=== PATIENT | male | born 1940 | race Caucasian/White ===

== ENCOUNTER 2016-10-06 19:11 | Inpatient (IN) | payer MEDICARE, OTHER ==
[2016-10-06] MEDS ORDERED: SODIUM CHLORIDE 0.9% 1,000 ML IV ONE ×2 (19:40)
[2016-10-06] MEDS ORDERED: INSULIN REGULAR HUMAN 100 UNIT in SODIUM CHLORIDE 0.9% 100ML 99 ML IV STA (19:53)
[2016-10-06] MEDS ORDERED: INSULIN REGULAR HUMAN 100 UNIT/1 ML 10 ML MDV ONE (19:57)
[2016-10-06] MEDS ORDERED: ACETAMINOPHEN 325 MG TABLET PO PRN (20:36)
[2016-10-06] MEDS ORDERED: ONDANSETRON 4 MG/2 ML VIAL IVP PRN (20:36)
[2016-10-06] MEDS ORDERED: TEMAZEPAM 15 MG CAPSULE PO PRN (20:36)
[2016-10-06] MEDS ORDERED: INSULIN REGULAR HUMAN 100 UNIT in SODIUM CHLORIDE 0.9% 100ML 99 ML IV SCH (21:00)
[2016-10-06] MEDS ORDERED: FAMOTIDINE 20 MG/50 ML 50 ML IV SCH (21:00)
[2016-10-06] MEDS ORDERED: NS W/20 MEQ KCL 1,000 ML IV SCH (21:00)
[2016-10-06] MEDS: SODIUM CHLORIDE FLUSH 0.9% 10 ML SYRINGE IVP SCH (22:36)
[2016-10-06] MEDS ORDERED: diphenhydrAMINE INJ 50 MG/ML VIAL IVP PRN (22:53)
[2016-10-06] MEDS ORDERED: METOPROLOL TARTRATE 25 MG TABLET PO STA (22:55)
[2016-10-06] MEDS ORDERED: SODIUM CHLORIDE 0.9% 1,000 ML IV SCH (23:00)
[2016-10-06] MEDS: BENZONATATE 100 MG CAPSULE PO PRN (23:17)
[2016-10-07] MEDS ORDERED: NS W/20 MEQ KCL 1,000 ML IV SCH (02:00)
[2016-10-07] MEDS ORDERED: INSULIN REGULAR HUMAN 100 UNIT in SODIUM CHLORIDE 0.9% 100ML 99 ML IV ONE (05:48)
[2016-10-07] MEDS: SODIUM CHLORIDE FLUSH 0.9% 10 ML SYRINGE IVP SCH ×3 (06:14→22:00)
[2016-10-07] MEDS: NEUTRA-PHOS 250 MG TABLET PO SCH ×2 (06:51→08:15)
[2016-10-07] MEDS ORDERED: D5.45NS W/20 MEQ KCL 1,000 ML IV SCH ×2 (07:00→07:59)
[2016-10-07] MEDS: ASPIRIN EC 81 MG TABLET PO SCH (08:15)
[2016-10-07] MEDS: CLOPIDOGREL 75 MG TABLET PO SCH (08:16)
[2016-10-07] MEDS: ENOXAPARIN 40 MG/0.4 ML SYRINGE SUBQ SCH (08:16)
[2016-10-07] MEDS: METOPROLOL TARTRATE 25 MG TABLET PO SCH (08:16)
[2016-10-07] MEDS: FAMOTIDINE 20 MG/50 ML 50 ML IV SCH (08:16)
[2016-10-07] MEDS: LOSARTAN 50 MG TABLET PO SCH (08:16)
[2016-10-07] MEDS ORDERED: GLUCAGON 1 MG/ML VIAL SUBQ PRN (08:59)
[2016-10-07] MEDS ORDERED: DEXTROSE 5% 1,000 ML IV PRN (08:59)
[2016-10-07] MEDS ORDERED: DEXTROSE GEL 37.5 GM TUBE PO PRN (08:59)
[2016-10-07] MEDS ORDERED: DEXTROSE 50% ABBOJECT 25 GM/50 ML SYRINGE IVP PRN (08:59)
[2016-10-07] MEDS ORDERED: INSULIN GLARGINE 300 UNIT/3 ML PEN SUBQ ONE (09:00)
[2016-10-07] MEDS ORDERED: BISOPROLOL FUMARATE 5 MG PO SCH (09:00)
[2016-10-07] MEDS ORDERED: FAMOTIDINE 20 MG/50 ML 50 ML IV SCH (09:00)
[2016-10-07] MEDS ORDERED: INSULIN ASPART 300 UNIT/3 ML PEN SUBQ SCH (12:00)
[2016-10-07] MEDS: BENZONATATE 100 MG CAPSULE PO PRN (13:42)
[2016-10-07] MEDS: INSULIN ASPART 300 UNIT/3 ML PEN SUBQ SCH ×2 (17:15→21:58)
[2016-10-07] MEDS ORDERED: INSULIN GLARGINE 300 UNIT/3 ML PEN SUBQ SCH (21:00)
[2016-10-08] MEDS ORDERED: INSULIN LISPRO 100 UNIT/1 ML 10 ML MDV SUBQ STA (02:15)
[2016-10-08] MEDS ORDERED: LORazepam 2 MG/ML SYRINGE IVP PRN (02:16)
[2016-10-08] MEDS ORDERED: INSULIN ASPART 300 UNIT/3 ML PEN SUBQ STA (02:21)
[2016-10-08] MEDS: SODIUM CHLORIDE FLUSH 0.9% 10 ML SYRINGE IVP SCH ×3 (05:21→20:58)
[2016-10-08] MEDS: INSULIN ASPART 300 UNIT/3 ML PEN SUBQ SCH ×7 (08:04→20:57)
[2016-10-08] MEDS ORDERED: SODIUM CHLORIDE 0.9% 1,000 ML IV ONE (08:15)
[2016-10-08] MEDS: ENOXAPARIN 40 MG/0.4 ML SYRINGE SUBQ SCH (08:50)
[2016-10-08] MEDS: ASPIRIN EC 81 MG TABLET PO SCH (08:50)
[2016-10-08] MEDS: FAMOTIDINE 20 MG/50 ML 50 ML IV SCH (08:50)
[2016-10-08] MEDS: CLOPIDOGREL 75 MG TABLET PO SCH (08:51)
[2016-10-08] MEDS: INSULIN GLARGINE 300 UNIT/3 ML PEN SUBQ SCH (08:55)
[2016-10-08] MEDS: METOPROLOL TARTRATE 25 MG TABLET PO SCH ×3 (08:56→20:56)
[2016-10-08] MEDS: LOSARTAN 50 MG TABLET PO SCH (08:56)
[2016-10-08] MEDS ORDERED: MULTIVITAMIN 10 ML, THIAMINE INJ 100 MG, FOLIC ACID INJ 1 MG in SODIUM CHLORIDE 0.9% 1,... IV SCH (09:00)
[2016-10-08] MEDS ORDERED: METOPROLOL 5 MG/5 ML VIAL IVP STA ×2 (09:11→18:25)
[2016-10-08] MEDS ORDERED: SODIUM CHLORIDE 0.9% 250 ML IV ONE (10:22)
[2016-10-08] MEDS: cefTRIAXone 1 GM in SODIUM CHLORIDE 0.9% MINIBAG 100 ML IV SCH (10:26)
[2016-10-08] MEDS: AZITHROMYCIN INJ 500 MG in SODIUM CHLORIDE 0.9% 250 ML IV SCH (11:15)
[2016-10-08] MEDS ORDERED: METOPROLOL TARTRATE 50 MG TABLET PO STA (18:44)
[2016-10-08] MEDS: ATORVASTATIN 10 MG TABLET PO SCH (20:55)
[2016-10-08] MEDS: SODIUM CHLORIDE FLUSH 0.9% 10 ML SYRINGE IVP PRN (20:58)
[2016-10-09] MEDS ORDERED: SODIUM CHLORIDE 0.9% 1,000 ML IV SCH (00:57)
[2016-10-09] MEDS ORDERED: DIGOXIN 500 MCG/2 ML AMP IVP STA ×2 (02:15→06:14)
[2016-10-09] MEDS ORDERED: DIGOXIN 500 MCG/2 ML AMP IVP ONE ×2 (02:17→02:33)
[2016-10-09] MEDS: SODIUM CHLORIDE FLUSH 0.9% 10 ML SYRINGE IVP PRN ×3 (02:40→08:48)
[2016-10-09] MEDS ORDERED: DIGOXIN 500 MCG/2 ML AMP IVP SCH (02:51)
[2016-10-09] MEDS ORDERED: diltiaZEM INJ 5 MG/ML VIAL IVP SCH (03:19)
[2016-10-09] MEDS ORDERED: SODIUM CHLORIDE 0.9% 1,000 ML IV ONE (05:03)
[2016-10-09] MEDS: SODIUM CHLORIDE FLUSH 0.9% 10 ML SYRINGE IVP SCH ×3 (05:18→21:11)
[2016-10-09] MEDS: ASPIRIN EC 81 MG TABLET PO SCH (08:33)
[2016-10-09] MEDS: CLOPIDOGREL 75 MG TABLET PO SCH (08:34)
[2016-10-09] MEDS: ENOXAPARIN 40 MG/0.4 ML SYRINGE SUBQ SCH (08:34)
[2016-10-09] MEDS: LOSARTAN 50 MG TABLET PO SCH (08:38)
[2016-10-09] MEDS: BENZONATATE 100 MG CAPSULE PO PRN (08:39)
[2016-10-09] MEDS: METOPROLOL TARTRATE 25 MG TABLET PO SCH (08:39)
[2016-10-09] MEDS: cefTRIAXone 1 GM in SODIUM CHLORIDE 0.9% MINIBAG 100 ML IV SCH (08:42)
[2016-10-09] MEDS: INSULIN ASPART 300 UNIT/3 ML PEN SUBQ SCH ×7 (08:53→21:08)
[2016-10-09] MEDS: INSULIN GLARGINE 300 UNIT/3 ML PEN SUBQ SCH (08:56)
[2016-10-09] MEDS: FAMOTIDINE 20 MG/50 ML 50 ML IV SCH (09:33)
[2016-10-09] MEDS: AZITHROMYCIN INJ 500 MG in SODIUM CHLORIDE 0.9% 250 ML IV SCH (11:49)
[2016-10-09] MEDS ORDERED: METOPROLOL TARTRATE 25 MG TABLET PO SCH (12:33)
[2016-10-09] MEDS ORDERED: POTASSIUM CHLORIDE 20 MEQ TABLET PO STA (12:33)
[2016-10-09] MEDS ORDERED: METOPROLOL TARTRATE 50 MG TABLET PO STA (12:50)
[2016-10-09] MEDS ORDERED: INSULIN ASPART 300 UNIT/3 ML PEN SUBQ SCH (12:51)
[2016-10-09] MEDS: ATORVASTATIN 10 MG TABLET PO SCH (21:11)
[2016-10-10] MEDS: BENZONATATE 100 MG CAPSULE PO PRN ×3 (02:34→23:45)
[2016-10-10] MEDS: SODIUM CHLORIDE FLUSH 0.9% 10 ML SYRINGE IVP SCH ×3 (05:13→21:08)
[2016-10-10] MEDS ORDERED: POTASSIUM CHLORIDE 20 MEQ TABLET PO STA (06:49)
[2016-10-10] MEDS: NEUTRA-PHOS 250 MG TABLET PO SCH ×3 (08:19→16:34)
[2016-10-10] MEDS: SACCHAROMYCES BOULARDII 250 MG CAPSULE PO SCH ×2 (08:19→16:35)
[2016-10-10] MEDS: ASPIRIN EC 81 MG TABLET PO SCH (08:20)
[2016-10-10] MEDS: LOSARTAN 50 MG TABLET PO SCH (08:20)
[2016-10-10] MEDS: CLOPIDOGREL 75 MG TABLET PO SCH (08:20)
[2016-10-10] MEDS: cefTRIAXone 1 GM in SODIUM CHLORIDE 0.9% MINIBAG 100 ML IV SCH (08:20)
[2016-10-10] MEDS: METOPROLOL TARTRATE 50 MG TABLET PO SCH ×2 (08:21→21:08)
[2016-10-10] MEDS: INSULIN ASPART 300 UNIT/3 ML PEN SUBQ SCH ×7 (08:27→21:08)
[2016-10-10] MEDS: INSULIN GLARGINE 300 UNIT/3 ML PEN SUBQ SCH (08:28)
[2016-10-10] MEDS: ENOXAPARIN 40 MG/0.4 ML SYRINGE SUBQ SCH (08:28)
[2016-10-10] MEDS: FAMOTIDINE 20 MG/50 ML 50 ML IV SCH (09:27)
[2016-10-10] MEDS ORDERED: DIGOXIN 125 MCG TABLET PO ONE (10:00)
[2016-10-10] MEDS: SODIUM CHLORIDE FLUSH 0.9% 10 ML SYRINGE IVP PRN (10:04)
[2016-10-10] MEDS: DIGOXIN 125 MCG TABLET PO SCH ×2 (16:34→23:40)
[2016-10-10] MEDS: ATORVASTATIN 10 MG TABLET PO SCH (21:08)
[2016-10-11] MEDS: SODIUM CHLORIDE FLUSH 0.9% 10 ML SYRINGE IVP SCH ×2 (04:48→13:15)
[2016-10-11] MEDS: INSULIN ASPART 300 UNIT/3 ML PEN SUBQ SCH ×4 (08:23→11:52)
[2016-10-11] MEDS: ASPIRIN EC 81 MG TABLET PO SCH (08:24)
[2016-10-11] MEDS: NEUTRA-PHOS 250 MG TABLET PO SCH ×2 (08:24→11:54)
[2016-10-11] MEDS: SACCHAROMYCES BOULARDII 250 MG CAPSULE PO SCH (08:24)
[2016-10-11] MEDS: CLOPIDOGREL 75 MG TABLET PO SCH (08:25)
[2016-10-11] MEDS: INSULIN GLARGINE 300 UNIT/3 ML PEN SUBQ SCH (08:25)
[2016-10-11] MEDS: FAMOTIDINE 20 MG/50 ML 50 ML IV SCH (08:25)
[2016-10-11] MEDS: BENZONATATE 100 MG CAPSULE PO PRN (08:27)
[2016-10-11] MEDS: LOSARTAN 50 MG TABLET PO SCH (08:27)
[2016-10-11] MEDS: METOPROLOL TARTRATE 50 MG TABLET PO SCH (08:28)
[2016-10-11] MEDS ORDERED: METOPROLOL TARTRATE 50 MG TABLET PO SCH (08:28)
[2016-10-11] MEDS: ENOXAPARIN 40 MG/0.4 ML SYRINGE SUBQ SCH (08:31)
[2016-10-11] MEDS ORDERED: POTASSIUM CHLORIDE 20 MEQ TABLET PO STA (08:50)
[2016-10-11] MEDS ORDERED: levoFLOXacin 250 MG TABLET PO SCH (09:00)
[2016-10-12] MEDS ORDERED: DIGOXIN 125 MCG TABLET PO SCH (09:00)
== END 2016-10-11 14:20 | disposition home or self-care (01) | DRG 637 ==
DX: E13.10 Other specified diabetes mellitus with ketoacidosis without coma (principal); J18.9 Pneumonia, unspecified organism; N17.9 Acute kidney failure, unspecified; I10 Essential (primary) hypertension; E78.00 Pure hypercholesterolemia, unspecified; I48.91 Unspecified atrial fibrillation; I12.9 Hypertensive chronic kidney disease with stage 1 through stage 4 chronic kidney disease, or unspecified chronic kidney disease; N18.9 Chronic kidney disease, unspecified; R21 Rash and other nonspecific skin eruption; I25.10 Atherosclerotic heart disease of native coronary artery without angina pectoris; E87.6 Hypokalemia; E83.39 Other disorders of phosphorus metabolism; R31.9 Hematuria, unspecified; E86.0 Dehydration; I95.2 Hypotension due to drugs; T44.7X5A Adverse effect of beta-adrenoreceptor antagonists, initial encounter; Y92.239 Unspecified place in hospital as the place of occurrence of the external cause; R09.02 Hypoxemia; I73.9 Peripheral vascular disease, unspecified; I71.2 Thoracic aortic aneurysm, without rupture; E78.5 Hyperlipidemia, unspecified; Z79.82 Long term (current) use of aspirin; Z95.828 Presence of other vascular implants and grafts; Z79.02 Long term (current) use of antithrombotics/antiplatelets; Z95.5 Presence of coronary angioplasty implant and graft; Z71.3 Dietary counseling and surveillance

== ENCOUNTER 2016-10-25 15:11 | Outpatient (CLI) | payer MEDICARE, OTHER | END 2016-10-25 15:12 | disposition home or self-care (01) | DX: I48.91 Unspecified atrial fibrillation (principal) ==

== ENCOUNTER 2017-05-30 09:13 | Outpatient (CLI) | payer MEDICARE, OTHER ==
[2017-05-30 18:31] LABS: HEMOGLOBIN A1C 0.78 g/dL
[2017-05-30 18:44] LABS: ALBUMIN/GLOBULIN RATIO 1.2 (1.0-2.2); BILIRUBIN,TOTAL 0.7 mg/dL (0.2-1.0); BUN - BLOOD UREA NITROGEN 22 mg/dL (6-20); CALCIUM 9.2 mg/dL (8.5-10.3); CARBON DIOXIDE - CO2 26 mmol/L (21-32); CHLORIDE 104 mmol/L (101-111); CHOL/HDL RATIO 6.1 (<5.0); CHOLESTEROL 171 mg/dL; CREATININE 1.5 mg/dL (0.6-1.2); GFR - MDRD 45 (>89); GLUCOSE 153 mg/dL (70-100); HDL CHOLESTEROL 28 mg/dL; LDL/HDL RATIO 2.4 (<3.6); POTASSIUM 4.5 mmol/L (3.5-5.0); SODIUM 137 mmol/L (135-145); TOTAL PROTEIN 7.3 g/dL (6.7-8.2); TRIGLYCERIDES 381 mg/dL; VLDL CHOLESTEROL 76 mg/dL
== END 2017-05-30 09:14 | disposition home or self-care (01) ==
LOC: LAB.F 09:13
PROVIDERS: ATTEND Internal Medicine
DX: C61 Malignant neoplasm of prostate (principal); E78.5 Hyperlipidemia, unspecified; E11.9 Type 2 diabetes mellitus without complications; I25.810 Atherosclerosis of coronary artery bypass graft(s) without angina pectoris
CPT/HCPCS: 36415; 80053; 80061; 83036; 84153

== ENCOUNTER 2017-09-13 09:04 | Outpatient (CLI) | payer MEDICARE, OTHER ==
[2017-09-13 18:02] LABS: CALCIUM 9.1 mg/dL (8.5-10.3); CREATININE 1.4 mg/dL (0.6-1.2)
[2017-09-13 18:09] LABS: HB2 TOTAL 16.5 g/dL; HEMOGLOBIN A1C 0.96 g/dL; HEMOGLOBIN A1C % 7.5 % (4.6-6.2)
== END 2017-09-13 09:05 | disposition home or self-care (01) ==
LOC: LAB.F 09:04
PROVIDERS: ATTEND Internal Medicine
DX: E11.9 Type 2 diabetes mellitus without complications (principal); N18.9 Chronic kidney disease, unspecified
CPT/HCPCS: 36415; 80048; 83036

== ENCOUNTER 2018-02-27 08:44 | Outpatient (CLI) | payer MEDICARE, OTHER ==
[2018-02-27 11:14] LABS: EOSINOPHILS # (AUTO) 0.3 10^3/uL (0.0-0.7); EOSINOPHILS % (AUTO) 6.8 %; HGB - HEMOGLOBIN 14.2 g/dL (14.0-18.0); LYMPHOCYTES # (AUTO) 0.9 10^3/uL (1.5-3.5); LYMPHOCYTES % (AUTO) 22.5 %; MEAN CORPUSCULAR HEMOGLOBIN 34.4 pg (27.0-31.0); MEAN CORPUSCULAR HGB CONC 33.8 g/dL (32.0-36.0); MEAN CORPUSCULAR VOLUME 101.8 fL (80.0-94.0); MONOCYTES # (AUTO) 0.4 10^3/uL (0.0-1.0); MONOCYTES % (AUTO) 8.7 %; NEUTROPHILS # (AUTO) 2.5 10^3/uL (1.5-6.6); PLT - PLATELET COUNT 132 10^3/uL (130-450); RED BLOOD COUNT 4.12 10^6/uL (4.70-6.10); RED CELL DISTRIBUTION WIDTH 13.1 % (12.0-15.0); WHITE BLOOD COUNT 4.1 x10^3/uL (4.8-10.8)
[2018-02-27 11:31] LABS: ALBUMIN 4.1 g/dL (3.2-5.5); ALBUMIN/GLOBULIN RATIO 1.3 (1.0-2.2); ALKALINE PHOSPHATASE 61 IU/L (42-121); ALT ALANINE AMINOTRANSFERASE 54 IU/L (10-60); AST ASPARTATE AMINOTRANSFERASE 55 IU/L (10-42); BUN - BLOOD UREA NITROGEN 25 mg/dL (6-20); CALCIUM 9.4 mg/dL (8.5-10.3); CARBON DIOXIDE - CO2 29 mmol/L (21-32); CHLORIDE 105 mmol/L (101-111); CHOL/HDL RATIO 4.6 (<5.0); CHOLESTEROL 157 mg/dL; CREATININE 1.5 mg/dL (0.6-1.2); GFR - MDRD 45 (>89); GLUCOSE 155 mg/dL (70-100); HDL CHOLESTEROL 34 mg/dL; LDL CHOLESTEROL,CALCULATED 68 mg/dL; SODIUM 139 mmol/L (135-145); TOTAL PROTEIN 7.3 g/dL (6.7-8.2); VLDL CHOLESTEROL 55 mg/dL
[2018-02-27 11:50] LABS: HB2 TOTAL 15.1 g/dL; HEMOGLOBIN A1C 0.77 g/dL; HEMOGLOBIN A1C % 6.8 % (4.6-6.2)
== END 2018-02-27 08:45 | disposition home or self-care (01) ==
LOC: LAB.F 08:44
PROVIDERS: ATTEND Internal Medicine
DX: N18.9 Chronic kidney disease, unspecified (principal); E11.9 Type 2 diabetes mellitus without complications; C61 Malignant neoplasm of prostate; E78.5 Hyperlipidemia, unspecified; I25.810 Atherosclerosis of coronary artery bypass graft(s) without angina pectoris
CPT/HCPCS: 36415; 80053; 80061; 83036; 83721; 84153; 85025

== ENCOUNTER 2018-09-11 15:12 | Outpatient (CLI) | payer MEDICARE, OTHER ==
--- NOTE | 2018-09-12 11:43 | Ultrasound Report ---
Reason: ANEURYSM OF AORTA IN DISEASES CLASSIFIED ELSEWHERE Procedure Date: 09/11/2018 Accession Number: [id number] / [id number] Procedure: US - Retroperitoneal Limited CPT Code: FULL RESULT: EXAM: AORTIC DOPPLER ULTRASOUND EXAM DATE: 09/11/2018 04:00 PM. CLINICAL HISTORY: Aneurysm of aorta in diseases classified elsewhere. COMPARISON: None. TECHNIQUE: Real-time sonographic imaging of retroperitoneal vascular structures, including color-flow, Doppler flow and spectral analysis was performed by the remote advisor. Multiple petroleum products sales representative static images were saved for review. FINDINGS: Aorta: The abdominal aorta was adequately visualized. There is a fusiform aneurysm of the infrarenal aorta with maximal dimension of 4.1 cm, reportedly 4.0 cm in 2016. This difference is possibly due to technique. Aorta: Proximal: Sagittal PA: 2.3 x 2.5 cm. Mid: Transverse: 2.6 x 2.5 cm. Distal: Transverse: 3.8 x 3.6 cm. (Distal AAA) 3.6 x 4.1 cm. (Prox AAA) Iliacs: Right Iliac: Transverse: 1.7 x 1.7 cm. Bilateral patent. Left Iliac: Transverse: 1.8 x 1.8 cm. Stents visualized. Iliac Vessels: The visualized proximal common iliac arteries are stented with measurements as above. Other: None. IMPRESSION: Abdominal aortic aneurysm measuring up to 4.1 cm. RADIA
== END 2018-09-11 15:13 | disposition home or self-care (01) ==
LOC: DI 15:12
PROVIDERS: ATTEND Nurse Practitioner
DX: I71.4 Abdominal aortic aneurysm, without rupture (principal)
CPT/HCPCS: 76775

== ENCOUNTER 2019-05-12 08:05 | Outpatient (CLI) | payer MEDICARE, OTHER ==
[2019-05-12 10:31] LABS: BASOPHILS # (AUTO) 0.1 10^3/uL (0.0-0.1); BASOPHILS % (AUTO) 1.2 %; EOSINOPHILS # (AUTO) 0.3 10^3/uL (0.0-0.7); EOSINOPHILS % (AUTO) 5.9 %; HGB - HEMOGLOBIN 13.3 g/dL (14.0-18.0); LYMPHOCYTES # (AUTO) 1.2 10^3/uL (1.5-3.5); LYMPHOCYTES % (AUTO) 20.6 %; MEAN CORPUSCULAR HEMOGLOBIN 34.4 pg (27.0-31.0); MEAN CORPUSCULAR HGB CONC 32.2 g/dL (32.0-36.0); MEAN CORPUSCULAR VOLUME 106.7 fL (80.0-94.0); MEAN PLATELET VOLUME 10.7 fL (7.4-11.4); MONOCYTES # (AUTO) 0.4 10^3/uL (0.0-1.0); MONOCYTES % (AUTO) 6.6 %; NEUTROPHILS # (AUTO) 3.7 10^3/uL (1.5-6.6); PLT - PLATELET COUNT 140 10^3/uL (130-450); RED BLOOD COUNT 3.87 10^6/uL (4.70-6.10); RED CELL DISTRIBUTION WIDTH 13.3 % (12.0-15.0); WHITE BLOOD COUNT 5.7 x10^3/uL (4.8-10.8)
[2019-05-12 10:42] LABS: HB2 TOTAL 14.3 g/dL; HEMOGLOBIN A1C 0.76 g/dL
[2019-05-12 11:26] LABS: FREE T4 (FREE THYROXINE) 0.75 ng/dL (0.58-1.64)
[2019-05-12 11:31] LABS: ALBUMIN 4.2 g/dL (3.2-5.5); ALBUMIN/GLOBULIN RATIO 1.2 (1.0-2.2); ALKALINE PHOSPHATASE 86 IU/L (42-121); ALT ALANINE AMINOTRANSFERASE 42 IU/L (10-60); AST ASPARTATE AMINOTRANSFERASE 41 IU/L (10-42); BILIRUBIN,TOTAL 1.1 mg/dL (0.2-1.0); BUN - BLOOD UREA NITROGEN 24 mg/dL (6-20); CALCIUM 9.1 mg/dL (8.5-10.3); CARBON DIOXIDE - CO2 28 mmol/L (21-32); CHLORIDE 104 mmol/L (101-111); CHOL/HDL RATIO 4.5 (<5.0); CHOLESTEROL 153 mg/dL; CREATININE 1.4 mg/dL (0.6-1.2); GFR - MDRD 49 (>89); GLUCOSE 153 mg/dL (70-100); HDL CHOLESTEROL 34 mg/dL; LDL CHOLESTEROL,CALCULATED 73 mg/dL; LDL/HDL RATIO 2.1 (<3.6); SODIUM 141 mmol/L (135-145); TOTAL PROTEIN 7.6 g/dL (6.7-8.2); URIC ACID 4.6 mg/dL (2.6-7.2); VLDL CHOLESTEROL 46 mg/dL
== END 2019-05-12 08:06 | disposition home or self-care (01) ==
LOC: LAB.S 08:05
PROVIDERS: ATTEND Nurse Practitioner
DX: E11.22 Type 2 diabetes mellitus with diabetic chronic kidney disease (principal); N18.9 Chronic kidney disease, unspecified; I25.810 Atherosclerosis of coronary artery bypass graft(s) without angina pectoris; E78.5 Hyperlipidemia, unspecified; I48.91 Unspecified atrial fibrillation; M1A.9XX0 Chronic gout, unspecified, without tophus (tophi)
CPT/HCPCS: 36415; 80053; 80061; 83036; 83721; 84439; 84443; 84550; 85025

== ENCOUNTER 2021-10-05 08:22 | Day surgery (SDC) | payer MEDICARE, OTHER ==
[~2021-10-05 08:22] MED LIST: CYCLOPENTOLATE 1% OPHTH DROPS 2 ML ONE; KETOROLAC 0.45% OPHTH DROPS ONE; PHENYLEPHRINE 2.5% OPHTH 2 ML DROPS ONE; PROPARACAINE 0.5% OPHTH DROPS 15 ML ONE
[2021-10-05] MEDS ORDERED: LACTATED RINGERS 1,000 ML IV ONE ×2 (08:50→09:38)
--- NOTE | 2021-10-05 09:04 | ANESTHESIA ---
Pre-Anesthesia VS, & Labs - Diagnosis senile combined cataract - Procedure right cataract extraction with IOL Vital Signs: Temp Pulse Resp BP Pulse Ox 36.5 C 58 L 19 141/57 H 98 10/05/21 08:34 10/05/21 08:34 10/05/21 08:34 10/05/21 08:34 10/05/21 08:34 Height: 6 ft Weight (kg): 84.6 kg Body Mass Index: 25.2 BMI Classification: Overweight - NPO >8 hours - Lab Results Current Lab Results: Laboratory Tests 10/05/21 08:48: POC Whole Bld Glucose 133 H Home Medications and Allergies Home Medications: Ambulatory Orders Clopidogrel [Plavix] 75 mg PO DAILY 10/04/21 Glimepiride 4 tab PO BID 10/04/21 Metoprolol Tartrate [Lopressor] 50 mg PO DAILY 10/04/21 Aspirin [Aspirin EC] 81 mg PO DAILY 10/08/16 allopurinoL [Allopurinol] 100 mg PO DAILY 10/08/16 Clopidogrel [Plavix] 75 mg PO DAILY 10/04/21 Glimepiride 4 tab PO BID 10/04/21 Metoprolol Tartrate [Lopressor] 50 mg PO DAILY 10/04/21 Allergies/Adverse Reactions: Allergies Allergy/AdvReac Type Severity Reaction Status Date / Time No Known Drug Allergies Allergy Verified 10/06/16 19:17 Anes History & Medical History - Anesthetic History Anesthesia Complications: reports: No previous complications - Medical History Cardiovascular: reports: Hypertension, High cholesterol Pulmonary: reports: None Gastrointestinal: reports: GERD Urinary: reports: None Musculoskeletal: reports: None Endocrine/Autoimmune: reports: Type 2 diabetes Blood Disorders: reports: None Skin: reports: Other Smoking Status: Never smoker History of Cancer?: No - Surgical History Cardiothoracic: reports: Coronary stent Exam General: Alert, Oriented x3 Dental: WNL Mouth Opening: Greater than 4 Fingerbreadths Mallampati classification: II Thyromental Distance: greater than 6 cm Respiratory: Lungs clear Cardiovascular: Regular rate Plan Anesthesia Type: MAC Consent for Procedure(s) Verified and Reviewed: Yes Code Status: Attempt Resuscitation ASA classification: 3-Severe systemic disease Is this case an emergency?: No
[2021-10-05] MEDS ORDERED: MIDAZOLAM 2 MG/2 ML VIAL ONE (09:09)
[2021-10-05] MEDS ORDERED: BRIMONIDINE 0.2% OPHTH DROPS 5 ML OPTH ONE (09:28)
[2021-10-05] MEDS ORDERED: EPINEPHrine 1 MG/ML AMP IR ONE (09:28)
[2021-10-05] MEDS ORDERED: BSS/LIDOCAINE/EPINEPHRINE 1 ML SYRINGE IO ONE (09:28)
[2021-10-05] MEDS ORDERED: TRIAMCIN/MOXIFLOX OPHTHALMIC 0.6 ML VIAL IO ONE ×2 (09:28→11:38)
[2021-10-05] MEDS ORDERED: TIMOLOL 0.5% OPHTH DROPS OPTH ONE (09:28)
[2021-10-05] MEDS ORDERED: VANCOMYCIN OPHTHALMI 8MG/0.8ML 8 MG/0.8 ML SYRINGE IO ONE (09:29)
[2021-10-05] MEDS ORDERED: PROPARACAINE 0.5% OPHTH DROPS 15 ML EACHEYE ONE (09:29)
--- NOTE | 2021-10-05 09:46 | OPERATIVE REPORT ---
Operative Report - Other Other Information/Narrative: Date of Surgery: 10/05/21 Preop Dx: Visually significant cataract right eye. This was the first cataract surgery. Postop Dx: Same Procedure: Phacoemulsification with posterior chamber intraocular lens implant right eye Surgeon: Dr. Gordon Meza Anesthesia: Monitored anesthesia care Complications: None Operative Indications: This is a 81-year-old M with progressive vision loss in the right eye due to 2+ nuclear sclerotic, 2+ cortical and vacuolar cataract. Best corrected visual acuity was 20/40 with glare to 20/100 vision in the right eye. Indications for surgery were: - Overall decrease in vision - Difficulty seeing words on a computer screen - Difficulty reading - Difficulty seeing words, closed captions, or game scores on TV - Difficulty seeing street signs - Difficulty driving in low light or at night - Difficulty driving at night because of headlights from other vehicles - Difficulty with glare or bright lights in any situation The patient was consented at length concerning the risks and benefits of cataract surgery after which the patient expressed a desire to proceed with surgery. Operative Procedure: The patient was taken into OR#3 and placed under monitored anesthesia care. A surgical time-out was conducted confirming correct patient, correct procedure, and correct surgical site. The patient was given topical anesthesia and then prepped and draped in the usual sterile fashion. The eye was entered at the 6 and 3 oclock positions. Intracameral Shugarcaine was injected into the anterior chamber followed by a dispersive viscoelastic. A continuous-tear curvilinear capsulorhexis was performed. The nucleus was hydrodissected and phacoemulsified. The cortex was evacuated using automated infusion and aspiration. A cohesive viscoelastic was injected into the capsular bag and a 21.0 diopter intraocular lens was inserted into the bag. Infusion and aspiration were used to evacuate the viscoelastic materials from the eye. The wounds were hydrated and the eye inflated to physiologic pressure using balanced salt solution. Approximately 0.25ml of a mixture of triamcinolone and moxifloxacin was injected trans-sclerally into the vitreous in the inferotemporal quadrant using a 30 gauge cannula. An additional 0.55ml of a mixture of triamcinolone, moxifloxacin, and vancomycin was injected subconjunctivally in the superior quadrant for infection and inflammation prophylaxis. Wound integrity was checked with Weck-Leydi sponges. The patient was taken from the operating room in good condition and given post-op instructions.
--- NOTE | 2021-10-05 09:54 | ANESTHESIA POST OP EVALUATION ---
Anesthesia Post Eval - Post Anesthesia Eval Vitals: Last Vital Signs Temp 36.3 C L 10/05/21 09:45 Pulse 55 L 10/05/21 09:50 Resp 12 10/05/21 09:50 BP 123/64 10/05/21 09:50 Pulse Ox 98 10/05/21 09:50 CV Function Including HR & BP: Stable Pain Control: Satisfactory Nausea & Vomiting: Negative Mental Status: Baseline Respiratory Status: Airway Patent Hydration Status: Satisfactory Anesthesia Complications: None
[2021-10-05 10:29] VITALS: BP 119/69
[2021-10-05] MEDS ORDERED: BRIMONIDINE 0.2% OPHTH DROPS 5 ML ONE (11:39)
[2021-10-05] MEDS ORDERED: TIMOLOL 0.5% OPHTH DROPS ONE (11:39)
[2021-10-05] MEDS ORDERED: BSS/LIDOCAINE/EPINEPHRINE 1 ML VIAL ONE (11:39)
[2021-10-05] MEDS ORDERED: EPINEPHrine 1 MG/ML AMP ONE (11:39)
== END 2021-10-05 08:23 | disposition home or self-care (01) ==
LOC: SDS 08:22
PROVIDERS: ATTEND Ophthalmology
DX: E11.36 Type 2 diabetes mellitus with diabetic cataract (principal); H25.811 Combined forms of age-related cataract, right eye; Z79.84 Long term (current) use of oral hypoglycemic drugs
CPT/HCPCS: 66984; A9270; J3490; J7120

== ENCOUNTER 2022-02-09 09:01 | Outpatient (CLI) | payer MEDICARE, OTHER ==
[2022-02-09 14:55] LABS: CALCIUM 9.6 mg/dL (8.5-10.3); CREATININE 1.6 mg/dL (0.6-1.2); POTASSIUM 4.6 mmol/L (3.5-5.0)
[2022-02-09 20:19] LABS: ESTIMATED AVERAGE GLUCOSE 209 mg/dL (70-100); HEMOGLOBIN A1c% 8.9 % (4.27-6.07)
== END 2022-02-09 09:02 | disposition home or self-care (01) ==
LOC: LAB.S 09:01
PROVIDERS: ATTEND Nurse Practitioner
DX: E11.65 Type 2 diabetes mellitus with hyperglycemia (principal)
CPT/HCPCS: 36415; 80048; 83036

== ENCOUNTER 2022-07-27 09:00 | Outpatient (CLI) | payer MEDICARE, OTHER ==
[2022-07-27 15:20] LABS: ALBUMIN 3.8 g/dL (3.2-5.5); ALBUMIN/GLOBULIN RATIO 1.1 (1.0-2.2); ALKALINE PHOSPHATASE 74 IU/L (42-121); ALT ALANINE AMINOTRANSFERASE 27 IU/L (10-60); AST ASPARTATE AMINOTRANSFERASE 30 IU/L (10-42); BILIRUBIN,TOTAL 0.8 mg/dL (0.2-1.0); BUN - BLOOD UREA NITROGEN 25 mg/dL (6-20); CALCIUM 9.2 mg/dL (8.5-10.3); CARBON DIOXIDE - CO2 29 mmol/L (21-32); CHLORIDE 105 mmol/L (101-111); CHOL/HDL RATIO 6.7 (<5.0); CHOLESTEROL 167 mg/dL; CREATININE 1.4 mg/dL (0.6-1.2); GFR - MDRD 49 (>89); GLUCOSE 149 mg/dL (70-100); HDL CHOLESTEROL 25 mg/dL; LDL CHOLESTEROL,CALCULATED 82 mg/dL; LDL/HDL RATIO 3.3 (<3.6); POTASSIUM 4.2 mmol/L (3.5-5.0); SODIUM 141 mmol/L (135-145); TOTAL PROTEIN 7.2 g/dL (6.7-8.2); TRIGLYCERIDES 298 mg/dL; VLDL CHOLESTEROL 60 mg/dL
[2022-07-27 19:52] LABS: ESTIMATED AVERAGE GLUCOSE 180 mg/dL (70-100); HEMOGLOBIN A1c% 7.9 % (4.27-6.07)
== END 2022-07-27 09:01 | disposition home or self-care (01) ==
LOC: LAB.S 09:00
PROVIDERS: ATTEND Nurse Practitioner
DX: E11.22 Type 2 diabetes mellitus with diabetic chronic kidney disease (principal); E11.65 Type 2 diabetes mellitus with hyperglycemia; E78.2 Mixed hyperlipidemia
CPT/HCPCS: 36415; 80053; 80061; 82043; 82570; 83036; 83721

== ENCOUNTER 2024-03-17 23:26 | Outpatient (CLI) | payer MEDICARE, OTHER | END 2024-03-17 23:27 | disposition critical access hospital (66) | LOC: EMS 23:26 | DX: R51.9 Headache, unspecified (principal); R50.9 Fever, unspecified; R61 Generalized hyperhidrosis; R25.1 Tremor, unspecified; R32 Unspecified urinary incontinence | CPT/HCPCS: A0425; A0429 ==

== ENCOUNTER 2024-03-18 00:01 | Emergency (ER) | payer MEDICARE, OTHER ==
[2024-03-18 00:39] LABS: BASOPHILS % (AUTO) 0.2 %; EOSINOPHILS % (AUTO) 0.2 %; HCT - HEMATOCRIT 34.7 % (42.0-52.0); HGB - HEMOGLOBIN 11.2 g/dL (14.0-18.0); LYMPHOCYTES # (AUTO) 0.6 10^3/uL (1.5-3.5); LYMPHOCYTES % (AUTO) 6.8 %; MEAN CORPUSCULAR HEMOGLOBIN 34.3 pg (27.0-31.0); MEAN CORPUSCULAR HGB CONC 32.3 g/dL (32.0-36.0); MEAN CORPUSCULAR VOLUME 106.1 fL (80.0-94.0); MEAN PLATELET VOLUME 10.9 fL (7.4-11.4); MONOCYTES # (AUTO) 0.6 10^3/uL (0.0-1.0); MONOCYTES % (AUTO) 7.1 %; NEUTROPHILS # (AUTO) 7.3 10^3/uL (1.5-6.6); NEUTROPHILS % (AUTO) 85.2 %; PLT - PLATELET COUNT 89 10^3/uL (130-450); RED BLOOD COUNT 3.27 10^6/uL (4.70-6.10); RED CELL DISTRIBUTION WIDTH 13.2 % (12.0-15.0); WHITE BLOOD COUNT 8.6 x10^3/uL (4.8-10.8)
[2024-03-18 00:41] LABS: BILIRUBIN,URINE NEGATIVE (NEGATIVE); GLUCOSE, URINE (UA) 100 mg/dL (NEGATIVE); KETONES,URINE (UA) TRACE mg/dL (NEGATIVE); LEUKOCYTE ESTERASE, URINE NEGATIVE (NEGATIVE); NITRITE,URINE NEGATIVE (NEGATIVE); OCCULT BLOOD,URINE LARGE (NEGATIVE); PROTEIN,URINE 100 mg/dL (NEGATIVE); UROBILINOGEN,URINE 0.2 (NORMAL) E.U./dL (NORMAL)
[2024-03-18 00:45] LABS: CLARITY,URINE CLEAR (CLEAR)
[2024-03-18 00:47] LABS: WBC,URINE 0-3 /HPF (0-3)
[2024-03-18 00:48] LABS: BACTERIA,URINE None Seen /HPF (None Seen); SQUAMOUS EPITHELIAL CELL,UR NONE SEEN (<= Few)
--- NOTE | 2024-03-18 00:49 | ED Physician Documentation ---
History of Present Illness - Stated complaint Stated Complaint: GEN ILLNESS - Chief complaint Chief Complaint: General - Additonal information Additional information: 84-year-old male with history of diabetes, DKA, CAD, hypertension presents with fever, shortness of breath, generalized weakness and headache. The patient states that earlier today, he developed myalgias, fever (measured at home though he is not sure to what), intermittent and not sudden or severe headache, and general malaise with generalized weakness. No focal weakness or numbness. No cough, shortness of breath, abdominal or back or flank pain. No falls. He took Tylenol earlier in the morning but not recently otherwise. He felt some difficulty urinating with intermittent urinary incontinence at home. No dysuria. No diarrhea or constipation. No blood in stool. No rash. No recent antibiotics. No neck pain or stiffness or photophobia. No confusion. No other new concerns. ROS Constitutional: +fever, no chills Eyes: no visual disturbance, no discharge Ears, Nose, Mouth, Throat: no rhinorrhea, no sore throat Cardiovascular: no chest pain, no palpitations Respiratory: no cough, no shortness of breath Gastrointestinal: no abdominal pain, no vomiting, no diarrhea Genitourinary: no dysuria, no hematuria, +incontinence Musculoskeletal: no back pain, no neck stiffness Skin: no rash, no wound Neurological: no focal weakness, no focal numbness PD PAST MEDICAL HISTORY - Past Medical History Past Medical History: Yes Cardiovascular: Hypertension, High cholesterol Respiratory: None Endocrine/Autoimmune: Type 2 diabetes GI: GERD : None HEENT: Chronic hearing loss, Other Psych: None Musculoskeletal: None Derm: Other - Past Surgical History Past Surgical History: Yes Cardiovascular: Coronary stent - Present Medications Home Medications: Ambulatory Orders Medication Instructions Recorded Confirmed Aspirin [Aspirin EC] 81 mg PO DAILY 10/08/16 03/18/24 allopurinoL [Allopurinol] 100 mg PO DAILY 10/08/16 10/04/21 Insulin Glargine [Lantus Solostar] 25 unit SUBQ DAILY #3 pen 10/11/16 10/04/21 Clopidogrel [Plavix] 75 mg PO DAILY 10/04/21 03/18/24 Glimepiride 4 tab PO BID 10/04/21 10/04/21 Metoprolol Tartrate [Lopressor] 50 mg PO DAILY 10/04/21 03/18/24 Furosemide [Lasix] 20 mg PO ONCE 03/18/24 03/18/24 Losartan [Cozaar] 25 mg PO DAILY 03/18/24 03/18/24 Pioglitazone [Actos] 30 mg PO DAILY 03/18/24 03/18/24 Potassium Chloride [Klor-Con 10] 10 meq PO DAILY 03/18/24 03/18/24 Rosuvastatin Calcium 20 mg PO HS 03/18/24 03/18/24 - Allergies Allergies/Adverse Reactions: Allergies Allergy/AdvReac Type Severity Reaction Status Date / Time No Known Drug Allergies Allergy Verified 03/18/24 00:11 - Social History Does the pt smoke?: No Smoking Status: Never smoker Does the pt drink ETOH?: Yes Does the pt have substance abuse?: No - Immunizations Immunizations are current?: Yes - POLST Patient has POLST: No PD ED PE NORMAL - Free text exam Free text exam: Const: no acute distress, +toxic appearing; remains calm, conversant, pleasant Eyes: PERRLA, EOMI ENT: mucous membranes moist Neck: supple, non-tender Resp: no respiratory distress, clear to auscultation bilaterally Card: regular rate and rhythm, no murmurs Abd: non tender diffusely, no rigidity or rebound or guarding; suprapubic fullness present with PVR bladder scan showing >200mL urine Back: no T or L spine tenderness, no CVA tenderness bilaterally Extrem: no deformities, no swelling bilateral lower extremities, 2+ distal pulses all extremities Neuro: ANOx4, yard worker grossly 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, grossly intact sensation and strength all extremities Skin: no rash, warm and dry Results - Vitals Vitals: Vital Signs - 24 hr 03/18/24 03/18/24 03/18/24 00:11 00:53 02:14 Temperature 37.9 C 36.6 C Heart Rate 98 103 H 108 H Respiratory 18 18 20 Rate Blood Pressure 170/79 H 171/111 H 187/98 H O2 Saturation 98 96 95 03/18/24 03/18/24 04:00 05:38 Temperature 36.4 C L 36.9 C Heart Rate 98 98 Respiratory 16 16 Rate Blood Pressure 148/69 H 168/72 H O2 Saturation 98 98 Oxygen O2 Source Room air - EKG (time done) EKG NSR without acute ischemia or immediately concerning interval prolongation on my review. Please see MDM. EKG releavant findings:: EKG personally interpreted by author of this note. Relevant findings are: - Labs Labs: Laboratory Tests 03/18/24 03/18/24 03/18/24 00:20 00:20 00:20 WBC 8.6 RBC 3.27 L Hgb 11.2 L Hct 34.7 L MCV 106.1 H MCH 34.3 H MCHC 32.3 RDW 13.2 Plt Count 89 L MPV 10.9 Neut # (Auto) 7.3 H Lymph # (Auto) 0.6 L Grady # (Auto) 0.6 Eos # (Auto) 0.0 Baso # (Auto) 0.0 Absolute Nucleated RBC 0.00 Nucleated RBC % 0.0 Sodium 133 L Potassium 3.8 Chloride 98 L Carbon Dioxide 24 Anion Gap 11.0 BUN 14 Creatinine 1.4 H Estimated GFR (MDRD) 48 L Glucose 162 H Lactic Acid Calcium 9.4 Total Bilirubin 2.1 H AST 39 ALT 28 Alkaline Phosphatase 106 Total Protein 7.2 Albumin 3.8 Globulin 3.4 Albumin/Globulin Ratio 1.1 Urine Color YELLOW Urine Clarity CLEAR Urine pH 8.0 H Ur Specific [place] 1.015 Urine Protein 100 H Urine Glucose (UA) 100 H Urine Ketones TRACE Urine Occult Blood LARGE H Urine Nitrite NEGATIVE Urine Bilirubin NEGATIVE Urine Urobilinogen 0.2 (NORMAL) Ur Leukocyte Esterase NEGATIVE Urine RBC 11-25 H Urine WBC 0-3 Ur Squamous Epith Cells NONE SEEN Urine Bacteria None Seen Ur Microscopic Review INDICATED Urine Culture Comments NOT INDICATED Nasal Adenovirus (PCR) Nasal B. parapertussis DNA (PCR) Nasal Coronavir 229E PCR Nasal Coronavir HKU1 PCR Nasal Coronavir NL63 PCR Nasal Coronavir OC43 PCR Nasal Enterovir/Rhinovir PCR Nasal Influenza B PCR Nasal Influenza A PCR Nasal Parainfluen 1 PCR Nasal Parainfluen 2 PCR Nasal Parainfluen 3 PCR Nasal Parainfluen 4 PCR Nasal RSV (PCR) Nasal B.pertussis DNA PCR Nasal C.pneumoniae (PCR) Ke[place] Human Metapneumo PCR Nasal M.pneumoniae (PCR) Nasal SARS-CoV-2 (PCR) 03/18/24 03/18/24 03/18/24 00:20 01:36 03:29 WBC RBC Hgb Hct MCV MCH MCHC RDW Plt Count MPV Neut # (Auto) Lymph # (Auto) Grady # (Auto) Eos # (Auto) Baso # (Auto) Absolute Nucleated RBC Nucleated RBC % Sodium Potassium Chloride Carbon Dioxide Anion Gap BUN Creatinine Estimated GFR (MDRD) Glucose Lactic Acid 2.3 H 1.3 Calcium Total Bilirubin AST ALT Alkaline Phosphatase Total Protein Albumin Globulin Albumin/Globulin Ratio Urine Color Urine Clarity Urine pH Ur Specific [place] Urine Protein Urine Glucose (UA) Urine Ketones Urine Occult Blood Urine Nitrite Urine Bilirubin Urine Urobilinogen Ur Leukocyte Esterase Urine RBC Urine WBC Ur Squamous Epith Cells Urine Bacteria Ur Microscopic Review Urine Culture Comments Nasal Adenovirus (PCR) NOT DETECTED Nasal B. parapertussis DNA (PCR) NOT DETECTED Nasal Coronavir 229E PCR NOT DETECTED Nasal Coronavir HKU1 PCR NOT DETECTED Nasal Coronavir NL63 PCR NOT DETECTED Nasal Coronavir OC43 PCR NOT DETECTED Nasal Enterovir/Rhinovir PCR NOT DETECTED Nasal Influenza B PCR NOT DETECTED Nasal Influenza A PCR NOT DETECTED Nasal Parainfluen 1 PCR NOT DETECTED Nasal Parainfluen 2 PCR NOT DETECTED Nasal Parainfluen 3 PCR NOT DETECTED Nasal Parainfluen 4 PCR NOT DETECTED Nasal RSV (PCR) NOT DETECTED Nasal B.pertussis DNA PCR NOT DETECTED Nasal C.pneumoniae (PCR) NOT DETECTED [place] Human Metapneumo PCR NOT DETECTED Nasal M.pneumoniae (PCR) NOT DETECTED Nasal SARS-CoV-2 (PCR) NOT DETECTED - Rads (name of study) Chest XR Relevant Findings:: See rad report (No acute findings on my independent review of imaging.), Other (No acute findings on my independent review of imaging.) CT A/P with contrast Relevant Findings:: See rad report, Other (Please see radiology report, which I agree with on my review of imaging.) PD Medical Decision Making - ED course ED course: This patients presentation is most suggestive of infection such as viral syndrome, UTI, pyelonephritis, among others. Pneumonia possible though less likely clincially. He has benign abdomen, arguing against intra-abdominal abscess, cholecystitis, hepatitis, pancreatitis. Patient does has evidence of urinary retention on exam, which could be secondary to UTI or BPH, and I am requesting Aquino. No back pain or tenderness to suggest cauda equina or spine infection. I am obtaining CXR, CT A/P with contrast, bcx x2, EKG, CBC, chemistry, viral swab, lactate. I am giving fluids, Tylenol and will closely reassess. Patient currently hemodynamically stable. He was borderline febrile on arrival. EKG normal sinus rhythm without acute ischemia or immediately concerning interval prolongation. Right bundle branch block present. CXR no acute findings. CBC with no leukocytosis, with anemia however no recent for comparison and without clear current evidence of bleeding clinically. Macrocytosis present. Thrombocytopenia present, with no recent for comparison. CMP with mild hyponatremia, hypochloremia, creatinine elevated to 1.4, similar to July 2022. Lactate mildly elevated to 2.3. Total bilirubin elevated to 2.1. No AST, ALT, alk phos elevation. Urine with protein, glucose, red blood cells suitable for outpatient follow-up, though no clear infection. Respiratory PCR negative. Giving additional fluids and repeating lactate. Note patient currently has HR 90s, is afebrile, with no leukocytosis, and appears improved after prior treatment. I do not see clear bacterial source of infection at this juncture, and given his well appearance and overall reassuring course, I am holding antibiotics or 30cc/kg fluids currently (which could cause pulmonary edema). Viral source still possible despite negative viral panel. CT is pending. Note no back pain or tenderness, with no focal neurovasuclar deficits. CT A/P: As per read by Dr. 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 I went over all CT results with patient, who states he is feeling well and continues to have no abdominal pain, benign abdominal exam. He has no new concerns. He states AAA and vascular findings are not new. Copy of imaging findings given to patient for follow up. Repeat lactate: normalized, reassuring. After extensive monitoring overnight, patient remains comfortable, afebrile, well appearing. He is ambulatory, tolerating PO. This still seems most consistent with viral syndrome, improving. However, he understands importance of strict return precautions, close follow up, and follow up of work up abnormalities and imaging findings today, along with BP. We also discussed continuation of Aquino and close follow up outpatient for void trial as well. No back pain or tenderness still, arguing strongly against cauda equina or spinal infection such as epidural abscess. No other new concerns. Results of work up today were discussed with the patient. Extensive written instructions given. Patient ambulatory and tolerating PO. Family will drive. Repeat exams and vital signs reassuring. Blood pressure is elevated but suitable for outpatient follow up, with no evidence of hypertensive emergency here clinically. Patient questions answered and plan reviewed. Strong return precautions given. Patient discharged. Departure - Departure Disposition: Home, Self Care Clinical Impression: Malaise, Thrombocytopenia, Urinary retention, Macrocytosis Condition: Good Comments: It was a pleasure taking care of you today. It is important to fully read and understand the below. Please ask us if you have any questions. We obtained extensive testing today, with labs, urine, a chest x-ray, a CT of your abdomen pelvis, and additional testing. Ultimately, you felt improved. We still monitored you overnight out of caution. Though your viral panel is negative here, I do think you may have an infection such as a viral infection (many viruses do not show on tests). We discused together that as we do not see any other clear bacterial infection, we are not giving antibiotics. However, it is VERY IMPORTANT you see a doctor within 2-3 days for reassessment, and that you IMMEDIATELY return here if you feel worse. In addition, please discuss your CT and other lab/XR results obtained here with your primary doctor. Please follow-up on your blood cultures, which will return over the next few days, with your primary doctor. With your primary doctor: please follow up on your blood pressure with your primary doctor, as it was elevated here. Please discuss your CT findings (copy given to you). Please also discuss you had blood and protein in your urine, low platelets, and enlarged red blood cells (macrocytosis). We placed a Aquino as you had urinary retention here. Please have this assessed for removal within 5 days. No tests or assessments are perfect, and your condition could ticket dispenser changer time. If your symptoms change or worsen, it is very important you immediately seek medical care. If you have any new or worsening pain, lightheadedness or passing out, shortness of breath, persistent fever, vomiting, confusion, numbness, weakness, or anything else that concerns you, please immediately seek medical care. If you have been prescribed any medications: please read the drug package inserts on how to properly use the medication and any potential side effects. If you had labs (blood tests) or imaging (CT scan or x-rays) done during your visit: please follow up on the results of these with your primary care doctor, as discussed. In addition, please know the results we received today may be preliminary. Our usual practice is to follow up on tests within a few days of a patient's discharge from the Emergency Department and notify you of any changes. These may lead to changes to your treatment plan. However, the best way to obtain and interpret these test results is through your Primary Care Provider. If you need to update your contact information, please stop by the restaurant front manager and alert the Registration personnel before you leave the Emergency Department. Thank you for the opportunity to participate in your healthcare. We are always here and happy to see you in the future. Forms: PCP List Discharge Date/Time: 03/18/24 06:00
[2024-03-18 00:50] LABS: ALBUMIN 3.8 g/dL (3.2-5.5); ALBUMIN/GLOBULIN RATIO 1.1 (1.0-2.2); BILIRUBIN,TOTAL 2.1 mg/dL (0.2-1.0); CALCIUM 9.4 mg/dL (8.5-10.3); CREATININE 1.4 mg/dL (0.6-1.3); POTASSIUM 3.8 mmol/L (3.5-4.5); TOTAL PROTEIN 7.2 g/dL (6.4-8.9)
[2024-03-18] MEDS ORDERED: iohexoL-300 100 ML VIAL ONE (01:30)
[2024-03-18 01:42] LABS: B. PARAPERTUSSIS- RESP PCR PAN NOT DETECTED; B. PERTUSSIS- RESP PCR PANEL NOT DETECTED; C. PNEUMONIAE- RESP PCR PANEL NOT DETECTED; CORONAVIRUS 229E-RESP PCR NOT DETECTED; CORONAVIRUS HKU1-RESP PCR NOT DETECTED; CORONAVIRUS NL63-RESP PCR NOT DETECTED; CORONAVIRUS OC43-RESP PCR NOT DETECTED; HUMAN METAPNEUMOVIRUS NOT DETECTED; INFLUENZA A- RESP PCR PANEL NOT DETECTED; INFLUENZA B - RESP PCR PANEL NOT DETECTED; M. PNEUMONIAE- RESP PCR PANEL NOT DETECTED; PARAINFLUENZA VIRUS 1 NOT DETECTED; PARAINFLUENZA VIRUS 2 NOT DETECTED; PARAINFLUENZA VIRUS 3 NOT DETECTED; PARAINFLUENZA VIRUS 4 NOT DETECTED; RHINOVIRUS/ENTEROVIRUS NOT DETECTED; RSV- RESP PCR PANEL NOT DETECTED; SARS-CoV-2 -RESP PCR PANEL NOT DETECTED
[2024-03-18] MEDS: iohexoL-300 100 ML VIAL IVP ONE (02:10)
[2024-03-18] MEDS: ACETAMINOPHEN 325 MG TABLET PO STA (02:14)
[2024-03-18] MEDS: SODIUM CHLORIDE 0.9% 500 ML IV ONE (02:16)
[2024-03-18] MEDS: SODIUM CHLORIDE 0.9% 1,000 ML IV STA (02:42)
[2024-03-18 05:21] VITALS: O2SAT 98
[2024-03-18 05:40] VITALS: BP 168/72
--- NOTE | 2024-03-18 08:19 | XRAY Report ---
PROCEDURE: Chest 1V INDICATIONS: weakness TECHNIQUE: One view of the chest was acquired. COMPARISON: 10/08/2016. FINDINGS: Surgical changes and devices: None. Lungs and pleura: No pleural effusions or pneumothorax. Lungs are clear. Mediastinum: Mediastinal contours appear normal. Heart size is normal. Bones and chest wall: No suspicious bony lesions. Overlying soft tissues appear unremarkable. IMPRESSION: No acute cardiopulmonary process. Findings are concordant with preliminary interpretation provided by [facility]. Reviewed by: Adama Harris MD on 03/18/2024 8:18 AM PDT Approved by: Adama Harris MD on 03/18/2024 8:18 AM PDT Station ID: [id number]
--- NOTE | 2024-03-18 08:57 | CT Report ---
PROCEDURE: Abdomen/Pelvis W INDICATIONS: urinary retention, septic work up CONTRAST: OMNI 300, 100ms TECHNIQUE: After the administration of intravenous contrast, a CT scan of the abdomen and pelvis was performed. Images were recorded and evaluated at appropriate window settings. Reformats: coronal and sagittal. F or radiation dose reduction, the following was used: automated exposure control, adjustment of mA and /or kV according to patient size. COMPARISON: None. FINDINGS: Image quality: Diagnostic. Lower chest: Mild cardiomegaly. The lung bases are clear. Liver: No solid mass. The liver surface appears nodular. Gallbladder: Cholelithiasis. Questionable pericholecystic fluid versus ascites. Biliary tree: No intrahepatic or extrahepatic dilation, accounting for age. Spleen: Spleen is enlarged. Pancreas: No pancreatic ductal dilation. Adrenals: No adrenal nodule. Kidneys and ureters: Nonobstructing renal stones bilaterally, measuring up to 8 mm on the right and 9 mm on the left. No hydronephrosis. No renal cystic lesion which requires follow up. No solid mass. M ild left hydroureter without definite cause for obstruction identified. Stomach, bowel and peritoneum: No gastric or small bowel dilation. No abnormal wall thickening. Small perihepatic ascites. Lymph nodes: No central or and retroperitoneal adenopathy. Vessels: Infrarenal abdominal aortic aneurysm measuring 4.9 x 4.5 cm. Internal and external iliac art roni stents in place. Interstitial dilatation of the left iliac arteries measure up to 3.7 cm. Atheros clerotic vascular calcifications are present. Patent portal vein. PELVIS Reproductive organs: Unremarkable. Bladder: Decompressed with Aquino catheter in place. Pelvic lymph nodes: No pelvic adenopathy by size criteria. Surgical clips in the pelvis. Bones: No aggressive osseous abnormality. Degenerative changes of the spine. Other: Small bilateral fat-containing hernias. Small fat-containing umbilical hernia. IMPRESSION: 1.Cholelithiasis. Possible pericholecystic fluid versus ascites. Recommend clinical correlation and c onsider right upper quadrant ultrasound for further evaluation. 2.The liver surface appears nodular, concerning for cirrhosis. Small volume ascites and splenomegaly may be secondary to portal hypertension. 3.Nonobstructing bilateral renal calculi. Mild left hydroureter without definite cause for obstructio n identified. 4.Infrarenal abdominal aortic aneurysm measuring up to 4.9 cm. 5.Bilateral internal and external iliac artery stents. 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 Findings are concordant with preliminary interpretation provided by [facility]. Reviewed by: Raffi Berrios MD on 03/18/2024 8:56 AM PDT Approved by: Raffi Berrios MD on 03/18/2024 8:56 AM PDT Station ID: [id number]
--- NOTE | 2024-03-19 13:54 | ED Physician Documentation ---
ED Addendum - Addendum Addendum: 03/19/24 13:52 I called patient today 03/19/24 at 1:43PM to check in after his recent ER visit. He did not answer, but his spouse did. She states his appetite has now decreased she now thinks there may be blood in his stool, and that today he is feeling worse. This is concerning to me for an acute change that requires evaluation. I requested he return to the ER. Patient's spouse states she recently had back surgery and does not feel able to drive him, so I have requested she contact EMS to have them return patient to the ER. She understands my concerns states she will do so now.
== END 2024-03-18 06:00 | disposition home or self-care (01) ==
LOC: EDUNIT# → ED 00:01
DX: R53.81 Other malaise (principal); D69.6 Thrombocytopenia, unspecified; R33.9 Retention of urine, unspecified; D75.89 Other specified diseases of blood and blood-forming organs; I10 Essential (primary) hypertension; E11.9 Type 2 diabetes mellitus without complications; E78.00 Pure hypercholesterolemia, unspecified; K21.9 Gastro-esophageal reflux disease without esophagitis; Z79.02 Long term (current) use of antithrombotics/antiplatelets; Z79.82 Long term (current) use of aspirin
CPT/HCPCS: 36415; 51702; 71045; 74177; 80053; 81001; 83605; 85025; 87040; 87633; 93005; 99284; A9270; Q9967; 81003; 87086

== ENCOUNTER 2024-03-19 15:48 | Outpatient (CLI) | payer MEDICARE, OTHER | END 2024-03-19 15:49 | disposition critical access hospital (66) | LOC: EMS 15:48 | DX: R53.1 Weakness (principal); R53.83 Other fatigue; R53.81 Other malaise; R06.02 Shortness of breath; K92.1 Melena; R50.9 Fever, unspecified | CPT/HCPCS: A0425; A0427 ==

== ENCOUNTER 2024-03-19 16:25 | Inpatient (IN) | payer MEDICARE, OTHER ==
--- NOTE | 2024-03-19 16:47 | ED Physician Documentation ---
History of Present Illness - Stated complaint Stated Complaint: WEAKNESS - Chief complaint Chief Complaint: General - History obtained from History obtained from: Patient, EMS - Additonal information Additional information: 84-year-old gentleman with history of diabetes, coronary disease, iliac stenting, atrial fibrillation got sick on Saturday (today is . He did suddenly developed shaking chills and since then has had left lower quadrant pain with diarrhea with some blood in it. He denies cough, shortness of breath, or pain otherwise. He saw my partner very early yesterday morning and workup demonstrated a high normal temp at 37.9 with borderline tachycardia is, urinary retention for which she had a Aquino placed, CBC showing a normal white count at 8.6 with hemoglobin of 11.2, low platelet count at 89, chemistries were notable for mild elevation in bilirubin, mild hyponatremia. His urinalysis was bloody but without infection. A [employer] respiratory panel was negative. He had a CT of the abdomen and pelvis which demonstrated cholelithiasis, with pericholecystic fluid versus ascites, some concern for cirrhosis and portal hypertension, nonobstructing renal calculi, and infrarenal AAA measuring 4.9 cm and bilateral iliac stents. He also had a chest x-ray done which was grossly negative. Since then he has worsened with more chills and weakness. Fevers up to 102 at home. PD PAST MEDICAL HISTORY - Past Medical History Past Medical History: Yes Cardiovascular: Hypertension, High cholesterol Respiratory: None Endocrine/Autoimmune: Type 2 diabetes GI: GERD : None HEENT: Chronic hearing loss, Other Psych: None Musculoskeletal: None Derm: Other - Past Surgical History Past Surgical History: Yes Cardiovascular: Coronary stent - Present Medications Home Medications: Ambulatory Orders Medication Instructions Recorded Confirmed Aspirin [Aspirin EC] 81 mg PO DAILY 10/08/16 03/19/24 allopurinoL [Allopurinol] 100 mg PO DAILY 10/08/16 03/19/24 Insulin Glargine [Lantus Solostar] 25 unit SUBQ DAILY #3 pen 10/11/16 03/19/24 Clopidogrel [Plavix] 75 mg PO DAILY 10/04/21 03/19/24 Glimepiride 4 tab PO BID 10/04/21 03/19/24 Metoprolol Tartrate [Lopressor] 50 mg PO DAILY 10/04/21 03/19/24 Furosemide [Lasix] 20 mg PO ONCE 03/18/24 03/19/24 Losartan [Cozaar] 25 mg PO DAILY 03/18/24 03/19/24 Pioglitazone [Actos] 30 mg PO DAILY 03/18/24 03/19/24 Potassium Chloride [Klor-Con 10] 10 meq PO DAILY 03/18/24 03/19/24 Rosuvastatin Calcium 20 mg PO HS 03/18/24 03/19/24 - Allergies Allergies/Adverse Reactions: Allergies Allergy/AdvReac Type Severity Reaction Status Date / Time morphine Allergy Unknown Verified 03/19/24 16:28 - Social History Does the pt smoke?: No Smoking Status: Never smoker Does the pt drink ETOH?: Yes Does the pt have substance abuse?: No - Immunizations Immunizations are current?: Yes - POLST Patient has POLST: No PD ED PE NORMAL - Vitals Vital signs reviewed: Yes - General General: Alert and oriented X 3, Other (He is having rigors and appears mildly ill with tachycardia and tachypnea.) - Neck Neck: Supple, no meningeal sign, No bony TTP - Cardiac Cardiac: No murmur, Other (Irregularly irregular without murmur) - Respiratory Respiratory: No respiratory distress, Clear bilaterally - Abdomen Abdomen: Normal bowel sounds, Soft, Other (Very mild tenderness in the left lower quadrant. No tenderness in the right upper quadrant even noting the above CT findings from yesterday.) - Derm Derm: No rash - Neuro Neuro: Alert and oriented X 3 Results - Vitals Vitals: Vital Signs - 24 hr 03/19/24 03/19/24 03/19/24 16:28 17:12 17:30 Temperature 36.9 C Heart Rate 124 H 106 H 125 H Respiratory 19 24 29 H Rate Blood Pressure 126/80 140/74 H 136/74 H O2 Saturation 99 95 95 Oxygen O2 Source Room air - EKG (time done) 1639 EKG releavant findings:: EKG personally interpreted by author of this note. Relevant findings are: Rate: Rate (enter#) (119) Rhythm: Wide complex tachycardia [place]: Normal Intervals: RBBB Ischemia: Normal ST segments - Labs Labs: Laboratory Tests 03/19/24 03/19/24 03/19/24 16:53 16:53 16:53 WBC 13.1 H RBC 3.22 L Hgb 11.0 L Hct 33.6 L MCV 104.3 H MCH 34.2 H MCHC 32.7 RDW 13.1 Plt Count 88 L MPV 11.3 Neut # (Auto) 12.2 H Lymph # (Auto) 0.3 L [place] # (Auto) 0.5 Eos # (Auto) 0.0 Baso # (Auto) 0.0 Absolute Nucleated RBC 0.00 Nucleated RBC % 0.0 PT INR VBG pH 7.390 VBG pCO2 30.5 L VBG pO2 28.7 VBG HCO3 18.0 L VBG Total CO2 19.0 L VBG O2 Saturation 51.5 L VBG Base Excess -5.8 L Sodium 129 L Potassium 4.0 Chloride 94 L Carbon Dioxide 19 L Anion Gap 16.0 H BUN 31 H Creatinine 2.1 H Estimated GFR (MDRD) 30 L Glucose 191 H Lactic Acid Calcium 9.4 Total Bilirubin 1.9 H AST 82 H ALT 44 Alkaline Phosphatase 73 Total Protein 6.5 Albumin 3.3 Globulin 3.2 Albumin/Globulin Ratio 1.0 03/19/24 03/19/24 16:53 16:59 WBC RBC Hgb Hct MCV MCH MCHC RDW Plt Count MPV Neut # (Auto) Lymph # (Auto) [place] # (Auto) Eos # (Auto) Baso # (Auto) Absolute Nucleated RBC Nucleated RBC % PT 16.8 H INR 1.6 H VBG pH VBG pCO2 VBG pO2 VBG HCO3 VBG Total CO2 VBG O2 Saturation VBG Base Excess Sodium Potassium Chloride Carbon Dioxide Anion Gap BUN Creatinine Estimated GFR (MDRD) Glucose Lactic Acid 7.8 H* Calcium Total Bilirubin AST ALT Alkaline Phosphatase Total Protein Albumin Globulin Albumin/Globulin Ratio - Rads (name of study) Single view chest x-ray demonstrates a left pneumonia new from prior chest x-ray 36 hours ago or Relevant Findings:: Final report received, EMP independent interpretation of test CT of the chest demonstrates left upper lobe consolidation with some reactive lymphadenopathy. Relevant Findings:: Final report received, EMP independent interpretation of test CT of the abdomen pelvis is basically stable with small ascites, bilateral nephroliths and AAA with iliac stent Relevant Findings:: Final report received, EMP independent interpretation of test PD Medical Decision Making - ED course ED course: 84-year-old gentleman presents by ambulance with above history. He does fit septic criteria with fever, tachycardia, tachypnea. He was administered 2 L of fluid here noting that he had had 1 L of fluid prehospital to get him to greater than 30 mL/kg. This is an 84-year-old gentleman with the above medical history who presents with certain concerning signs for sepsis and is found to have a white count today elevated compared to what it was yesterday, probably signs of cirrhosis with a bilirubin of 1.9, and FILIPPO on CKD with severe lactic acidosis. Initially I thought the source might be intra-abdominal given his complaints and mild left lower quadrant tenderness as such he was administered Zosyn, but when I looked at his chest x-ray he has a new and significant left upper lobe consolidation consistent with pneumonia so to this I added azithromycin for atypical coverage. Spoke with Dr. Tiwari for admission at 5:45 PM. We did discuss the cirrhosis which appears stable, he has not been drinking in about a year and has no history of liver problems. - Critical Care Time(min): 45 Time Includes: Direct patient care, Review records, Reassess patient, Document care, Coordinate care, Medical consult, Family consult for tx dec Data interpretation: Labs, Pulse ox Procedures included in critical care time: Peripheral IV Procedures excluded from critical care time: EKG Departure - Departure Disposition: 66 [facility] DC/Xfer Clinical Impression: FILIPPO (acute kidney injury) CAD (coronary artery disease) Qualifiers: Coronary Disease-Associated Artery/Lesion type: unspecified vessel or lesion type [place] vs. transplanted heart: [place] heart Associated angina: without angina Qualified Code(s): I25.10 - Atherosclerotic heart disease of [place] coronary artery without angina pectoris Pneumonia Qualifiers: Pneumonia type: due to unspecified organism Laterality: left Lung location: upper lobe of lung Qualified Code(s): J18.9 - Pneumonia, unspecified organism Afib Qualifiers: Atrial fibrillation type: unspecified Qualified Code(s): I48.91 - Unspecified atrial fibrillation Cirrhosis Qualifiers: Hepatic cirrhosis type: unspecified hepatic cirrhosis Ascites presence: with ascites Qualified Code(s): K74.60 - Unspecified cirrhosis of liver Condition: Critical Forms: PCP List
[2024-03-19] MEDS ORDERED: iohexoL-300 100 ML VIAL ONE (17:04)
[2024-03-19 17:06] LABS: BASOPHILS % (AUTO) 0.2 %; HCT - HEMATOCRIT 33.6 % (42.0-52.0); LYMPHOCYTES # (AUTO) 0.3 10^3/uL (1.5-3.5); LYMPHOCYTES % (AUTO) 2.1 %; MEAN CORPUSCULAR HEMOGLOBIN 34.2 pg (27.0-31.0); MEAN CORPUSCULAR HGB CONC 32.7 g/dL (32.0-36.0); MEAN CORPUSCULAR VOLUME 104.3 fL (80.0-94.0); MEAN PLATELET VOLUME 11.3 fL (7.4-11.4); MONOCYTES # (AUTO) 0.5 10^3/uL (0.0-1.0); MONOCYTES % (AUTO) 3.7 %; NEUTROPHILS # (AUTO) 12.2 10^3/uL (1.5-6.6); NEUTROPHILS % (AUTO) 93.4 %; PLT - PLATELET COUNT 88 10^3/uL (130-450); RED BLOOD COUNT 3.22 10^6/uL (4.70-6.10); RED CELL DISTRIBUTION WIDTH 13.1 % (12.0-15.0); WHITE BLOOD COUNT 13.1 x10^3/uL (4.8-10.8)
[2024-03-19] MEDS: SODIUM CHLORIDE 0.9% 2,721.54 ML IV STA (17:08)
[2024-03-19 17:10] LABS: INR 1.6 (0.8-1.2); PT - PROTHROMBIN TIME 16.8 secs (9.9-12.6)
[2024-03-19] MEDS: LACTATED RINGERS 1,000 ML IV STA (17:10)
[2024-03-19] MEDS: PIPERACILLIN/TAZOBACTAM 3.375 GM in SODIUM CHLORIDE 0.9% MINIBAG 100 ML IV STA (17:11)
[2024-03-19] MEDS: SODIUM CHLORIDE 0.9% 1,000 ML IV STA (17:11)
[2024-03-19 17:12] LABS: VBG BASE EXCESS -5.8 mmol/L (-2 - +2); VBG OXYGEN SATURATION 51.5 % (60-80); VBG PCO2 30.5 mmHg (41-51); VBG PH 7.39 (7.31-7.41); VBG PO2 28.7 mmHg (25-47)
[2024-03-19 17:25] LABS: ALBUMIN 3.3 g/dL (3.2-5.5); BILIRUBIN,TOTAL 1.9 mg/dL (0.2-1.0); CALCIUM 9.4 mg/dL (8.5-10.3); CREATININE 2.1 mg/dL (0.6-1.3); TOTAL PROTEIN 6.5 g/dL (6.4-8.9)
[2024-03-19 17:26] LABS: LACTIC ACID, VENOUS 7.8 mmol/L (0.5-2.2)
--- NOTE | 2024-03-19 17:31 | XRAY Report ---
PROCEDURE: Chest 1V INDICATIONS: Sepsis TECHNIQUE: One view of the chest was acquired. COMPARISON: CXR 03/18/2024. FINDINGS: Surgical changes and devices: None. Lungs and pleura: No pleural effusions or pneumothorax. Left upper lobe consolidation which wasn't p resent on CXR performed yesterday. Mediastinum: Left mediastinal contour is more prominent. Heart size is normal. Bones and chest wall: No suspicious bony lesions. Overlying soft tissues appear unremarkable. IMPRESSION: New left upper lobe consolidation. Suspect pneumonia or aspiration. Prominent left mediastinal contour. This could be due to underlying adenopathy. Reviewed by: Bishnu Mckeon MD on 03/19/2024 5:22 PM PDT Approved by: Bishnu Mckeon MD on 03/19/2024 5:22 PM PDT Station ID: [id number]
--- NOTE | 2024-03-19 17:40 | CT Report ---
PROCEDURE: Abdomen/Pelvis W INDICATIONS: IV only, worse sx, abd pain LLQ pain CONTRAST: 100ml [id number] TECHNIQUE: After the administration of intravenous contrast, a CT scan of the abdomen and pelvis was performed. Images were recorded and evaluated at appropriate window settings. Reformats: coronal and sagittal. F or radiation dose reduction, the following was used: automated exposure control, adjustment of mA and /or kV according to patient size. COMPARISON: CT abdomen and pelvis 03/1002/08/2024. FINDINGS: Image quality: Diagnostic. Lower chest: Mild patchy ground glass opacity. Liver: Subtle hypodensity near the intrahepatic IVC. This could represent perfusion abnormality. Appr eciated on CT performed yesterday. Liver surface appears somewhat nodular. Gallbladder: Small calcified gallstones. Biliary tree: No intrahepatic or extrahepatic dilation, accounting for age. Spleen: Prominent size. Possible small cyst or hemangioma. Pancreas: No pancreatic ductal dilation. No. Pancreatic fluid collection. Adrenals: No adrenal nodule. Kidneys and ureters: No hydronephrosis. Several small gallstones bilaterally. No renal cystic lesion which requires follow up. No solid mass. Stomach, bowel and peritoneum: No gastric or small bowel dilation. No abnormal wall thickening. The a ppendix is not identified. Small volume of ascites is unchanged. No pneumoperitoneum. Lymph nodes: No central or retroperitoneal adenopathy. Vessels: Infrarenal abdominal aortic aneurysm measuring 4.3 cm, (2/103), previously 4.4 cm. Not signi ficantly changed. Aorta is unchanged. 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 Bilateral internal and external iliac artery stents. Patent portal vein. Recannulizat ion of the periumbilical vein. Perisplenic varices. PELVIS Reproductive organs: Unremarkable. Bladder: Mostly decompressed with Aquino catheter. Reimplantation of the left ureter. Pelvic lymph nodes: No pelvic adenopathy by size criteria. Bones: No aggressive osseous abnormality. Other: No significant ventral or inguinal hernia. IMPRESSION: 1. No significant interval change. A bowel obstruction. No pneumoperitoneum. 2. Small volume of ascites is unchanged. Suspect cirrhosis. 3. Small bilateral kidney stones. No hydronephrosis. Reimplantation of the left ureter. 4. Iliac stent graft repair. 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 Reviewed by: Bishnu Mckeon MD on 03/19/2024 5:38 PM PDT Approved by: Bishnu Mckeon MD on 03/19/2024 5:38 PM PDT Station ID: [id number]
[2024-03-19] MEDS ORDERED: SODIUM CHLORIDE FLUSH 0.9% 10 ML SYRINGE IVP PRN (17:50)
[2024-03-19] MEDS ORDERED: ONDANSETRON ODT 4 MG TABLET TL PRN (17:50)
--- NOTE | 2024-03-19 17:50 | HISTORY & PHYSICAL EXAMINATION ---
Chief Complaint - Chief Complaint Chief Complaint: fatigue, acute on chronic sob, fever History of Present Illness - Admitted From Admitted From:: home - History Obtained From Records Reviewed: Dimas Abreu History obtained from: Dr. Son Exam Limitations: none - History of Present Illness HPI Comment/Other: This is an 84-year-old white male who has a past medical history of irritable bowel syndrome and intermittent diarrhea, type 2 diabetes mellitus, hypertension, peripheral vascular disease, history of prostate cancer, and a history of gout that began having fever, shortness of breath, generalized weakness/mylagias and headache on 03/17. No cough. No shortness of breath. He came to the emergency room ~00:10 March 18 and viral panel was negative for respiratory disease, white cell count was normal, and lactic acid was mildly elevated at 2.3 but came down to 1.3 with fluids. UA was negative, and CT of the abdomen was done because of the diarrhea and showed small amount of ascites which is a new diagnosis for him. His AAA was unchanged and CXR negative. Since he seemed to have resolved his acute symptomatology, he was sent home after an overnight stay in the ER. He returns at ~16:30 today the request of the ER provider. The ER provider checked up on him today via phone call. And the answered the phone to say that has been was worse today. He now had a fever to 102. He felt palpitations and tachycardia. So he was asked to come back to the emergency room. His heart rate was 120. Respirations rate were 29. White cell count was normal yesterday and now elevated today. Lactic acid was 7.8 and he had new acute kidney injury. A chest x-ray that was negative yesterday now showed lobar left upper lobe infiltrate. Repeat abdomen was done because of left lower quadrant achiness and continues to show the same ascites. This gentleman has a history of abdominal aortic aneurysm and it is unchanged in size. I discussed the case with the emergency room provider. I do feel that the patient has pneumonia. The diarrhea may or may not be a new problem considering his irritable bowel syndrome history. At times diarrhea is associated with mycoplasma pneumonia but this patient's chest x-ray looks like a simple lobar pneumonia and not mycoplasma. He has received an initial dose of Zosyn in the emergency room with azithromycin. He was given Zosyn because I thought that there may be a abdominal component to his sepsis criteria. ROS: He is usually followed by [facility]. There is no MD at that clinic so he sees whichever provider is in the clinic. In the past he is seeing Aye Acosta He has also seen Reyna vital. The fever is an acute problem. He does not have indolent fevers, weight loss, weight gain. Does have myalgias since yesterday. Intermittent rigors. describes him as an gentleman who is very sedentary. Does not really exercise. But is able to take care of himself with regards to feeding, dressing, driving, paying bills. Chronic hearing loss and chronic vision loss but no dysphagia, dysarthria Dyspnea on exertion that is getting progressively worse over the last 6 months. Usually walking to the mailbox and back but in the last few months that is getting worse. But no history of COPD or asthma or interstitial pulmonary fibrosis. No cough. No cough phlegm production. He is followed by cardiology at [facility]. He has had a recent change in providers and his cannot remember the name of the new provider. Intermittent diarrhea. Ongoing for several years. Colonoscopy was negative For colitis. He did have blood in his stool this morning for the first time. Status post seeds for prostate cancer at [place]. He is left with occasional urgency, frequency, and very rarely incontinence. With this episode urine has turned brown but no foul-smelling urine. No urgency, frequency, dysuria. Usually does not have problems with joint pain. However his back is killing him today. Lumbar area. No radiating pain down the legs or circling around. No history of depression, anxiety. Neuro history is negative for memory loss, seizures. He has been getting more unsteady on his feet. Has been ongoing for several months now. no history of syncope. History - Past Medical History Cardiovascular: reports: Hypertension, High cholesterol, Atrial fibrillation ( right atrial enlargement), Other ( Renal artery stenosis, aortic aneurysm) Respiratory: reports: Shortness of breath ( Progressive for the last few month s) Neuro: reports: None Endocrine/Autoimmune: reports: Type 2 diabetes GI: reports: GERD, Colon polyps, Chronic diarrhea : reports: Benign prostate hypertrophy ( with a history of prostate cancer.), Renal insuffiency, Other (hx of prostate ca) HEENT: reports: Chronic hearing loss, Other Psych: reports: None Musculoskeletal: reports: Osteoarthritis, Gout Derm: reports: Other ( Spongiotic psoriasiform dermatitis) MRSA Hx?: No - Past Surgical History General: reports: Colonoscopy (08/2019 w [facility]>angioectasia of cecum,radiation prostotis, hemorrhoids, poly) Ortho: reports: Other ( elbow repair) /TAX ASSOCIATE: reports: Other ( ureteral resection, ureteral stone removal, prostate cancer radiation 2004) Cardiovascular: reports: Coronary stent, Other ( left iliac stent) - Family & Social History Family History Comment/Other: Father age 84 of an MS. Was a smoker. Mother had breast cancer and is . 1 brother at age 72 of coronary artery disease, Had aortic valve repair. Needed to have it redone and with the second attempt. 1 sister is approximately 86 and has survived breast c ancer and is alive and healthy. 3 sons are completely healthy Living arrangement: At home Living Situation: With spouse/s.o. Social History Notes: Former smoker. Half a pack per day starting in 8. Quit in 1962. No history of alcohol abuse. However he use to drink 1-2 glass of wine a day. very rarely would he drink cocktail on top of that. He stopped drinking completely 8 months ago because his put her foot down. She strongly feels that with his cardiac medications and diabetes he should not be using alcohol at all. He was born in [place]. Moved to [place] for work and after his first marriage. Met his second and he and his both worked for [employer] in [employer]. They are retired to the [place] area because that is where her family was from. They have been living on [address] [facility] for several decades now. 2 of their combined 5 children live nearby in [facility]. Within their own home but are completely independent. - Substance History Use: Uses substance without health or social issues: NONE Abuse: Recurrent use of substance despite neg consequences: NONE Dependence: Experiences withdrawal or developed tolerances: NONE - POLST Patient has POLST: No POLST Status: DNR Meds/Allgy - Home Medications Home Medications: Ambulatory Orders Medication Instructions Recorded Confirmed Aspirin [Aspirin EC] 81 mg PO DAILY 10/08/16 03/19/24 allopurinoL [Allopurinol] 100 mg PO DAILY 10/08/16 03/19/24 Insulin Glargine [Lantus Solostar] 25 unit SUBQ DAILY #3 pen 10/11/16 03/19/24 Clopidogrel [Plavix] 75 mg PO DAILY 10/04/21 03/19/24 Glimepiride 4 tab PO BID 10/04/21 03/19/24 Metoprolol Tartrate [Lopressor] 50 mg PO DAILY 10/04/21 03/19/24 Furosemide [Lasix] 20 mg PO ONCE 03/18/24 03/19/24 Losartan [Cozaar] 25 mg PO DAILY 03/18/24 03/19/24 Pioglitazone [Actos] 30 mg PO DAILY 03/18/24 03/19/24 Potassium Chloride [Klor-Con 10] 10 meq PO DAILY 03/18/24 03/19/24 Rosuvastatin Calcium 20 mg PO HS 03/18/24 03/19/24 - Allergies Allergies/Adverse Reactions: Allergies Allergy/AdvReac Type Severity Reaction Status Date / Time morphine Allergy Unknown Verified 03/19/24 16:28 Prior Level of Functionality: Completely independent with activities of daily living. Does not use any durable medical goods. Can still drive. Pays the bills. The main thing they are noting is that he is more more dyspneic over the last few months and cannot make it to the mailbox and back anymore. Exam - Vital Signs Reviewed Vital Signs: Yes Vital Signs: Vital Signs x48h Temp Pulse Resp BP Pulse Ox 03/19/24 17:30 125 H 29 H 136/74 H 95 03/19/24 17:12 106 H 24 140/74 H 95 03/19/24 16:28 36.9 C 124 H 19 126/80 99 - Physical Exam General Appearance: positive: Alert, Moderate distress (Shivering, cold, just wants a blanket" my back is killing me"), Other ( disheveled white male, unshaven, looks very fatigued) Eyes Bilateral: positive: PERRL, EOMI ENT: positive: Dry mucous membranes, Other ( mildly to moderately deaf) Neck: positive: No JVD. negative: Stiff neck Respiratory: positive: Other ( he had tachypnea fast shallow breathing in the ER to 29. Right now he is 20.). negative: Wheezes, Rales, Rhonchi Cardiovascular: positive: Regular rate & rhythm, Tachycardia, Systolic murmur Peripheral Pulses: positive: 1+ Abdomen: positive: Non-tender, No organomegaly, Nml bowel sounds, No distention Skin: positive: Warm, Dry, Pallor Extremities: positive: Full ROM, No pedal edema ( trace edema around the ankles but not severe), Pedal edema Neurologic/Psychiatric: positive: Oriented x3, CN's nml (2-12), Motor nml Sepsis Event Note (H) - Evaluation Current Stage of Sepsis: Sepsis Possible source of Sepsis: positive: Pulmonary - Sepsis Criteria Sepsis Criteria: Recorded Temperature greater than 38.3C or Less than 36C, Recorded Heart Rate greater than 90 bpm, Recorded Respiratory Rate greater than 20, WBC count greater than 12,000 or less than 4000, Metabolic: lactate > 2 mmo l/L Conclusion/Plan - Problem List (1) Sepsis Conclusion/Plan: Criteria met include a white cell count of over 13, lobar pneumonia on radiology imaging, tachycardia to 125, respiratory rate to 29, and a lactic acid of 7.3. Plan: Rocephin and azithromycin. Although I understand why Zosyn was used in the ER, this patient has community-acquired pneumonia and no belly source from what I can see. I will adjust antibiotics on the basis of culture results. Repeat lactic acid in 3 hours. I did wonder if lactic acidosis could be due to liver disease since he appears to have new ascites. I also wonder about medi cations but he is not on metformin. He could also be dehydrated and that could be contributing to lactic acidosis in addition to sepsis. Qualifiers: Sepsis type: sepsis due to unspecified organism Sepsis acute organ dysfunction status: without acute organ dysfunction Qualified Code(s): A41.9 - Sepsis, unspecified organism (2) Pneumonia Conclusion/Plan: Stated in problem #1, Rocephin and azithromycin. Since his chest x-ray does not look like mycoplasma on exam, I will hold off on titers. Minimal cough, no phlegm production so will not be ordering sputum culture. I will review blood cultures when they are ready. Qualifiers: Pneumonia type: due to unspecified organism Laterality: left Lung l ocation: upper lobe of lung Qualified Code(s): J18.9 - Pneumonia, unspecified organism (3) Atrial fibrillation with RVR Conclusion/Plan: Patient is on a beta-charlee. That will be resumed since his blood pressure is elevated enough to be able to tolerate rate control. Anticoagulation is with Plavix and not with a DOAC or Coumadin. I will contact his primary care provider, [facility], to verify. (4) FILIPPO (acute kidney injury) Conclusion/Plan: Baseline creatinine is 1.4-1.6. He is over 2. Most likely due to lack of p.o. intake from his infection. this in turn has caused dehydration. Urine is also brown right now. Bili is not high enough to cause hyperbilirubinemia. I will check for hemolysis. Plan: 1 L of normal saline and then reassess creatinine in the morning Reticulocyte count and anemia panel in the morning (5) Controlled type 2 diabetes mellitus without complication, without long-term current use of insulin Conclusion/Plan: He is followed by [facility]. He used to be seen by Josh Salgado, then switched his care to our local [facility] clinics and then switched over his care to [facility]. From what I can see in the chart his last A1c with the clinics was 6.8% in 2018. Plan: I will Check A1c in the morning Start Lantus 10 units at night and I will order Sliding scale insulin before each meal For choice carb controlled diet will be ordered by me (6) Hypertension Conclusion/Plan: I am resuming his beta-charlee at Lopressor 25 mg p.o. twice daily. I hope to avoid rebound tachycardia and want to control his atrial fibrillation rate. But the Lopressor will also help control his blood pressure. He is on Cozaar 25 mg a day and that will be resumed as well. Both of these medications have holding parameters written by me with holding if systolic less than 110 or heart rate less than 60. Qualifiers: Hypertension type: primary hypertension Qualified Code(s): I10 - Essential (primary) hypertension (7) Cirrhosis Conclusion/Plan: This gentleman does not have a history of alcoholism. No history of withdrawal. Medical record states he drinks 1-2 drinks a day. strength was 8 months ago. The ascites is new. CT has already been done so I do not feel it can need to do an ultrasound of his liver. I may check hepatitis panel to check B and C status. Qualifiers: Hepatic cirrhosis type: unspecified hepatic cirrhosis Ascites presence: with ascites Qualified Code(s): K74.60 - Unspecified cirrhosis of liver; R18.8 - Other ascites (8) Bright red blood per rectum Conclusion/Plan: Reported once by his . This was with one of his bowel movements today. This gentleman has radiation proctitis by history. I do not think he has infectious diarrhea since he has no abdominal pain. Stool was checked for C. difficile and negative. (9) ERVIN (dyspnea on exertion) Conclusion/Plan: no history of congestive heart failure. No history of orthopnea or edema. The dyspnea has been gradually worsening and progressive over the last 6 months but no cough, phlegm production. He is currently in A-fib with RVR which could give him temporary acute systolic CHF but his and he are adamant there is been going on for a lot longer. Unfortunately he cannot remember the name of his new electronic warfare specialist [facility] and they will go home and get that name and bring it to me for tomorrow. I will give that office a call. My current plan is Order A echocardiogram. Will also check venous Dopplers of the legs. He is Homans negative, no edema, but I will check for DVT. (10) Do not resuscitate status Conclusion/Plan: they think that it is in their words but they are not sure. While he does want treatment with antibiotics, surgery, blood transfusions, etc., he does not want to be resuscitated if his heart stops or he stops breathing. No chest compression. - Lab Results Lab results reviewed: Yes Fish Bones: 03/19/24 16:53 03/19/24 16:53 - Diagnostic Imaging Results Diagnostic Imaging Results: positive: Final report reviewed Diagnostic Imaging Results Comments: Chest x-ray today was compared to yesterday's chest x-ray. There is a new left upper lobe consolidation. Abdomen/pelvis CT was done because of left lower quadrant aching and history of prostate cancer. He has a subtle hypodensity near the intrahepatic IVC. His gallbladder has small calcified gallstones. Pancreas appears normal. Kidneys and ureters appear normal. Stomach, bowel and peritoneum are without acute pathology. He has an infrarenal abdominal aortic aneurysm measuring 4.2 cm and without significant change from CT of the abdomen of February 07 and March 10, 2024. 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 He has bilateral internal and external iliac artery stents. Perisplenic varices. He has a decompressed bladder from Aquino catheter and reimplantation of the left ureter. Small bilateral kidney stones. Chest CT has left upper lobe consolidation. Subcentimeter thyroid nodules. Central airways clear. Heart size normal. Moderate coronary artery calcifications. No pleural effusion. No mediastinal lymphadenopathy., - EKG Results EKG Interpreted Independently: No EKG Comparison: Changed from prior EKG (with new RVR) Core Measures - Anticipated LOS I expect patient to be DC'd or transferred within 96 hours.: Yes - DVT/VTE - Prophylaxis VTE/DVT Prophylaxis med ordered at admit?: Yes
--- NOTE | 2024-03-19 17:52 | CT Report ---
PROCEDURE: Chest W INDICATIONS: PNA CONTRAST: 100ml [id number] TECHNIQUE: After the administration of intravenous contrast, a CT scan of the chest was performed. Images were recorded and evaluated at appropriate window settings. Reformats: axial MIP of the chest, coronal and sagittal. For radiation dose reduction, the following was used: automated exposure control, adjustme nt of mA and/or kV according to patient size. COMPARISON: CXR earlier today, 03/18/2024. FINDINGS: Image quality: Diagnostic. Chest wall and lower neck: No thyroid nodule which requires sonographic follow up. Subcentimeter thyr oid nodules. No breast mass. No axillary or supraclavicular adenopathy by size. Lungs and pleura: Left upper lobe consolidation. Dependent atelectasis bilaterally. The central airwa ys are clear. No pleural effusions. No pneumothorax. No suspicious pulmonary nodules which require fo llow up. Mediastinum: Heart size is normal. Moderate coronary artery calcifications. No pericardial effusion. No large vessel abnormality. No mediastinal adenopathy by size criteria. Left anterior mediastinal ly mph node measuring 0.8 cm. Prevascular node measuring 0.6 cm. Precarinal lymph node measuring 0.8 cm . Bones: No aggressive osseous abnormality. Upper Abdomen: Please see separately dictated same-day CT abdomen and pelvis. Small volume of ascites . IMPRESSION: 1. Left upper lobe consolidation most consistent with pneumonia. 2. A few small reactive lymph nodes. Reviewed by: Bishnu Mckeon MD on 03/19/2024 5:51 PM PDT Approved by: Bishnu Mckeon MD on 03/19/2024 5:51 PM PDT Station ID: [id number]
[2024-03-19] MEDS: AZITHROMYCIN INJ 500 MG in SODIUM CHLORIDE 0.9% 250 ML IV STA (17:53)
[2024-03-19] MEDS: SODIUM CHLORIDE 0.9% 1,000 ML IV SCH (18:20)
[2024-03-19] MEDS: cefTRIAXone 1 GM in SODIUM CHLORIDE 0.9% MINIBAG 100 ML IV STA (20:19)
[2024-03-19] MEDS: oxyCODONE 5 MG TABLET PO PRN (20:42)
[2024-03-19] MEDS: METOPROLOL TARTRATE 25 MG TABLET PO SCH (20:47)
[2024-03-19] MEDS: INSULIN LISPRO 300 UNIT/3 ML PEN SUBQ SCH (20:49)
[2024-03-19] MEDS: INSULIN GLARGINE-YFGN 300 UNIT/3 ML PEN SUBQ SCH (20:49)
[2024-03-19 21:01] LABS: LACTIC ACID, VENOUS 3.7 mmol/L (0.5-2.2)
--- NOTE | 2024-03-19 21:37 | Ultrasound Report ---
PROCEDURE: Duplex Ext Veins Bilateral INDICATIONS: Reddy Son MD TECHNIQUE: Real-time imaging, as well as color and pulse Doppler interrogation, were performed of the deep veins of both legs from the inguinal ligament to the popliteal fossa. Attempted visualization of the calf veins was performed. COMPARISON: None FINDINGS: The deep veins are normally compressible, and free of intraluminal thrombus. Color and pu lse Doppler demonstrate normal phasic intravascular flow. There is normal augmentation response to d istal compression maneuver. IMPRESSION: No deep venous thrombosis of the visualized lower extremities. Reviewed by: Ellis Moser MD on 03/19/2024 9:36 PM PDT Approved by: Ellis Moser MD on 03/19/2024 9:36 PM PDT Station ID: [id number]
[2024-03-19 23:37] LABS: BILIRUBIN,URINE NEGATIVE (NEGATIVE); GLUCOSE, URINE (UA) NEGATIVE (NEGATIVE); KETONES,URINE (UA) TRACE mg/dL (NEGATIVE); LEUKOCYTE ESTERASE, URINE NEGATIVE (NEGATIVE); NITRITE,URINE NEGATIVE (NEGATIVE); OCCULT BLOOD,URINE LARGE (NEGATIVE); PH,URINE 5.5 PH (5.0-7.5); PROTEIN,URINE 100 mg/dL (NEGATIVE); UROBILINOGEN,URINE 1 (NORMAL) E.U./dL (NORMAL)
[2024-03-19 23:45] LABS: CLARITY,URINE HAZY (CLEAR)
[2024-03-19 23:46] LABS: BACTERIA,URINE Few /HPF (None Seen); CASTS, URINE 0-2 Course Granular /LPF; SQUAMOUS EPITHELIAL CELL,UR FEW Squamous (<= Few); WBC,URINE 0-3 /HPF (0-3)
--- NOTE | 2024-03-20 00:38 | PROVIDER PROGRESS NOTE ---
Meat Scrubber Note - Meat Scrubber Note Meat Scrubber Note: called by RN stating "Pt admitted for severe sepsis with pneumonia. Pt having a difficult time sleeping and feels very anxious, can I please have something for anxiety and also and order for tylenol as needed. Thank you!" Tylenol ordered one time only due to abnormal lft and melatonin ordered for tonight
[2024-03-20] MEDS: SODIUM CHLORIDE FLUSH 0.9% 10 ML SYRINGE IVP SCH (01:00)
[2024-03-20] MEDS: ACETAMINOPHEN 500 MG TABLET PO ONE (01:02)
[2024-03-20] MEDS: MELATONIN 3 MG TABLET PO ONE (01:02)
[2024-03-20 05:36] LABS: BASOPHILS % (AUTO) 0.1 %; HCT - HEMATOCRIT 29.7 % (42.0-52.0); HGB - HEMOGLOBIN 9.7 g/dL (14.0-18.0); LYMPHOCYTES # (AUTO) 0.3 10^3/uL (1.5-3.5); LYMPHOCYTES % (AUTO) 3.9 %; MEAN CORPUSCULAR HEMOGLOBIN 33.9 pg (27.0-31.0); MEAN CORPUSCULAR HGB CONC 32.7 g/dL (32.0-36.0); MEAN CORPUSCULAR VOLUME 103.8 fL (80.0-94.0); MEAN PLATELET VOLUME 10.8 fL (7.4-11.4); MONOCYTES # (AUTO) 0.3 10^3/uL (0.0-1.0); MONOCYTES % (AUTO) 4.4 %; NEUTROPHILS % (AUTO) 91.1 %; PLT - PLATELET COUNT 85 10^3/uL (130-450); RED BLOOD COUNT 2.86 10^6/uL (4.70-6.10); WHITE BLOOD COUNT 7.7 x10^3/uL (4.8-10.8)
[2024-03-20 06:05] LABS: CALCIUM 8.3 mg/dL (8.5-10.3); CREATININE 1.9 mg/dL (0.6-1.3); POTASSIUM 3.5 mmol/L (3.5-4.5)
[2024-03-20] MEDS ORDERED: GLUCAGON 1 MG/ML VIAL ONE (07:27)
[2024-03-20] MEDS: DEXTROSE 10% 250 ML IV STA (07:48)
[2024-03-20 08:04] LABS: ESTIMATED AVERAGE GLUCOSE 174 mg/dL (70-100); HEMOGLOBIN A1c% 7.7 % (4.27-6.07)
[2024-03-20] MEDS: LOSARTAN 50 MG TABLET PO SCH (08:11)
[2024-03-20] MEDS: SACCHAROMYCES BOULARDII 250 MG CAPSULE PO SCH (08:11)
[2024-03-20] MEDS: CLOPIDOGREL 75 MG TABLET PO SCH (08:12)
[2024-03-20] MEDS: cefTRIAXone 1 GM in SODIUM CHLORIDE 0.9% MINIBAG 100 ML IV SCH (08:12)
[2024-03-20] MEDS: ENOXAPARIN 40 MG/0.4 ML SYRINGE SUBQ SCH (08:17)
[2024-03-20] MEDS: AZITHROMYCIN INJ 500 MG in SODIUM CHLORIDE 0.9% 250 ML IV SCH (09:13)
[2024-03-20 09:24] LABS: ABSOLUTE RETICS # AUTO 0.063 10^6/uL (0.020-0.110); RED BLOOD COUNT 3.27 10^6/uL (4.70-6.10); RETICULOCYTE COUNT % (AUTO) 1.94 % (0.5-2.3)
[2024-03-20 09:48] LABS: % IRON SATURATION 9 % (20-50); IRON 23 ug/dL (50-212); TOTAL IRON BINDING CAPACITY 266 ug/dL (250-450); TRANSFERRIN 190 mg/dL (203-362)
[2024-03-20] MEDS: LORazepam 2 MG/ML VIAL IVP PRN (11:30)
--- NOTE | 2024-03-20 11:34 | PHARMACY PROGRESS NOTE ---
- Best Possible Medication History Admit Date and Time: 03/19/24 1750 Processed by: Pharmacy Medication History completed: Yes Patient Interview: Completed Secondary Source(s): Physician records (PT [facility] USING [employer] AND [employer] RECORDS), Insurance records As the person ultimately responsible for medication therapy, providers are able to order a medication from an existing home medication list in [facility] via the "Reconcile Routine" prior to Confirmation of that medication by academic support director. Such practice is discouraged except when the physician, in their clinical judgment, deems that a medical need exists for a medication without regard to previous use.
--- NOTE | 2024-03-20 14:40 | PROVIDER PROGRESS NOTE ---
Subjective - Prog Note Date Prog Note Date: 03/20/24 Prog Note Time: 14:37 - Subjective Subjective: Complains of diffuse fatigue. He states that he can stop trembling. Can't figure out why it is happening. He continues to complain of Shortness of breath at rest. The orthopnea has improved from yesterday to today but he still not comfortable laying flat. Had a terrible night sleeping and asked for sleep aid last night. Yesterday his back was killing him and that back pain is gone. He has also no appetite and does not want to eat. His fever has resolved. The cough is still present. Nonproductive. But it is less severe than it was yesterday. Cough is worse when he lays down. Nursing does not describe bright red blood per rectum. He had that yesterday. He did get up to urinate but he says he is not urinating very much. When I looked at his urine it was very orange and concentrated. Current Medications - Current Medications Current Medications: Active Medications Clopidogrel Bisulfate (Clopidogrel 75 Mg Tablet) 75 mg PO DAILY [facility] Last Admin: 03/20/24 08:12 Dose: 75 mg Enoxaparin Sodium (Enoxaparin 40 Mg/0.4 Ml Syringe) 40 mg SUBQ DAILY [facility] Last Admin: 03/20/24 08:17 Dose: 40 mg Azithromycin 500 mg/ Sodium (Chloride) 250 mls @ 250 mls/hr IV DAILY [facility] Stop: 03/22/24 09:59 Last Admin: 03/20/24 09:13 Dose: 250 mls/hr Ceftriaxone Sodium 1 gm/ (Sodium Chloride) 100 mls @ 200 mls/hr IV DAILY [facility] Stop: 03/24/24 09:29 Last Admin: 03/20/24 08:12 Dose: 200 mls/hr Insulin Glargine-yfgn (Insulin Glargine-Yfgn 300 Unit/3 Ml Pen) 10 unit SUBQ QPM [facility] Last Admin: 03/19/24 20:49 Dose: 10 unit Insulin Human Lispro (Insulin Lispro 300 Unit/3 Ml Pen) 1 - 5 unit SUBQ 0800,1200,1700,2100 [facility]; Protocol Last Admin: 03/20/24 11:10 Dose: Not Given Lorazepam (Lorazepam 2 Mg/Ml Vial) 0.5 mg IVP Q2H PRN PRN Reason: Anxiety Last Admin: 03/20/24 11:30 Dose: 0.5 mg Losartan Potassium (Losartan 50 Mg Tablet) 25 mg PO DAILY [facility] Last Admin: 03/20/24 08:11 Dose: 25 mg Metoprolol Tartrate (Metoprolol Tartrate 25 Mg Tablet) 25 mg PO BID [facility] Last Admin: 03/20/24 08:11 Dose: 25 mg Ondansetron HCl (Ondansetron Odt 4 Mg Tablet) 4 mg TL Q6HR PRN PRN Reason: Nausea / Vomiting Ondansetron HCl (Ondansetron 4 Mg/2 Ml Vial) 4 mg IVP Q6HR PRN PRN Reason: Nausea / Vomiting Oxycodone HCl (Oxycodone 5 Mg Tablet) 5 mg PO Q4HR PRN PRN Reason: Pain 5 to 7 Last Admin: 03/20/24 00:23 Dose: 5 mg Saccharomyces Boulardii (Saccharomyces Boulardii 250 Mg Capsule) 250 mg PO BIDWM [facility] Last Admin: 03/20/24 08:11 Dose: 250 mg Sodium Chloride (Sodium Chloride Flush 0.9% 10 Ml Syringe) 10 ml IVP PRN PRN PRN Reason: NEEDED PER PROVIDER ORDERS Sodium Chloride (Sodium Chloride Flush 0.9% 10 Ml Syringe) 10 ml IVP 0100,0900,1700 [facility] Last Admin: 03/20/24 09:44 Dose: Not Given Clopidogrel [Plavix] 75 mg PO DAILY 10/04/21 Glimepiride 4 tab PO BID 10/04/21 Pioglitazone [Actos] 30 mg PO DAILY 03/18/24 Potassium Chloride [Klor-Con 10] 10 meq PO DAILY 03/18/24 Rosuvastatin Calcium 20 mg PO HS 03/18/24 Furosemide [Lasix] 1 tab PO DAILY 03/20/24 Objective - Vital Signs/Intake & Output Reviewed Vital Signs: Yes Vital Signs: Vital Signs x48h Temp Pulse Resp BP BP Pulse Ox O2 Flow Rate 03/20/24 12:47 37.1 C 98 20 136/73 H 92 03/20/24 10:22 92 03/20/24 08:11 127/72 03/20/24 07:34 36.9 C 92 20 127/72 96 2 Intake & Output: Intake & Output 03/17/24 03/18/24 03/19/2430/24 23:59 23:59 23:59 23:59 Intake Total 2550 1930 Output Total 600 825 Balance 1950 1105 - Objective General Appearance: positive: Other ( While he is alert to person, place, time and situation he is very fatigued. Can barely roll over in bed. disheveled.) Eyes Bilateral: positive: PERRL, No scleral icterus ( Does have scleral edema) ENT: positive: Dry mucous membranes ( dry lips) Neck: positive: No JVD. negative: Stiff neck Respiratory: positive: Rales, Other Abdomen: positive: Non-tender, No organomegaly, Nml bowel sounds, No distention Skin: positive: Warm, Dry, Pallor Extremities: positive: Full ROM, Pedal edema (trace around ankles) Neurologic/Psychiatric: positive: Oriented x3, CN's nml (2-12). negative: Motor nml (generalized weakness that is 2 person assist, intermittent tremulousness that comes and goes. wants his blankets covering him up) - Lab Results Fish Bones: 03/20/24 05:19 03/20/24 05:19 Other Labs: Lab Results x24hrs 03/20/24 03/20/24 03/20/24 Range/Units 11:02 09:10 09:10 WBC (4.8-10.8) x10^3/uL RBC 3.27 L (4.70-6.10) 10^6/uL Hgb (14.0-18.0) g/dL Hct (42.0-52.0) % MCV (80.0-94.0) fL MCH (27.0-31.0) pg MCHC (32.0-36.0) g/dL RDW (12.0-15.0) % Plt Count (130-450) 10^3/uL MPV (7.4-11.4) fL Reticulocyte % (Auto) 1.94 (0.5-2.3) % Neut # (Auto) (1.5-6.6) 10^3/uL Lymph # (Auto) (1.5-3.5) 10^3/uL Nash # (Auto) (0.0-1.0) 10^3/uL Eos # (Auto) (0.0-0.7) 10^3/uL Baso # (Auto) (0.0-0.1) 10^3/uL Absolute Nucleated RBC x10^3/uL Nucleated RBC % /100WBC Absolute Retic 0.063 (0.020-0.110) 10^6/uL PT (9.9-12.6) secs INR (0.8-1.2) VBG pH (7.31-7.41) VBG pCO2 (41-51) mmHg VBG pO2 (25-47) mmHg VBG HCO3 (23-28) mmol/L VBG Total CO2 (24-29) mmol/L VBG O2 Saturation (60-80) % VBG Base Excess (-2 - +2) mmol/L Sodium (135-145) mmol/L Potassium (3.5-4.5) mmol/L Chloride (101-111) mmol/L Carbon Dioxide (21-32) mmol/L Anion Gap (6-13) BUN (6-20) mg/dL Creatinine (0.6-1.3) mg/dL Estimated GFR (MDRD) (>89) Glucose (74-104) mg/dL POC Whole Bld Glucose 139 H (70 - 100) mg/dL Estimat Average Glucose (70-100) mg/dL Hemoglobin A1c % (4.27-6.07) % Lactic Acid (0.5-2.2) mmol/L Calcium (8.5-10.3) mg/dL Iron 23 L (50-212) ug/dL TIBC 266 (250-450) ug/dL % Saturation 9 L (20-50) % Transferrin 190 L (203-362) mg/dL Total Bilirubin (0.2-1.0) mg/dL AST (10-42) IU/L ALT (10-60) IU/L Alkaline Phosphatase (42-121) IU/L Lactate Dehydrogenase (140-271) IU/L Total Protein (6.4-8.9) g/dL Albumin (3.2-5.5) g/dL Globulin (2.1-4.2) g/dL Albumin/Globulin Ratio (1.0-2.2) Vitamin B12 373 (180-914) pg/mL Urine Color Urine Clarity (CLEAR) Urine pH (5.0-7.5) PH Ur Specific Stollings (1.002-1.030) Urine Protein (NEGATIVE) mg/dL Urine Glucose (UA) (NEGATIVE) mg/dL Urine Ketones (NEGATIVE) mg/dL Urine Occult Blood (NEGATIVE) Urine Nitrite (NEGATIVE) Urine Bilirubin (NEGATIVE) Urine Urobilinogen (NORMAL) E.U./dL Ur Leukocyte Esterase (NEGATIVE) Urine RBC (0-5) /HPF Urine WBC (0-3) /HPF Ur Squamous Epith Cells (<= Few) Urine Bacteria (None Seen) /HPF Urine Casts /LPF Urine Culture Comments 03/20/24 03/20/24 03/20/24 Range/Units 08:58 07:26 05:19 WBC (4.8-10.8) x10^3/uL RBC (4.70-6.10) 10^6/uL Hgb (14.0-18.0) g/dL Hct (42.0-52.0) % MCV (80.0-94.0) fL MCH (27.0-31.0) pg MCHC (32.0-36.0) g/dL RDW (12.0-15.0) % Plt Count (130-450) 10^3/uL MPV (7.4-11.4) fL Reticulocyte % (Auto) (0.5-2.3) % Neut # (Auto) (1.5-6.6) 10^3/uL Lymph # (Auto) (1.5-3.5) 10^3/uL Nash # (Auto) (0.0-1.0) 10^3/uL Eos # (Auto) (0.0-0.7) 10^3/uL Baso # (Auto) (0.0-0.1) 10^3/uL Absolute Nucleated RBC x10^3/uL Nucleated RBC % /100WBC Absolute Retic (0.020-0.110) 10^6/uL PT (9.9-12.6) secs INR (0.8-1.2) VBG pH (7.31-7.41) VBG pCO2 (41-51) mmHg VBG pO2 (25-47) mmHg VBG HCO3 (23-28) mmol/L VBG Total CO2 (24-29) mmol/L VBG O2 Saturation (60-80) % VBG Base Excess (-2 - +2) mmol/L Sodium (135-145) mmol/L Potassium (3.5-4.5) mmol/L Chloride (101-111) mmol/L Carbon Dioxide (21-32) mmol/L Anion Gap (6-13) BUN (6-20) mg/dL Creatinine (0.6-1.3) mg/dL Estimated GFR (MDRD) (>89) Glucose (74-104) mg/dL POC Whole Bld Glucose 120 H 54 L* (70 - 100) mg/dL Estimat Average Glucose (70-100) mg/dL Hemoglobin A1c % (4.27-6.07) % Lactic Acid 1.4 (0.5-2.2) mmol/L Calcium (8.5-10.3) mg/dL Iron (50-212) ug/dL TIBC (250-450) ug/dL % Saturation (20-50) % Transferrin (203-362) mg/dL Total Bilirubin (0.2-1.0) mg/dL AST (10-42) IU/L ALT (10-60) IU/L Alkaline Phosphatase (42-121) IU/L Lactate Dehydrogenase (140-271) IU/L Total Protein (6.4-8.9) g/dL Albumin (3.2-5.5) g/dL Globulin (2.1-4.2) g/dL Albumin/Globulin Ratio (1.0-2.2) Vitamin B12 (180-914) pg/mL Urine Color Urine Clarity (CLEAR) Urine pH (5.0-7.5) PH Ur Specific Stollings (1.002-1.030) Urine Protein (NEGATIVE) mg/dL Urine Glucose (UA) (NEGATIVE) mg/dL Urine Ketones (NEGATIVE) mg/dL Urine Occult Blood (NEGATIVE) Urine Nitrite (NEGATIVE) Urine Bilirubin (NEGATIVE) Urine Urobilinogen (NORMAL) E.U./dL Ur Leukocyte Esterase (NEGATIVE) Urine RBC (0-5) /HPF Urine WBC (0-3) /HPF Ur Squamous Epith Cells (<= Few) Urine Bacteria (None Seen) /HPF Urine Casts /LPF Urine Culture Comments 03/20/24 03/20/24 03/20/24 Range/Units 05:19 05:19 05:19 WBC (4.8-10.8) x10^3/uL RBC (4.70-6.10) 10^6/uL Hgb (14.0-18.0) g/dL Hct (42.0-52.0) % MCV (80.0-94.0) fL MCH (27.0-31.0) pg MCHC (32.0-36.0) g/dL RDW (12.0-15.0) % Plt Count (130-450) 10^3/uL MPV (7.4-11.4) fL Reticulocyte % (Auto) (0.5-2.3) % Neut # (Auto) (1.5-6.6) 10^3/uL Lymph # (Auto) (1.5-3.5) 10^3/uL Nash # (Auto) (0.0-1.0) 10^3/uL Eos # (Auto) (0.0-0.7) 10^3/uL Baso # (Auto) (0.0-0.1) 10^3/uL Absolute Nucleated RBC x10^3/uL Nucleated RBC % /100WBC Absolute Retic (0.020-0.110) 10^6/uL PT (9.9-12.6) secs INR (0.8-1.2) VBG pH (7.31-7.41) VBG pCO2 (41-51) mmHg VBG pO2 (25-47) mmHg VBG HCO3 (23-28) mmol/L VBG Total CO2 (24-29) mmol/L VBG O2 Saturation (60-80) % VBG Base Excess (-2 - +2) mmol/L Sodium 131 L (135-145) mmol/L Potassium 3.5 (3.5-4.5) mmol/L Chloride 101 (101-111) mmol/L Carbon Dioxide 23 (21-32) mmol/L Anion Gap 7.0 (6-13) BUN 35 H (6-20) mg/dL Creatinine 1.9 H (0.6-1.3) mg/dL Estimated GFR (MDRD) 34 L (>89) Glucose 72 L (74-104) mg/dL POC Whole Bld Glucose (70 - 100) mg/dL Estimat Average Glucose 174 H (70-100) mg/dL Hemoglobin A1c % 7.7 H (4.27-6.07) % Lactic Acid (0.5-2.2) mmol/L Calcium 8.3 L (8.5-10.3) mg/dL Iron (50-212) ug/dL TIBC (250-450) ug/dL % Saturation (20-50) % Transferrin (203-362) mg/dL Total Bilirubin (0.2-1.0) mg/dL AST (10-42) IU/L ALT (10-60) IU/L Alkaline Phosphatase (42-121) IU/L Lactate Dehydrogenase 296 H (140-271) IU/L Total Protein (6.4-8.9) g/dL Albumin (3.2-5.5) g/dL Globulin (2.1-4.2) g/dL Albumin/Globulin Ratio (1.0-2.2) Vitamin B12 (180-914) pg/mL Urine Color Urine Clarity (CLEAR) Urine pH (5.0-7.5) PH Ur Specific Stollings (1.002-1.030) Urine Protein (NEGATIVE) mg/dL Urine Glucose (UA) (NEGATIVE) mg/dL Urine Ketones (NEGATIVE) mg/dL Urine Occult Blood (NEGATIVE) Urine Nitrite (NEGATIVE) Urine Bilirubin (NEGATIVE) Urine Urobilinogen (NORMAL) E.U./dL Ur Leukocyte Esterase (NEGATIVE) Urine RBC (0-5) /HPF Urine WBC (0-3) /HPF Ur Squamous Epith Cells (<= Few) Urine Bacteria (None Seen) /HPF Urine Casts /LPF Urine Culture Comments 03/20/24 03/19/24 03/19/24 Range/Units 05:19 23:31 23:20 WBC 7.7 (4.8-10.8) x10^3/uL RBC 2.86 L (4.70-6.10) 10^6/uL Hgb 9.7 L (14.0-18.0) g/dL Hct 29.7 L (42.0-52.0) % MCV 103.8 H (80.0-94.0) fL MCH 33.9 H (27.0-31.0) pg MCHC 32.7 (32.0-36.0) g/dL RDW 13.0 (12.0-15.0) % Plt Count 85 L (130-450) 10^3/uL MPV 10.8 (7.4-11.4) fL Reticulocyte % (Auto) (0.5-2.3) % Neut # (Auto) 7.0 H (1.5-6.6) 10^3/uL Lymph # (Auto) 0.3 L (1.5-3.5) 10^3/uL Nash # (Auto) 0.3 (0.0-1.0) 10^3/uL Eos # (Auto) 0.0 (0.0-0.7) 10^3/uL Baso # (Auto) 0.0 (0.0-0.1) 10^3/uL Absolute Nucleated RBC 0.00 x10^3/uL Nucleated RBC % 0.0 /100WBC Absolute Retic (0.020-0.110) 10^6/uL PT (9.9-12.6) secs INR (0.8-1.2) VBG pH (7.31-7.41) VBG pCO2 (41-51) mmHg VBG pO2 (25-47) mmHg VBG HCO3 (23-28) mmol/L VBG Total CO2 (24-29) mmol/L VBG O2 Saturation (60-80) % VBG Base Excess (-2 - +2) mmol/L Sodium (135-145) mmol/L Potassium (3.5-4.5) mmol/L Chloride (101-111) mmol/L Carbon Dioxide (21-32) mmol/L Anion Gap (6-13) BUN (6-20) mg/dL Creatinine (0.6-1.3) mg/dL Estimated GFR (MDRD) (>89) Glucose (74-104) mg/dL POC Whole Bld Glucose (70 - 100) mg/dL Estimat Average Glucose (70-100) mg/dL Hemoglobin A1c % (4.27-6.07) % Lactic Acid 2.0 (0.5-2.2) mmol/L Calcium (8.5-10.3) mg/dL Iron (50-212) ug/dL TIBC (250-450) ug/dL % Saturation (20-50) % Transferrin (203-362) mg/dL Total Bilirubin (0.2-1.0) mg/dL AST (10-42) IU/L ALT (10-60) IU/L Alkaline Phosphatase (42-121) IU/L Lactate Dehydrogenase (140-271) IU/L Total Protein (6.4-8.9) g/dL Albumin (3.2-5.5) g/dL Globulin (2.1-4.2) g/dL Albumin/Globulin Ratio (1.0-2.2) Vitamin B12 (180-914) pg/mL Urine Color YELLOW Urine Clarity HAZY (CLEAR) Urine pH 5.5 (5.0-7.5) PH Ur Specific Stollings 1.015 (1.002-1.030) Urine Protein 100 H (NEGATIVE) mg/dL Urine Glucose (UA) NEGATIVE (NEGATIVE) mg/dL Urine Ketones TRACE (NEGATIVE) mg/dL Urine Occult Blood LARGE H (NEGATIVE) Urine Nitrite NEGATIVE (NEGATIVE) Urine Bilirubin NEGATIVE (NEGATIVE) Urine Urobilinogen 1 (NORMAL) (NORMAL) E.U./dL Ur Leukocyte Esterase NEGATIVE (NEGATIVE) Urine RBC 11-25 H (0-5) /HPF Urine WBC 0-3 (0-3) /HPF Ur Squamous Epith Cells FEW Squamous (<= Few) Urine Bacteria Few (None Seen) /HPF Urine Casts 0-2 Course Granular /LPF Urine Culture Comments NOT INDICATED 03/19/24 03/19/24 03/19/24 Range/Units 20:41 20:08 16:59 WBC (4.8-10.8) x10^3/uL RBC (4.70-6.10) 10^6/uL Hgb (14.0-18.0) g/dL Hct (42.0-52.0) % MCV (80.0-94.0) fL MCH (27.0-31.0) pg MCHC (32.0-36.0) g/dL RDW (12.0-15.0) % Plt Count (130-450) 10^3/uL MPV (7.4-11.4) fL Reticulocyte % (Auto) (0.5-2.3) % Neut # (Auto) (1.5-6.6) 10^3/uL Lymph # (Auto) (1.5-3.5) 10^3/uL Nash # (Auto) (0.0-1.0) 10^3/uL Eos # (Auto) (0.0-0.7) 10^3/uL Baso # (Auto) (0.0-0.1) 10^3/uL Absolute Nucleated RBC x10^3/uL Nucleated RBC % /100WBC Absolute Retic (0.020-0.110) 10^6/uL PT (9.9-12.6) secs INR (0.8-1.2) VBG pH (7.31-7.41) VBG pCO2 (41-51) mmHg VBG pO2 (25-47) mmHg VBG HCO3 (23-28) mmol/L VBG Total CO2 (24-29) mmol/L VBG O2 Saturation (60-80) % VBG Base Excess (-2 - +2) mmol/L Sodium (135-145) mmol/L Potassium (3.5-4.5) mmol/L Chloride (101-111) mmol/L Carbon Dioxide (21-32) mmol/L Anion Gap (6-13) BUN (6-20) mg/dL Creatinine (0.6-1.3) mg/dL Estimated GFR (MDRD) (>89) Glucose (74-104) mg/dL POC Whole Bld Glucose 138 H (70 - 100) mg/dL Estimat Average Glucose (70-100) mg/dL Hemoglobin A1c % (4.27-6.07) % Lactic Acid 3.7 H* 7.8 H* (0.5-2.2) mmol/L Calcium (8.5-10.3) mg/dL Iron (50-212) ug/dL TIBC (250-450) ug/dL % Saturation (20-50) % Transferrin (203-362) mg/dL Total Bilirubin (0.2-1.0) mg/dL AST (10-42) IU/L ALT (10-60) IU/L Alkaline Phosphatase (42-121) IU/L Lactate Dehydrogenase (140-271) IU/L Total Protein (6.4-8.9) g/dL Albumin (3.2-5.5) g/dL Globulin (2.1-4.2) g/dL Albumin/Globulin Ratio (1.0-2.2) Vitamin B12 (180-914) pg/mL Urine Color Urine Clarity (CLEAR) Urine pH (5.0-7.5) PH Ur Specific Stollings (1.002-1.030) Urine Protein (NEGATIVE) mg/dL Urine Glucose (UA) (NEGATIVE) mg/dL Urine Ketones (NEGATIVE) mg/dL Urine Occult Blood (NEGATIVE) Urine Nitrite (NEGATIVE) Urine Bilirubin (NEGATIVE) Urine Urobilinogen (NORMAL) E.U./dL Ur Leukocyte Esterase (NEGATIVE) Urine RBC (0-5) /HPF Urine WBC (0-3) /HPF Ur Squamous Epith Cells (<= Few) Urine Bacteria (None Seen) /HPF Urine Casts /LPF Urine Culture Comments 03/19/24 03/19/24 03/19/24 Range/Units 16:53 16:53 16:53 WBC (4.8-10.8) x10^3/uL RBC (4.70-6.10) 10^6/uL Hgb (14.0-18.0) g/dL Hct (42.0-52.0) % MCV (80.0-94.0) fL MCH (27.0-31.0) pg MCHC (32.0-36.0) g/dL RDW (12.0-15.0) % Plt Count (130-450) 10^3/uL MPV (7.4-11.4) fL Reticulocyte % (Auto) (0.5-2.3) % Neut # (Auto) (1.5-6.6) 10^3/uL Lymph # (Auto) (1.5-3.5) 10^3/uL Nash # (Auto) (0.0-1.0) 10^3/uL Eos # (Auto) (0.0-0.7) 10^3/uL Baso # (Auto) (0.0-0.1) 10^3/uL Absolute Nucleated RBC x10^3/uL Nucleated RBC % /100WBC Absolute Retic (0.020-0.110) 10^6/uL PT 16.8 H (9.9-12.6) secs INR 1.6 H (0.8-1.2) VBG pH 7.390 (7.31-7.41) VBG pCO2 30.5 L (41-51) mmHg VBG pO2 28.7 (25-47) mmHg VBG HCO3 18.0 L (23-28) mmol/L VBG Total CO2 19.0 L (24-29) mmol/L VBG O2 Saturation 51.5 L (60-80) % VBG Base Excess -5.8 L (-2 - +2) mmol/L Sodium 129 L (135-145) mmol/L Potassium 4.0 (3.5-4.5) mmol/L Chloride 94 L (101-111) mmol/L Carbon Dioxide 19 L (21-32) mmol/L Anion Gap 16.0 H (6-13) BUN 31 H (6-20) mg/dL Creatinine 2.1 H (0.6-1.3) mg/dL Estimated GFR (MDRD) 30 L (>89) Glucose 191 H (74-104) mg/dL POC Whole Bld Glucose (70 - 100) mg/dL Estimat Average Glucose (70-100) mg/dL Hemoglobin A1c % (4.27-6.07) % Lactic Acid (0.5-2.2) mmol/L Calcium 9.4 (8.5-10.3) mg/dL Iron (50-212) ug/dL TIBC (250-450) ug/dL % Saturation (20-50) % Transferrin (203-362) mg/dL Total Bilirubin 1.9 H (0.2-1.0) mg/dL AST 82 H (10-42) IU/L ALT 44 (10-60) IU/L Alkaline Phosphatase 73 (42-121) IU/L Lactate Dehydrogenase (140-271) IU/L Total Protein 6.5 (6.4-8.9) g/dL Albumin 3.3 (3.2-5.5) g/dL Globulin 3.2 (2.1-4.2) g/dL Albumin/Globulin Ratio 1.0 (1.0-2.2) Vitamin B12 (180-914) pg/mL Urine Color Urine Clarity (CLEAR) Urine pH (5.0-7.5) PH Ur Specific Stollings (1.002-1.030) Urine Protein (NEGATIVE) mg/dL Urine Glucose (UA) (NEGATIVE) mg/dL Urine Ketones (NEGATIVE) mg/dL Urine Occult Blood (NEGATIVE) Urine Nitrite (NEGATIVE) Urine Bilirubin (NEGATIVE) Urine Urobilinogen (NORMAL) E.U./dL Ur Leukocyte Esterase (NEGATIVE) Urine RBC (0-5) /HPF Urine WBC (0-3) /HPF Ur Squamous Epith Cells (<= Few) Urine Bacteria (None Seen) /HPF Urine Casts /LPF Urine Culture Comments 03/19/24 Range/Units 16:53 WBC 13.1 H (4.8-10.8) x10^3/uL RBC 3.22 L (4.70-6.10) 10^6/uL Hgb 11.0 L (14.0-18.0) g/dL Hct 33.6 L (42.0-52.0) % MCV 104.3 H (80.0-94.0) fL MCH 34.2 H (27.0-31.0) pg MCHC 32.7 (32.0-36.0) g/dL RDW 13.1 (12.0-15.0) % Plt Count 88 L (130-450) 10^3/uL MPV 11.3 (7.4-11.4) fL Reticulocyte % (Auto) (0.5-2.3) % Neut # (Auto) 12.2 H (1.5-6.6) 10^3/uL Lymph # (Auto) 0.3 L (1.5-3.5) 10^3/uL Nash # (Auto) 0.5 (0.0-1.0) 10^3/uL Eos # (Auto) 0.0 (0.0-0.7) 10^3/uL Baso # (Auto) 0.0 (0.0-0.1) 10^3/uL Absolute Nucleated RBC 0.00 x10^3/uL Nucleated RBC % 0.0 /100WBC Absolute Retic (0.020-0.110) 10^6/uL PT (9.9-12.6) secs INR (0.8-1.2) VBG pH (7.31-7.41) VBG pCO2 (41-51) mmHg VBG pO2 (25-47) mmHg VBG HCO3 (23-28) mmol/L VBG Total CO2 (24-29) mmol/L VBG O2 Saturation (60-80) % VBG Base Excess (-2 - +2) mmol/L Sodium (135-145) mmol/L Potassium (3.5-4.5) mmol/L Chloride (101-111) mmol/L Carbon Dioxide (21-32) mmol/L Anion Gap (6-13) BUN (6-20) mg/dL Creatinine (0.6-1.3) mg/dL Estimated GFR (MDRD) (>89) Glucose (74-104) mg/dL POC Whole Bld Glucose (70 - 100) mg/dL Estimat Average Glucose (70-100) mg/dL Hemoglobin A1c % (4.27-6.07) % Lactic Acid (0.5-2.2) mmol/L Calcium (8.5-10.3) mg/dL Iron (50-212) ug/dL TIBC (250-450) ug/dL % Saturation (20-50) % Transferrin (203-362) mg/dL Total Bilirubin (0.2-1.0) mg/dL AST (10-42) IU/L ALT (10-60) IU/L Alkaline Phosphatase (42-121) IU/L Lactate Dehydrogenase (140-271) IU/L Total Protein (6.4-8.9) g/dL Albumin (3.2-5.5) g/dL Globulin (2.1-4.2) g/dL Albumin/Globulin Ratio (1.0-2.2) Vitamin B12 (180-914) pg/mL Urine Color Urine Clarity (CLEAR) Urine pH (5.0-7.5) PH Ur Specific Stollings (1.002-1.030) Urine Protein (NEGATIVE) mg/dL Urine Glucose (UA) (NEGATIVE) mg/dL Urine Ketones (NEGATIVE) mg/dL Urine Occult Blood (NEGATIVE) Urine Nitrite (NEGATIVE) Urine Bilirubin (NEGATIVE) Urine Urobilinogen (NORMAL) E.U./dL Ur Leukocyte Esterase (NEGATIVE) Urine RBC (0-5) /HPF Urine WBC (0-3) /HPF Ur Squamous Epith Cells (<= Few) Urine Bacteria (None Seen) /HPF Urine Casts /LPF Urine Culture Comments ABX Reporting Has patient been on IV antibiotics over the past 48 hours?: Yes Sepsis Event Note (H) - Evaluation Current Stage of Sepsis: Sepsis Possible source of Sepsis: positive: Pulmonary - Sepsis Criteria Sepsis Criteria: Recorded Temperature greater than 38.3C or Less than 36C, Recorded Heart Rate greater than 90 bpm, Recorded Respiratory Rate greater than 20, WBC count greater than 12,000 or less than 4000, Metabolic: lactate > 2 mmol/L Assessment/Plan - Problem List (1) Sepsis Impression: Resolved. With antibiotics yesterday in the emergency room and this morning, his lactic acid is now 1.4. White cell count is now 7.7. He does not have a fever. Tachypnea is resolved. Tachycardia has resolved. Baseline creatinine is 1.4. He was 2.1 yesterday and this morning he is 1.9. I interpret the labs and vital signs as someone who is improving. However he just feels miserable. Objective data shows improvement but subjectively he continues to be as miserable as he was last night other than the lack of back pain. Plan: Continue treatment of left upper lobe pneumonia. Continue dehydration, continued need for antibiotics that are IV are the reasons the patient is still in the hospital. POLST form is DNR today. Qualifiers: Sepsis type: sepsis due to unspecified organism Sepsis acute organ dysfunction status: without acute organ dysfunction Qualified Code(s): A41.9 - Sepsis, unspecified organism (2) Pneumonia Conclusion/Plan: Stated in problem #1, Rocephin and azithromycin. Since his chest x-ray does not look like mycoplasma on exam, I will hold off on titers. Minimal cough, no phlegm production so will not be ordering sputum culture. Blood cultures as of today are negative. Has not required oxygen. So far he is 92% on room air. Tachycardia has resolved. Fever resolved. White cell count now normalized. Plan: Rocephin for 5 days and today is day 2. Azithromycin for 3 days and today is day 2. Qualifiers: Pneumonia type: due to unspecified organism Laterality: left Lung location: upper lobe of lung Qualified Code(s): J18.9 - Pneumonia, unspecified organism (3) Atrial fibrillation with RVR Conclusion/Plan: Patient is on a beta-charele. I resumed since his blood pressure is elevated enough to be able to tolerate rate control. Anticoagulation is with Plavix and not with a DOAC or Coumadin. I will contact his primary care provider, [facility], to verify. Rate is much better controlled today. I will not change his meds. (4) FILIPPO (acute kidney injury) Conclusion/Plan: Baseline creatinine is 1.4-1.6. He is 2.3 on admit. Most likely due to lack of p.o. intake from his infection. this in turn has caused dehydration. Urine is also brown right now. Bili is not high enough to cause hyperbilirubinemia. I checked his retic count and no hemolysis. Today his creat is 1.9 so I feel he is improving from this issue in spite of his subjective misery. Still has dry oral mucosa on exam and he feels like he is thirsty. I did give him 2 liters of NS. Plan: 1 L more of normal saline and then reassess creatinine in the morning (5) Controlled type 2 diabetes mellitus without complication, without long-term current use of insulin Conclusion/Plan: He is followed by [facility] [place]. He used to be seen by Josh Cardozo, then switched his care to our local [facility] and then switched over his care to [facility] [place]. From what I can see in the chart his last A1c with the clinics was 6.8% in 2018. I started him on Lantus 10 units last night. And then sliding scale insulin. This morning his glucose was in the 50s. He is not eating very much. A1c was 7.8%. For someone his age that is actually acceptable. Plan: Continue to encourage carb controlled diet I will Discontinue the Lantus and I will Continue sliding scale insulin (6) Hypertension Conclusion/Plan: I resumed his beta-charlee at Lopressor 25 mg p.o. twice daily. I hope to avoid rebound tachycardia and want to control his atrial fibrillation rate. The Lopressor will also help control his blood pressure. He is on Cozaar 25 mg a day and I resumed as well. Both of these medications have holding parameters written by me with holding if systolic less than 110 or heart rate less than 60. Selected Entries 03/20/24 03/20/24 03/20/24 08:11 12:47 16:00 Heart Rate [ 98 96 Brachial] Blood Pressure 127/72 Blood Pressure 136/73 H [Right Brachial artery] although his pulse is in the 90s, I find his blood pressure acceptable. I am hoping that 1 more liter of fluids will bring down his heart rate and that he will be at goal with his pulse tomorrow. Qualifiers: Hypertension type: primary hypertension Qualified Code(s): I10 - Essential (primary) hypertension (7) Cirrhosis Conclusion/Plan: This gentleman does not have a history of alcoholism. No history of withdrawal. Medical record states he drinks 1-2 drinks a day. strength was 8 months ago. The ascites is new. CT has already been done so I do not feel it can need to do an ultrasound of his liver. I ordered hepatitis B and C serology. That was drawn this morning but the results are pending. Today he seems to have tremulousness. He again denies alcohol withdrawal. And his confirms that he stopped drinking 8 months ago. He was asking for Ativan or some trike of tranquilizer because he felt like he was jumping out of his skin. So I have started Ativan 0.5 mg IV push every 2 hours. In spite of his denial of alcohol abuse, he may have mild alcohol withdrawal. Qualifiers: Hepatic cirrhosis type: unspecified hepatic cirrhosis Ascites presence: w ith ascites Qualified Code(s): K74.60 - Unspecified cirrhosis of liver; R18.8 - Other ascites (8) Bright red blood per rectum Conclusion/Plan: Reported once by his . This was with one of his bowel movements on the day of admission. This gentleman has radiation proctitis by history. I do not think he has infectious diarrhea since he has no abdominal pain. Stool was checked for C. difficile and negative. No rectal bleeding reported today. Hemoglobin is stable. (9) ERVIN (dyspnea on exertion) Conclusion/Plan: no history of congestive heart failure. No history of orthopnea or edema. The dyspnea has been gradually worsening and progressive over the last 6 months but no cough, phlegm production. He is currently in A-fib with RVR which could give him temporary acute systolic CHF but his and he are adamant His shortness of breath has been going on for a lot longer any current fast heart rate. Unfortunately he cannot remember the name of his new quality improvement coordinator Vincentian. Asked him if he remembered the name today and he said he did not. Hopefully his will come in later to give me the name. I have ordered an echocardiogram. Has been done. However the results are pending. Did think about PE. But he is already had a CT of the chest that was negative. It was not a CT angiogram. I ordered venous Dopplers to see if he had a DVT and venous Dopplers are negative. As such, I am down to cardiac cause of congestive heart failure. Orthopnea, gradually progressive dyspnea over the last few months. And the pneumonia has made him even more dyspneic. Plan: Review echo when ready. He has received close to 3 L of fluid between yesterday and today and it has helped his kidneys and his overall septic status, but I worry about fluid overload. I will only give him 1 more liter in spite of his complaints of dry mouth..
[2024-03-20] MEDS: SODIUM CHLORIDE 0.9% 1,000 ML IV SCH (17:28)
[2024-03-20] MEDS: ONDANSETRON 4 MG/2 ML VIAL IVP PRN (23:55)
[2024-03-21] MEDS: ACETAMINOPHEN 325 MG TABLET PO PRN (01:16)
[2024-03-21 05:35] LABS: BASOPHILS % (AUTO) 0.3 %; HCT - HEMATOCRIT 33.4 % (42.0-52.0); HGB - HEMOGLOBIN 10.8 g/dL (14.0-18.0); LYMPHOCYTES # (AUTO) 0.3 10^3/uL (1.5-3.5); LYMPHOCYTES % (AUTO) 3.2 %; MEAN CORPUSCULAR HEMOGLOBIN 33.8 pg (27.0-31.0); MEAN CORPUSCULAR HGB CONC 32.3 g/dL (32.0-36.0); MEAN CORPUSCULAR VOLUME 104.4 fL (80.0-94.0); MEAN PLATELET VOLUME 10.9 fL (7.4-11.4); MONOCYTES # (AUTO) 0.5 10^3/uL (0.0-1.0); MONOCYTES % (AUTO) 5.6 %; NEUTROPHILS # (AUTO) 8.3 10^3/uL (1.5-6.6); NEUTROPHILS % (AUTO) 90.1 %; PLT - PLATELET COUNT 92 10^3/uL (130-450); RED CELL DISTRIBUTION WIDTH 13.1 % (12.0-15.0); WHITE BLOOD COUNT 9.3 x10^3/uL (4.8-10.8)
[2024-03-21 05:46] LABS: CALCIUM 8.5 mg/dL (8.5-10.3); CREATININE 1.8 mg/dL (0.6-1.3); POTASSIUM 3.6 mmol/L (3.5-4.5)
[2024-03-21 07:10] LABS: HBsAG SCREEN Negative (Negative); HCV AB Non Reactive (Non Reactive); HEPATITIS B CORE IGM AB Negative (Negative)
[2024-03-21] MEDS: CEFEPIME 2 GM in SODIUM CHLORIDE 0.9% MINIBAG 100 ML IV SCH (08:37)
--- NOTE | 2024-03-21 09:29 | XRAY Report ---
PROCEDURE: Chest 1V INDICATIONS: pneumonia, still w fever hypoxia TECHNIQUE: One view of the chest was acquired. COMPARISON: Chest radiograph on March 19, 2024. FINDINGS: Surgical changes and devices: None. Lungs and pleura: Lung volumes are low. Patchy consolidation in the left hemithorax has increased wi th small left pleural effusion. No right-sided pleural effusion. No pneumothorax bilaterally. Mediastinum: Mediastinal contours appear normal. Heart size is normal. Bones and chest wall: No suspicious bony lesions. Overlying soft tissues appear unremarkable. IMPRESSION: Compared to chest radiograph dated March 19, 2024, patchy consolidation in the left hemithorax is in creased with small left pleural effusion compatible with aspiration and/or pneumonia. Reviewed by: Paula Franco MD on 03/21/2024 8:28 AM SHARA Approved by: Paula Franco MD on 03/21/2024 8:28 AM SHARA Station ID: [id number]
--- NOTE | 2024-03-21 17:30 | PROVIDER PROGRESS NOTE ---
Objective - Vital Signs/Intake & Output Vital Signs: Vital Signs x48h Temp Pulse Resp BP Pulse Ox O2 Flow Rate 03/21/24 16:00 37.5 C 97 20 117/73 91 L 2 Intake & Output: Intake & Output 03/18/24 03/19/24 03/20/24 03/21/24 23:59 23:59 23:59 23:59 Intake Total 2550 3890 1605 Output Total 600 1400 1675 Balance 1950 2490 -70 - Lab Results Fish Bones: 03/21/24 05:27 03/21/24 05:27 Other Labs: Lab Results x24hrs 03/21/24 03/21/24 03/21/24 Range/Units 16:36 11:12 07:48 WBC (4.8-10.8) x10^3/uL RBC (4.70-6.10) 10^6/uL Hgb (14.0-18.0) g/dL Hct (42.0-52.0) % MCV (80.0-94.0) fL MCH (27.0-31.0) pg MCHC (32.0-36.0) g/dL RDW (12.0-15.0) % Plt Count (130-450) 10^3/uL MPV (7.4-11.4) fL Neut # (Auto) (1.5-6.6) 10^3/uL Lymph # (Auto) (1.5-3.5) 10^3/uL Sanders # (Auto) (0.0-1.0) 10^3/uL Eos # (Auto) (0.0-0.7) 10^3/uL Baso # (Auto) (0.0-0.1) 10^3/uL Absolute Nucleated RBC x10^3/uL Nucleated RBC % /100WBC Sodium (135-145) mmol/L Potassium (3.5-4.5) mmol/L Chloride (101-111) mmol/L Carbon Dioxide (21-32) mmol/L Anion Gap (6-13) BUN (6-20) mg/dL Creatinine (0.6-1.3) mg/dL Estimated GFR (MDRD) (>89) Glucose (74-104) mg/dL POC Whole Bld Glucose 152 H 116 H 77 L (70 - 100) mg/dL Calcium (8.5-10.3) mg/dL Hepatitis A IgM Ab (Negative) Hep Bs Antigen (Negative) Hep B Core IgM Ab (Negative) Hepatitis C Antibody (Non Reactive) Hepatitis C Interp (.) 03/21/24 03/21/24 03/21/24 Range/Units 05:27 05:27 03:38 WBC 9.3 (4.8-10.8) x10^3/uL RBC 3.20 L (4.70-6.10) 10^6/uL Hgb 10.8 L (14.0-18.0) g/dL Hct 33.4 L (42.0-52.0) % MCV 104.4 H (80.0-94.0) fL MCH 33.8 H (27.0-31.0) pg MCHC 32.3 (32.0-36.0) g/dL RDW 13.1 (12.0-15.0) % Plt Count 92 L (130-450) 10^3/uL MPV 10.9 (7.4-11.4) fL Neut # (Auto) 8.3 H (1.5-6.6) 10^3/uL Lymph # (Auto) 0.3 L (1.5-3.5) 10^3/uL Sanders # (Auto) 0.5 (0.0-1.0) 10^3/uL Eos # (Auto) 0.0 (0.0-0.7) 10^3/uL Baso # (Auto) 0.0 (0.0-0.1) 10^3/uL Absolute Nucleated RBC 0.00 x10^3/uL Nucleated RBC % 0.0 /100WBC Sodium 130 L (135-145) mmol/L Potassium 3.6 (3.5-4.5) mmol/L Chloride 99 L (101-111) mmol/L Carbon Dioxide 24 (21-32) mmol/L Anion Gap 7.0 (6-13) BUN 37 H (6-20) mg/dL Creatinine 1.8 H (0.6-1.3) mg/dL Estimated GFR (MDRD) 36 L (>89) Glucose 95 (74-104) mg/dL POC Whole Bld Glucose 104 H (70 - 100) mg/dL Calcium 8.5 (8.5-10.3) mg/dL Hepatitis A IgM Ab (Negative) Hep Bs Antigen (Negative) Hep B Core IgM Ab (Negative) Hepatitis C Antibody (Non Reactive) Hepatitis C Interp (.) 03/20/24 03/20/24 Range/Units 21:14 09:10 WBC (4.8-10.8) x10^3/uL RBC (4.70-6.10) 10^6/uL Hgb (14.0-18.0) g/dL Hct (42.0-52.0) % MCV (80.0-94.0) fL MCH (27.0-31.0) pg MCHC (32.0-36.0) g/dL RDW (12.0-15.0) % Plt Count (130-450) 10^3/uL MPV (7.4-11.4) fL Neut # (Auto) (1.5-6.6) 10^3/uL Lymph # (Auto) (1.5-3.5) 10^3/uL Sanders # (Auto) (0.0-1.0) 10^3/uL Eos # (Auto) (0.0-0.7) 10^3/uL Baso # (Auto) (0.0-0.1) 10^3/uL Absolute Nucleated RBC x10^3/uL Nucleated RBC % /100WBC Sodium (135-145) mmol/L Potassium (3.5-4.5) mmol/L Chloride (101-111) mmol/L Carbon Dioxide (21-32) mmol/L Anion Gap (6-13) BUN (6-20) mg/dL Creatinine (0.6-1.3) mg/dL Estimated GFR (MDRD) (>89) Glucose (74-104) mg/dL POC Whole Bld Glucose 105 H (70 - 100) mg/dL Calcium (8.5-10.3) mg/dL Hepatitis A IgM Ab Negative (Negative) Hep Bs Antigen Negative (Negative) Hep B Core IgM Ab Negative (Negative) Hepatitis C Antibody Non Reactive (Non Reactive) Hepatitis C Interp Comment (.) Sepsis Event Note (H) - Evaluation Current Stage of Sepsis: Sepsis Possible source of Sepsis: positive: Pulmonary - Sepsis Criteria Sepsis Criteria: Recorded Temperature greater than 38.3C or Less than 36C, R ecorded Heart Rate greater than 90 bpm, Recorded Respiratory Rate greater than 20, WBC count greater than 12,000 or less than 4000, Metabolic: lactate > 2 mmol/L Assessment/Plan - Problem List (1) Metabolic encephalopathy Impression: Very sedated this morning. He did respond to my touch of the shoulder and opened his eyes to answer my questions. But his speech was slurred, sentence structure was chopped. has been at his bedside all morning long and she also finds him more confused. May be "a smidge better" than yesterday. He did spike a temperature at approximately 4:00 yesterday afternoon as well as midnight. He was also anxious and agitated. Intermittent tremors. He asked me for a sedative. He is listening to our conversation right now with his eyes closed and is following what I am saying. I asked again if there is any way he could be drinking. His MCV is elevated. His INR is elevated. He has trace ascites. And he appears to be going through possible alcohol withdrawal yesterday. But both are adamant that he has not had anything to drink for 8 months. He has had 3 doses of Ativan 0.5 mg and then 1 dose of oxycodone this morning. Very sleepy as a result of it. At this time his encephalopathy may be due to infection that is not responding to my current antibiotic therapy. Combined with a new use of benzodiazepine and in the use of oxycodone. His explained that when he was hospitalized here in the hospital many years ago, he was in the old building in an ICU with pneumonia. He was given Haldol for hallucinations and she adamantly does not want that given to him ever again. She is asking if I could please reduce the amount of sedatives he is getting. She acknowledges that he gets very anxious and agitated but really does not like how sedated he is today. If this patient spikes another temperature, I may be getting a lumbar puncture. (2) Pneumonia Conclusion/Plan: Mercer to be the cause of his initial presentation for sepsis. He is on Rocephin and azithromycin. Since his chest x-ray does not look like mycoplasma on exam, I will hold off on titers. Minimal cough, no phlegm production so will not be ordering sputum culture. Blood cultures are negative. Has not required oxygen. but that I spoke to the nurse and she went back into the vital sign area. She corrected her entries. He has been on 2 L nasal cannula since yesterday. Continues to be on the same oxygen level. Tachycardia has resolved. White cell count came to normal yesterday. Again, spiked to temps over 4 hours yesterday with the last one at midnight last night. I checked a chest x-ray today to see if he has improved. He has not. Chest x-ray shows slight worsening of than left lung pneumonia. Plan: I planned Rocephin for 5 days and today is day 3. I am worried about the fever. Stop Rocephin and changed to cefepime. Azithromycin for 3 days and today is day 3. Will stop after today. Qualifiers: Pneumonia type: due to unspecified organism Laterality: left Lung location: upper lobe of lung Qualified Code(s): J18.9 - Pneumonia, unspecified organism (3) Atrial fibrillation with RVR Conclusion/Plan: Patient is on a beta-charlee. I resumed since his blood pressure is elevated enough to be able to tolerate rate control. Anticoagulation is with Plavix and not with a DOAC or Coumadin. Heart rate is in the 90s. I will not change his meds. (4) FILIPPO (acute kidney injury) Conclusion/Plan: Baseline creatinine is 1.4-1.6. He was 2.3 on admit. Most likely due to lack of p.o. intake from his infection. this in turn has caused dehydration. Urine is also brown right now. Bili is not high enough to cause hyperbilirubinemia. I checked his retic count and no hemolysis. His creat is came down to 1.9 the next day so I feel he is improving from this issue in spite of his subjective misery. He had dry oral mucosa yesterday so I gave him another liter of normal saline. Creatinine is 1.8 today. Plan: Continue 100 cc an hour of normal saline. (5) Controlled type 2 diabetes mellitus without complication, without long-term current use of insulin Conclusion/Plan: He is followed by [facility]. He used to be seen by [facility], then switched his care to our local [facility] and then switched over his care to [facility]. From what I can see in the chart his last A1c with the clinics was 6.8% in 2018. I started him on Lantus 10 units last night. And then sliding scale insulin. In the typesetters printer of March 20 his glucose was in the 50s. He is not eating very much. A1c was 7.8%. For someone his age that is actually acceptable. I stopped the Lantus and now he is only on sliding scale. He is not eating very much. is at the bedside controlling him to have some oranges. He did not eat his eggs and fruit and toast this morning. Laboratory Tests 03/21/24 03/21/24 03/21/24 05:27 07:48 11:12 Glucose 95 POC Whole Bld Glucose 77 L 116 H 03/21/24 16:36 Glucose POC Whole Bld Glucose 152 H Plan: Continue to encourage carb controlled diet I will Continue sliding scale insulin (6) Hypertension Conclusion/Plan: I resumed his beta-charlee at Lopressor 25 mg p.o. twice daily. I hope to avoid rebound tachycardia and want to control his atrial fibrillation rate. The Lopressor will also help control his blood pressure. He is on Cozaar 25 mg a day and I resumed as well. Both of these medications have holding parameters written by me with holding if systolic less than 110 or heart rate less than 60. Selected Entries 03/20/24 03/20/24 03/20/24 08:11 12:47 16:00 Heart Rate [ 98 96 Brachial] Blood Pressure 127/72 Blood Pressure 136/73 H [Right Brachial artery] Selected Entries 03/21/24 03/21/24 08:00 16:00 Blood Pressure 134/90 H 117/73 [Right Brachial artery] although his pulse is in the 90s, I find his blood pressure acceptable. I was hoping that 1 more liter of fluids would bring down his heart rate and that he would be at goal with his pulse today. Still in the 90s. Qualifiers: Hypertension type: primary hypertension Qualified Code(s): I10 - Essential (primary) hypertension (7) Cirrhosis Conclusion/Plan: This gentleman does not have a history of alcoholism. No history of withdrawal. Medical record states he drinks 1-2 drinks a day. Last drink was 8 months ago. The ascites is new. Pro time is prolonged. MCV is high. I asked he and his again if he could be drinking and possibly the putting himself in danger if he denies the truth. But both of them are very adamant that he does not drink. Has not drank for over [address] has already been done so I do not feel it can need to do an ultrasound of his liver. Look for other causes of cirrhosis such as hepatitis and the serology is negative for hep B and C. He was very tremulous March 20 and I started him on Ativan 0.5 mg IV push every 2 hours. Between that and the 1 dose of oxycodone he had today he is very lethargic and sleepy so I will be stopping this medications. Especially in view of the fact that the is adamant that there is no alcohol withdrawal going on. Qualifiers: Hepatic cirrhosis type: unspecified hepatic cirrhosis Ascites presence: with ascites Qualified Code(s): K74.60 - Unspecified cirrhosis of liver; R18.8 - Other ascites (8) Bright red blood per rectum Conclusion/Plan: Reported once by his . This was with one of his bowel movements on the day of admission. This gentleman has radiation proctitis by history. I do not think he has infectious diarrhea since he has no abdominal pain. Stool was checked for C. difficile and negative. No rectal bleeding reported today. Hemoglobin is stable. (9) ERVIN (dyspnea on exertion) Conclusion/Plan: no history of congestive heart failure. No history of orthopnea or edema. The dyspnea has been gradually worsening and progressive over the last 6 months but no cough, phlegm production. He iwas in A-fib with RVR on admit which could give him temporary acute systolic CHF but his and he are adamant His shortness of breath has been going on for a lot longer any current fast heart rate. Unfortunately he cannot remember the name of his new balloon design printer Divehi. Asked him if he remembered the name today and he said he did not. Hopefully his will come in later to give me the name. I have ordered an echocardiogram. Has been done. However the results are still pending. I Did think about PE. But he is already had a CT of the chest that was negative. It was not a CT angiogram. I ordered venous Dopplers to see if he had a DVT and venous Dopplers are negative. As such, I am down to cardiac cause of congestive heart failure. Orthopnea, gradually progressive dyspnea over the last few months. And the pneumonia has made him even more dyspneic. He is on 2 L nasal cannula to maintain O2 sats and that requirement has been stable since yesterday. Fluid intake shows him to be +4440 cc between admission and today. Plan: Review echo when ready. He has received over 4 L of fluid between yesterday and today and it has helped his kidneys and his overall septic status, but I worry about fluid overload. I will stop IV fluids today but resume them tomorrow if he seems dehydrated at 83 cc an hour. (10) Sepsis Impression: Resolved. With antibiotics In the emergency room and on MedSurg, his lactic acid came down to 1.4 within 12 hours. White cell count Was elevated on admission and became normal yesterday. Normal again today. Fortunately fever came back last night. Tachypnea is resolved. Tachycardia has resolved. Baseline creatinine is 1.4. He was 2.1 >> 1.9>>1.8 today Mercer he was improving yesterday from an infectious perspective in spite of his misery. Today his metabolic encephalopathy is alarming. Plan: Continue treatment of left upper lobe pneumonia. POLST form is DNR Yesterday. He Did not want to be resuscitated. but when I mentioned it again today he states that he is change his mind. He wants to be a full code. shakes her head and says that he does not know what he is talking about. When they have discussed this in the past he is a DO NOT RESUSCITATE. Qualifiers: Sepsis type: sepsis due to unspecified organism Sepsis acute organ dysfunction status: without acute organ dysfunction Qualified Code(s): A41.9 - Sepsis, unspecified organism
[2024-03-22 05:15] LABS: BASOPHILS % (AUTO) 0.3 %; HCT - HEMATOCRIT 31.5 % (42.0-52.0); HGB - HEMOGLOBIN 10.6 g/dL (14.0-18.0); LYMPHOCYTES # (AUTO) 0.4 10^3/uL (1.5-3.5); LYMPHOCYTES % (AUTO) 3.5 %; MEAN CORPUSCULAR HEMOGLOBIN 34.3 pg (27.0-31.0); MEAN CORPUSCULAR HGB CONC 33.7 g/dL (32.0-36.0); MEAN CORPUSCULAR VOLUME 101.9 fL (80.0-94.0); MEAN PLATELET VOLUME 10.5 fL (7.4-11.4); MONOCYTES # (AUTO) 0.6 10^3/uL (0.0-1.0); MONOCYTES % (AUTO) 5.4 %; NEUTROPHILS % (AUTO) 89.7 %; NRBC ABSOLUTE COUNT (AUTO) 0.02 x10^3/uL; NUCLEATED RED BLOOD CELLS AUTO 0.2 /100WBC; PLT - PLATELET COUNT 105 10^3/uL (130-450); RED BLOOD COUNT 3.09 10^6/uL (4.70-6.10); RED CELL DISTRIBUTION WIDTH 13.2 % (12.0-15.0); WHITE BLOOD COUNT 11.2 x10^3/uL (4.8-10.8)
[2024-03-22 05:30] LABS: CALCIUM 8.3 mg/dL (8.5-10.3); CREATININE 1.9 mg/dL (0.6-1.3); POTASSIUM 3.3 mmol/L (3.5-4.5)
[2024-03-22 05:44] LABS: THYROID STIMULATING HORMONE 1.08 uIU/mL (0.34-5.60)
[2024-03-22] MEDS: LACTATED RINGERS 1,000 ML IV SCH ×2 (07:46→13:56)
[2024-03-22] MEDS: POTASSIUM CHLOR 10 MEQ/100 ML 10 MEQ/100 ML BAG IV SCH (09:05)
[2024-03-22] MEDS: metroNIDAZOLE 500 MG/100 ML 500 MG/100 ML BAG IV SCH (09:15)
[2024-03-22] MEDS: VANCOMYCIN INJ 2 GM, VANCOMYCIN INJ 500 MG in SODIUM CHLORIDE 0.9% 500 ML IV ONE (10:46)
--- NOTE | 2024-03-22 10:57 | CT Report ---
PROCEDURE: Head WO INDICATIONS: new severe encephalopathy TECHNIQUE: Noncontrast 4.5 mm thick angled axial sections acquired from the foramen magnum to the vertex. For r adiation dose reduction, the following was used: automated exposure control, adjustment of mA and/or kV according to patient size. COMPARISON: None. FINDINGS: Image quality: Excellent. CSF spaces: Basal cisterns are patent. No extra-axial fluid collections. Ventricles are normal in size and shape. Brain: No midline shift. No intracranial masses or hemorrhage. Age-related global volume loss and chronic microvascular ischemic changes. Intracranial atherosclerotic vascular calcifications. Huerta-w alyse matter interface is normal. Skull and face: Calvarium and visualized facial bones are intact, without suspicious lesions. Right lens placement. Sinuses: Visualized sinuses and mastoids are clear. IMPRESSION: No acute intracranial pathology. Reviewed by: Raffi Berrios MD on 03/22/2024 10:55 AM PDT Approved by: Raffi Berrios MD on 03/22/2024 10:55 AM PDT Station ID: [id number]
--- NOTE | 2024-03-22 11:14 | CT Report ---
PROCEDURE: Chest WO INDICATIONS: worsening pna and encephalopathy TECHNIQUE: A CT scan of the chest was performed. Intravenous contrast media was not administered. Images were re corded and evaluated at appropriate window settings. Reformats: axial MIP of the chest, coronal and s agittal. For radiation dose reduction, the following was used: automated exposure control, adjustment of mA and/or kV according to patient size. COMPARISON: Chest radiograph on March 21, 2024. CT chest on March 19, 2024. CT abdomen and pelvis dated March 19, 2024. FINDINGS: Image quality: Diagnostic. Respiratory motion slightly limits evaluation. Chest wall and lower neck: No thyroid nodule which requires sonographic follow up. No axillary or sup raclavicular adenopathy by size. Lungs and pleura: Multifocal consolidation in the left hemithorax, worse in the left upper lobe (4/ , 6/75), increased compared to prior CT chest dated March 19, 2024. No definite centrally obstructin g lesion. Small left pleural effusion, new compared to prior. Right sided dependent atelectasis and r ight lower lobe linear atelectasis. No right-sided pleural effusion. Mild diffuse interlobular septal thickening. No pneumothorax bilaterally. Small amount of mucus in the distal mainstem trachea (4/32) . Mediastinum: Heart size is enlarged. No pericardial effusion. No large vessel abnormality. Mild calci fication of the thoracic aorta. No mediastinal adenopathy by size criteria. Multiple prominent, but not enlarged, mediastinal lymph nodes. For example, prevascular lymph node measures 0.8 cm in short a xis (2/39) and precarinal lymph node measuring 0.9 cm in short axis (2/40). Marked three-vessel coron adarsh calcification/LAD stent. Bones: No aggressive osseous abnormality. No acute fractures. [id number] multilevel degenerativ e changes of the spine. Upper Abdomen: Moderate upper abdominal ascites. Cirrhotic liver morphology. Subtle hypodensity near the intrahepatic IVC is better seen on prior contrast-enhanced CT (series 2, image 101). IMPRESSION: 1.Compared to CT chest dated March 19, 2024, multifocal consolidation in the left hemithorax, worse in the left upper lobe, has increased, suggestive of worsening infection. Recommend radiographic foll ow-up to document resolution and rule out underlying malignancy. 2.Mild pulmonary edema with new small left pleural effusion. 3.Cirrhotic liver morphology with moderate volume ascites, increased compared to prior CT. Subtle hyp odensity near the intrahepatic IVC is better seen on prior contrast-enhanced CT. Recommend a CT or MR I (liver mass protocol) for further evaluation. 4.Cardiomegaly with coronary vessel calcification/LAD stent. Reviewed by: Paula Franco MD on 03/22/2024 10:13 AM SHARA Approved by: Paula Franco MD on 03/22/2024 10:13 AM SHARA Station ID: [id number]
--- NOTE | 2024-03-22 12:18 | PROVIDER PROGRESS NOTE ---
Progress Note 1. 2023 12:11 PM He continues to do poorly. Between yesterday and today he is not improved with my changing his antibiotics to cefepime. Oxygen requirement is stable at 2 L. Encephalopathy remains moderate. He will respond to voice, will open his eyes, but he is not eating. Not drinking. Unable to sit up or roll over in bed due to severe weakness. Tells me that he just "hurts all over" when he is able to open his eyes and answer my questions. He does not tell me that he has chest pain or belly pain. I had a long discussion with his today. Understandably she is still worried because he is not getting better and I validate that concern. We went over the fact that he has cirrhosis but he does not drink enough to have cirr hosis due to alcoholism. His INR is prolonged, cirrhosis on CT on admission and he has some ascites. Exam: Lethargic but responsive elderly white male that is disheveled, unshaven. Cheeks are flushed with redness but he does not have a fever. When he is asleep he is with fast shallow respiration. No agitation, no tremors. Temperature is 36.4. Heart rate is 109. Blood pressure 120/68. Respirations 26, 92% on room air. However, I think this is a mistake on the data warehouse analyst. I went and spoke to the nurse and he is 92% on 3 L right now. She will speak to the nurse from this morning to correct that vital sign. Neck is supple with shotty adenopathy Coarse rhonchi in left lung greater than right lung. Diminished breath sounds at both bases. He is lying on his back, mouth open breathing. Shallow respiration no respiratory distress. Tachycardic irregular rate and rhythm Abdomen soft, nontender, hypoactive bowel sounds. No masses. In spite of cirrhosis on previous CT I am not feeling a fluid wave. reports that he has been having liquid bowel movements even before he came into the hospital. She has had to do a lot of laundry and he continues to have diarrhea while here. But he has a history of microscopic colitis without chronic for him. Extremities with edema, 1+ Neurologically encephalopathic. NO nuchal rigidity on exam. Does open his eyes and will recognize his and mumble a sentence to her. But then closes eyes and is back to sleep again. No focal deficits. No tremors. No agitation. Laboratory Tests 03/22/24 03/22/24 03/22/24 05:00 05:00 05:00 WBC 11.2 H Hgb 10.6 L Hct 31.5 L MCV 101.9 H Plt Count 105 L Sodium 128 L Potassium 3.3 L Chloride 97 L Carbon Dioxide 23 Anion Gap 8.0 BUN 39 H Creatinine 1.9 H Estimated GFR (MDRD) 34 L Glucose 129 H POC Whole Bld Glucose Lactic Acid Calcium 8.3 L Vitamin B12 379 TSH 1.08 03/22/24 03/22/24 03/22/24 07:36 09:31 11:28 WBC Hgb Hct MCV Plt Count Sodium Potassium Chloride Carbon Dioxide Anion Gap BUN Creatinine Estimated GFR (MDRD) Glucose POC Whole Bld Glucose 121 H 140 H Lactic Acid 1.9 Calcium Vitamin B12 TSH Assessment/Plan - Problem List (1) Metabolic encephalopathy Impression: When he was admitted to the hospital he was lethargic because of illness. But appropriate in his sentence structure and able to answer questions and keep his eyes open. He was given antibiotics and IV fluids, and, in spite of adequate resuscitation, became more encephalopathic the next day. Yesterday morning he was very sedated. Today he is even more sedated in my opinion. feels he is about the same as yesterday. He does respond to voice, will open his eyes, but does not stay awake for very long. Last temperature spike was March 20. I treated him as possible alcohol withdrawal and felt that the Ativan and oxycodone may have sedated him right further so I stopped that yesterday. Stopping that did not help. I then ordered ammonia level to see if he had hepatic encephalopathy from cirrhosis and ammonia was 29. I also ordered a head CT for today and that was without acute changes. I did think of doing a lumbar puncture if he spiked another temp. But he has not spiked a temp. And he is on Lovenox and Plavix. He also has an INR of 1.6. I would not be able to do a lumbar puncture for 5 days according to anesthesia. Plan: I am concentrating on infection as the cause of his encephalopathy. Please see problem #2 and make change and antibiotics. (2) Pneumonia Conclusion/Plan: [place] to be the cause of his initial presentation for sepsis. I started Rocephin and azithromycin. Since his chest x-ray did not look like mycoplasma on exam, I will hold off on titers. Minimal cough, no phlegm production so will not be ordering sputum culture. Blood cultures are negative. In reviewing his clinical response to antibiotics, his white cell count was 13.1 on admission and dropped to 7.7 the next day. Yesterday he was 9.3. Unfortunately today he is back up to 11.2. Again no temperature spikes since the . Because of his worsening encephalopathy and lack of true clinical response to antibiotics, I ordered a chest x-ray yesterday. Chest x-ray showed progression of left lung pneumonia. I stopped Rocephin and changed him to Cefepime for broader coverage. Today he continues to lack good response to my change in antibiotics so I ordered a chest CT today. Chest CT shows progression of the left upper lobe pneumonia. Whereas it was 1 segment of his lung on admission, it is now multifocal pneumonia of the left chest. Increasing pleural effusions. Clinically compatible with aspiration. He has completed 3 days of azithromycin today. I started cefipime yesterday to broaden coverage. With his worsening status today, I will be giving him cefipime, vancomycin, and Flagyl. Qualifiers Pneumonia type: due to unspecified organism Laterality: left Lung location: multifocal Qualified Code(s): J18.9 - Pneumonia, unspecified organism (3) Atrial fibrillation with RVR Conclusion/Plan: Patient is on a beta-charlee. I resumed since his blood pressure is elevated enough to be able to tolerate rate control. Anticoagulation is with Plavix and not with a DOAC or Coumadin. Heart rate is in [id number] today in spite of adequate fluid resuscitation and lack of fever, so I will increase his dose of Metoprolol. He is currently on 25 mg p.o. twice daily and I will increase him to 50 mg p.o. twice daily. (4) FILIPPO (acute kidney injury) Conclusion/Plan: Baseline creatinine is 1.4-1.6. He was 2.3 on admit. Most likely due to lack of p.o. intake from his infection. this in turn has caused dehydration. Urine was also brown in the context of new diagnosis of cirrhosis. Bili is not high enough to cause hyperbilirubinemia. I checked his retic count and no hemolysis. His creat is came down to 1.9 the next day so I feel he was improving from this issue in spite of his subjective misery. With continued IVF Creatinine was 1.8 yesterday. Slightly worsened to 1.9 today. Plan: Continue 100 cc an hour of normal saline. i will ask for a retroperitoneal US to evaluated for obstruction (5) Controlled type 2 diabetes mellitus without complication, without long-term current use of insulin Conclusion/Plan: He is followed by [facility]. He used to be seen by [facility], then [facility] and then switched over his care to [facility]. From what I can see in the chart his last A1c with the clinics was 6.8% in 2018. I started him on Lantus 10 units last night. And then sliding scale insulin. In the senior quality technician of March 20 his glucose was in the 50s. He is not eating very much. A1c was 7.8%. For someone his age that is actually acceptable. I stopped the Lantus and now he is only on sliding scale. He is not eating very much. is at the bedside and will occasionally get him to swallow bites of fruit. Laboratory Tests 03/21/24 03/21/24 03/21/24 05:27 07:48 11:12 Glucose 95 POC Whole Bld Glucose 77 L 116 H 03/21/24 16:36 Glucose POC Whole Bld Glucose 152 H Selected Entries 03/22/24 03/22/24 03/22/24 07:39 07:46 11:46 Result (mg/dL) 121 121 140 Plan: Continue to encourage carb controlled diet I will Continue sliding scale insulin (6) Hypertension Conclusion/Plan: I resumed his beta-charlee at Lopressor 25 mg p.o. twice daily. I hope to avoid rebound tachycardia and want to control his atrial fibrillation rate. The Lopressor will also help control his blood pressure. He is on Cozaar 25 mg a day and I resumed as well. Both of these medications have holding parameters written by me with holding if systolic less than 110 or heart rate less than 60. Heart rate has been in the low 100s overnight. I will increase his metoprolol from 25 mg p.o. twice daily to 50 mg p.o. twice daily. Qualifiers: Hypertension type: primary hypertension Qualified Code(s): I10 - Essential (primary) hypertension (7) Cirrhosis Conclusion/Plan: This gentleman does not have a history of alcoholism. No history of withdrawal. Medical record states he drinks 1-2 drinks a day. Last drink was 8 months ago. The ascites is new. Pro time is prolonged. MCV is high. I asked he and his again on 03/21, if he could be drinking and possibly the putting himself in danger if he denies the truth. But both of them are very adamant that he does not drink. Has not drank for over 8 months. Differential diagnosis of cirrhosis and its causes, I thought about history of infectious hepatitis and did serology. That was negative. I doubt he could get autoimmune cirrhosis this late in life. He is not demented so I do not think ceruloplasmin is in order. He does not have leukocytosis and I do not think I will do a ferritin. Repeat CT of the chest was done and does show progression of the pneumonia. There is specific commentary on the CT of the liver and he has moderate nodular cirrhosis with increasing ascites. I then ordered a ammonia level which was 29 and not severe enough to give him encephalopathy. I explained to his that they will need to do outpatient follow-up with a GI specialist to find a diagnosis for the cause of his cirrhosis. Qualifiers: Hepatic cirrhosis type: unspecified hepatic cirrhosis Ascites presence: with ascites Qualified Code(s): K74.60 - Unspecified cirrhosis of liver; R18.8 - Other ascites (8) Bright red blood per rectum Conclusion/Plan: Reported once by his . This was with one of his bowel movements on the day of admission. This gentleman has radiation proctitis by history. I do not think he has infectious diarrhea since he has no abdominal pain. Stool was checked for C. difficile and negative. No rectal bleeding reported today. Hemoglobin is stable. (9) ERVIN (dyspnea on exertion) Conclusion/Plan: no history of congestive heart failure. No history of orthopnea or edema. The dyspnea has been gradually worsening and progressive over the last 6 months but no cough, phlegm production. He iwas in A-fib with RVR on admit which could give him temporary acute systolic CHF but his and he are adamant His shortness of breath has been going on for a lot longer any current fast heart rate. Unfortunately he cannot remember the name of his new brim ironer hand Sandra bhatti. Asked him if he remembered the name today and he said he did not. Hopefully his will come in later to give me the name. I have ordered an echocardiogram. Has been done. However the results are still pending. I Did think about PE. But he is already had a CT of the chest that was negative. It was not a CT angiogram. I ordered venous Dopplers to see if he had a DVT and venous Dopplers are negative. As such, I am down to cardiac cause of congestive heart failure. Orthopnea, gradually progressive dyspnea over the last few months. And the pneumonia has made him even more dyspneic. He is on 2 L nasal cannula to maintain O2 sats and that requirement has been stable since yesterday. Fluid intake shows him to be +4360 cc between admission and today. He was actually -80 cc yesterday. And so far only 400 cc positive. Plan: Review echo when ready. Unfortunately is the long holiday weekend and there is no way to get the nonemergent cardiology clinic to get the results on that echo. I stopped IV fluid maintenance yesterday. Today he is going to be getting new antibiotics in the form of cefepime, Flagyl, and vancomycin and will get fluid with that. (10) Sepsis Impression: Resolved. With antibiotics In the emergency room and on [facility], his lactic acid came down to 1.4 within 12 hours. White cell count Was elevated on admission and became normal yesterday. Normal again today. Fortunately fever came back last night. Tachypnea is resolved. Tachycardia has resolved. Baseline creatinine is 1.4. He was 2.1 >> 1.9>>1.8>>1.9 today [place] he was improving from an infectious perspective in spite of his misery. But metabolic encephalopathy has been getting progressively worse since the initial improvement on admission. Plan: Continue treatment of left upper lobe pneumonia. POLST form is DNR Yesterday. He Did not want to be resuscitated. but when I mentioned it again today he states that he is change his mind. He wants to be a full code. shakes her head and says that he does not know what he is talking about. When they have discussed this in the past he is a DO NOT RESUSCITATE. I reiterated that conversation. She says that he is a DO NOT RESUSCITATE. While she would except me sending him to the unit for pressors, BiPAP, blood transfusions, etc. she does not want to be intubated or to receive CPR. Qualifiers: Sepsis type: sepsis due to unspecified organism Sepsis acute organ dysfunction status: without acute organ dysfunction Qualified Code(s): A41.9 - Sepsis, unspecified organism
[2024-03-23 06:03] LABS: BASOPHILS % (AUTO) 0.1 %; EOSINOPHILS % (AUTO) 0.1 %; HCT - HEMATOCRIT 30.5 % (42.0-52.0); HGB - HEMOGLOBIN 10.3 g/dL (14.0-18.0); LYMPHOCYTES # (AUTO) 0.3 10^3/uL (1.5-3.5); LYMPHOCYTES % (AUTO) 4.2 %; MEAN CORPUSCULAR HEMOGLOBIN 34.4 pg (27.0-31.0); MEAN CORPUSCULAR HGB CONC 33.8 g/dL (32.0-36.0); MEAN PLATELET VOLUME 11.1 fL (7.4-11.4); MONOCYTES # (AUTO) 0.4 10^3/uL (0.0-1.0); MONOCYTES % (AUTO) 5.1 %; NEUTROPHILS # (AUTO) 6.9 10^3/uL (1.5-6.6); NEUTROPHILS % (AUTO) 87.2 %; PLT - PLATELET COUNT 103 10^3/uL (130-450); RED BLOOD COUNT 2.99 10^6/uL (4.70-6.10); RED CELL DISTRIBUTION WIDTH 13.2 % (12.0-15.0); WHITE BLOOD COUNT 7.9 x10^3/uL (4.8-10.8)
[2024-03-23 06:18] LABS: CALCIUM 8.1 mg/dL (8.5-10.3); CREATININE 1.7 mg/dL (0.6-1.3); POTASSIUM 3.4 mmol/L (3.5-4.5)
[2024-03-23] MEDS: POTASSIUM CHLOR 10 MEQ/100 ML 10 MEQ/100 ML BAG IV SCH (10:47)
[2024-03-23] MEDS: LACTATED RINGERS 500 ML IV ONE (10:47)
[2024-03-23] MEDS: VANCOMYCIN INJ 1 GM in SODIUM CHLORIDE 0.9% 250 ML IV SCH (11:09)
--- NOTE | 2024-03-23 12:48 | PROVIDER PROGRESS NOTE ---
Subjective - Prog Note Date Prog Note Date: 03/23/24 Prog Note Time: 12:33 - Subjective Subjective: at the bedside. She brought in some ensure. He had a few bites of breakfast. Her stepson yesterday told me dad sleeps a lot during the day. She confirms that today. She shrugs her shoulders and said he could sleep all day long if she let him They are very different personalities. He is a very type B, easygoing prasanna that will sit in the chair and take a nap at the drop of a hat. She can't sleep during the day. Son did not seem concerned about dad sleeping. is concerned because he is sleeping so much here. He has not been out of bed since he has been in the hospital. He is much more easy to wake up today. He spoke 1 or 2 lucid sentences to me. Yesterday he had a little bit of wheezing according the and today he is breathing much more easily. No wheezing. I had thought to increase his metoprolol for tachycardia in the 90s. But because of his blood pressure dropping, I opted not to do so. Today he is in the 80s systolic. but wakes to voice. denies new pain. c/o back pain again as he did on admit but he then says it's gone. Current Medications - Current Medications Current Medications: Active Medications Cefepime HCl 2 gm/ Sodium (Chloride) 100 mls @ 200 mls/hr IV BID [facility] Last Infusion: 03/23/24 10:33 Dose: Infused Metronidazole (Flagyl 500 Mg/100 Ml) 500 mg in 100 mls @ 100 mls/hr IV Q8H [facility] Last Infusion: 03/23/24 10:32 Dose: Infused Lactated Ringer's (Lr) 1,000 mls @ 83.333 mls/hr IV .Q12H [facility] Last Admin: 03/23/24 00:59 Dose: 83.333 mls/hr Vancomycin HCl 1 gm/ Sodium (Chloride) 250 mls @ 166.667 mls/hr IV Q24H [facility] Last Admin: 03/23/24 11:09 Dose: 166.667 mls/hr Potassium Chloride (Potassium Chloride) 10 meq in 100 mls @ 100 mls/hr IV Q1H [facility] Stop: 03/23/24 14:59 Last Admin: 03/23/24 12:22 Dose: 60 mls/hr Insulin Human Lispro (Insulin Lispro 300 Unit/3 Ml Pen) 1 - 5 unit SUBQ 0800,1200,1700,2100 [facility]; Protocol Last Admin: 03/23/24 12:16 Dose: 1 unit Losartan Potassium (Losartan 50 Mg Tablet) 25 mg PO DAILY [facility] Last Admin: 03/23/24 09:19 Dose: Not Given Metoprolol Tartrate (Metoprolol Tartrate 25 Mg Tablet) 25 mg PO BID [facility] Last Admin: 03/23/24 09:19 Dose: Not Given Ondansetron HCl (Ondansetron Odt 4 Mg Tablet) 4 mg TL Q6HR PRN PRN Reason: Nausea / Vomiting Ondansetron HCl (Ondansetron 4 Mg/2 Ml Vial) 4 mg IVP Q6HR PRN PRN Reason: Nausea / Vomiting Last Admin: 03/20/24 23:55 Dose: 4 mg Saccharomyces Boulardii (Saccharomyces Boulardii 250 Mg Capsule) 250 mg PO BIDWM [facility] Last Admin: 03/23/24 09:19 Dose: 250 mg Sodium Chloride (Sodium Chloride Flush 0.9% 10 Ml Syringe) 10 ml IVP PRN PRN PRN Reason: NEEDED PER PROVIDER ORDERS Sodium Chloride (Sodium Chloride Flush 0.9% 10 Ml Syringe) 10 ml IVP 0100,0900,1700 [facility] Last Admin: 03/23/24 09:21 Dose: 10 ml Clopidogrel [Plavix] 75 mg PO DAILY 10/04/21 Glimepiride 4 tab PO BID 10/04/21 Pioglitazone [Actos] 30 mg PO DAILY 03/18/24 Potassium Chloride [Klor-Con 10] 10 meq PO DAILY 03/18/24 Rosuvastatin Calcium 20 mg PO HS 03/18/24 Furosemide [Lasix] 1 tab PO DAILY 03/20/24 Objective - Vital Signs/Intake & Output Reviewed Vital Signs: Yes Vital Signs: Vital Signs x48h Temp Pulse Resp BP BP BP Pulse Ox 03/23/24 09:19 99/68 03/23/24 09:17 03/23/24 09:09 /68 03/23/24 08:00 36.8 C 94 20 86/55 L 92 O2 Flow Rate 03/23/24 09:19 03/23/24 09:17 2 03/23/24 09:09 03/23/24 08:00 2 Intake & Output: Intake & Output 03/20/24 03/21/24 03/22/24 03/23/24 23:59 23:59 23:59 23:59 Intake Total 3890 5 9 1628 Output Total 1400 2024 2014 400 Balance 2490 -80 904 1228 - Objective General Appearance: positive: No acute distress (disheveled elderly white male), Other (sleeping, snoring, has the pillow over his eyes so he can block the light) Eyes Bilateral: positive: PERRL, EOMI ENT: positive: Dry mucous membranes (because he mouth open breathes) Neck: positive: No JVD. negative: Stiff neck Respiratory: positive: No respiratory distress, Rhonchi. negative: Wheezes, Rales Cardiovascular: positive: Irregularly irregular, Tachycardia (90s to 127 last night, this am 90s), Systolic murmur Abdomen: positive: Non-tender, No organomegaly, Nml bowel sounds, No distention Skin: positive: Warm, Dry Extremities: positive: Full ROM, Pedal edema Neurologic/Psychiatric: positive: CN's nml (2-12), Motor nml, Disoriented to place (mumbling sometimes, other times clear sentence), Disoriented to time, Other (no tremors) - Lab Results Fish Bones: 03/23/24 05:45 03/23/24 05:45 Other Labs: Lab Results x24hrs 03/23/24 03/23/24 03/23/24 Range/Units 11:30 07:44 05:45 WBC (4.8-10.8) x10^3/uL RBC (4.70-6.10) 10^6/uL Hgb (14.0-18.0) g/dL Hct (42.0-52.0) % MCV (80.0-94.0) fL MCH (27.0-31.0) pg MCHC (32.0-36.0) g/dL RDW (12.0-15.0) % Plt Count (130-450) 10^3/uL MPV (7.4-11.4) fL Neut # (Auto) (1.5-6.6) 10^3/uL Lymph # (Auto) (1.5-3.5) 10^3/uL Greenlee # (Auto) (0.0-1.0) 10^3/uL Eos # (Auto) (0.0-0.7) 10^3/uL Baso # (Auto) (0.0-0.1) 10^3/uL Absolute Nucleated RBC x10^3/uL Nucleated RBC % /100WBC Sodium 128 L (135-145) mmol/L Potassium 3.4 L (3.5-4.5) mmol/L Chloride 100 L (101-111) mmol/L Carbon Dioxide 22 (21-32) mmol/L Anion Gap 6.0 (6-13) BUN 43 H (6-20) mg/dL Creatinine 1.7 H (0.6-1.3) mg/dL Estimated GFR (MDRD) 39 L (>89) Glucose 121 H (74-104) mg/dL POC Whole Bld Glucose 146 H 118 H (70 - 100) mg/dL Calcium 8.1 L (8.5-10.3) mg/dL Stl C. diff Tox B Gene (NEGATIVE) Blood Type 03/23/24 03/22/24 03/22/24 Range/Units 05:45 21:08 16:31 WBC 7.9 (4.8-10.8) x10^3/uL RBC 2.99 L (4.70-6.10) 10^6/uL Hgb 10.3 L (14.0-18.0) g/dL Hct 30.5 L (42.0-52.0) % MCV 102.0 H (80.0-94.0) fL MCH 34.4 H (27.0-31.0) pg MCHC 33.8 (32.0-36.0) g/dL RDW 13.2 (12.0-15.0) % Plt Count 103 L (130-450) 10^3/uL MPV 11.1 (7.4-11.4) fL Neut # (Auto) 6.9 H (1.5-6.6) 10^3/uL Lymph # (Auto) 0.3 L (1.5-3.5) 10^3/uL Greenlee # (Auto) 0.4 (0.0-1.0) 10^3/uL Eos # (Auto) 0.0 (0.0-0.7) 10^3/uL Baso # (Auto) 0.0 (0.0-0.1) 10^3/uL Absolute Nucleated RBC 0.00 x10^3/uL Nucleated RBC % 0.0 /100WBC Sodium (135-145) mmol/L Potassium (3.5-4.5) mmol/L Chloride (101-111) mmol/L Carbon Dioxide (21-32) mmol/L Anion Gap (6-13) BUN (6-20) mg/dL Creatinine (0.6-1.3) mg/dL Estimated GFR (MDRD) (>89) Glucose (74-104) mg/dL POC Whole Bld Glucose 121 H 127 H (70 - 100) mg/dL Calcium (8.5-10.3) mg/dL Stl C. diff Tox B Gene (NEGATIVE) Blood Type 03/22/24 03/22/24 Range/Units 14:30 09:06 WBC (4.8-10.8) x10^3/uL RBC (4.70-6.10) 10^6/uL Hgb (14.0-18.0) g/dL Hct (42.0-52.0) % MCV (80.0-94.0) fL MCH (27.0-31.0) pg MCHC (32.0-36.0) g/dL RDW (12.0-15.0) % Plt Count (130-450) 10^3/uL MPV (7.4-11.4) fL Neut # (Auto) (1.5-6.6) 10^3/uL Lymph # (Auto) (1.5-3.5) 10^3/uL Greenlee # (Auto) (0.0-1.0) 10^3/uL Eos # (Auto) (0.0-0.7) 10^3/uL Baso # (Auto) (0.0-0.1) 10^3/uL Absolute Nucleated RBC x10^3/uL Nucleated RBC % /100WBC Sodium (135-145) mmol/L Potassium (3.5-4.5) mmol/L Chloride (101-111) mmol/L Carbon Dioxide (21-32) mmol/L Anion Gap (6-13) BUN (6-20) mg/dL Creatinine (0.6-1.3) mg/dL Estimated GFR (MDRD) (>89) Glucose (74-104) mg/dL POC Whole Bld Glucose (70 - 100) mg/dL Calcium (8.5-10.3) mg/dL Stl C. diff Tox B Gene NEGATIVE (NEGATIVE) Blood Type A POSITIVE ABX Reporting Has patient been on IV antibiotics over the past 48 hours?: Yes Sepsis Event Note (H) - Evaluation Current Stage of Sepsis: Sepsis Possible source of Sepsis: positive: Pulmonary - Sepsis Criteria Sepsis Criteria: Recorded Temperature greater than 38.3C or Less than 36C, Recorded Heart Rate greater than 90 bpm, Recorded Respiratory Rate greater than 20, WBC count greater than 12,000 or less than 4000, Metabolic: lactate > 2 mmol/L Assessment/Plan - Problem List (1) Metabolic encephalopathy Impression: When he was admitted to the hospital he was lethargic because of illness. But appropriate in his sentence structure and able to answer questions and keep his eyes open. He was given antibiotics and IV fluids, and, in spite of adequate resuscitation, became more encephalopathic the next day. By 03/21, he was very s edated and I wondered if the ativan I had given at his request on 03/20 had oversedated him. He does respond to voice, will open his eyes, but does not stay awake for very long. Last temperature spike was March 20. I treated him as possible alcohol withdrawal and felt that the Ativan and oxycodone may have sedated him further so I stopped those meds 03/21. Stopping them did not help. I then ordered ammonia level to see if he had hepatic encephalopathy from cirrhosis and ammonia was 29. I also ordered a head CT 03/22 and that was without acute changes. I did think of doing a lumbar puncture if he spiked another temp. But he has not spiked a temp. And he is on Lovenox and Plavix. He also has an INR of 1.6. I would not be able to do a lumbar puncture for 5 days according to anesthesia . I broadened his abx on 03/22 and his lung exam is better today but BP lower. When he speaks he seems clearer but still falls asleep very easily. I feel he is stable today with slight improvement but I am still worried about him. Plan: I am concentrating on infection as the cause of his encephalopathy. (2) Pneumonia Conclusion/Plan: Duncan to be the cause of his initial presentation for sepsis. I started Rocephin and azithromycin. Since his chest x-ray did not look like mycoplasma on exam, I held off on titers. Minimal cough, no phlegm production so will not be ordering sputum culture. Blood cultures are negative. In reviewing his clinical response to antibiotics, his white cell count was 13.1 on admission and dropped to 7.7. the next day>>9.3 and I changed to Cefepime from Rocephin>>then марина 11.2 so I added flagyl and vancomycin>>7.9 today Because of his worsening encephalopathy and lack of true clinical response to antibiotics, I ordered a chest x-ray03/21. Chest x-ray showed progression of left lung pneumonia. I stopped Rocephin and changed him to Cefepime for broader coverage. 03/22 he continued to lack good response to my change in antibiotics so I ordered a chest CT. Chest CT shows progression of the left upper lobe p neumonia. Whereas it was 1 segment of his lung on admission, it is now multifocal pneumonia of the left chest. Increasing pleural effusions. Clinically compatible with aspiration. He has completed 3 days of azithromycin 03/22. I started cefipime 03/21 and stopped rocephin. With his worsening status 03/22, I added vancomycin, and Flagyl. Today is Day #3 cefepime and Day #2 of flagyl and vanc. Repeat blood cultures have been negative. Qualifiers Pneumonia type: due to unspecified organism Laterality: left Lung location: multifocal Qualified Code(s): J18.9 - Pneumonia, unspecified o rganism (3) Atrial fibrillation with RVR Conclusion/Plan: Patient is on a beta-charlee. I resumed since his blood pressure is elevated enough to be able to tolerate rate control. Anticoagulation is with Plavix and not with a DOAC or Coumadin. Heart rate was [id number] 03/22 in spite of adequate fluid resuscitation and lack of fever, so I was going to increase his dose of Metoprolol. He is currently on 25 mg p.o. twice daily and I was going to increase him to 50 mg p.o. twice daily. But he had hypotension last night and this morning, so I did not increase the dose. I plan on one 500 cc bolus of LR this morning for the low BP (4) FILIPPO (acute kidney injury) Conclusion/Plan: Baseline creatinine is 1.4-1.6. He was 2.3 on admit. Most likely due to lack of p.o. intake from his infection. this in turn has caused dehydration. Urine was also brown in the context of new diagnosis of cirrhosis. Bili is not high enough to cause hyperbilirubinemia. I checked his retic count and no hemolysis. His creat is came down to 1.9 the next day so I feel he was improving from this issue in spite of his subjective misery. With continued IVF Creatinine was 1.8>> 1.9>>1.7 today. I interpret this as improvement. Plan: Continue 100 cc an hour of normal saline after the bolus of LR today. I did see that there was no obstruciton on CT abd on admission (5) Controlled type 2 diabetes mellitus without complication, without long-term current use of insulin Conclusion/Plan: He is followed by [facility]. He used to be seen by [facility], then switched his care to our local [facility] and then switched over his care to [facility]. From what I can see in the chart his last A1c with the clinics was 6.8% in 2018. I started him on Lantus 10 units the night of admission plus sliding scale insulin. 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 He is not eating very much. A1c was 7.8%. For someone his age that is actually acceptable. I stopped the Lantus and now he is only on sliding scale. He is not eating very much. is at the bedside and will occasionally get him to swallow bites of fruit. I will order ensure today
--- NOTE | 2024-03-24 00:05 | Ultrasound Report ---
PROCEDURE: Renal (Retroperitoneal) INDICATIONS: hematuria, renal falure, sepsis TECHNIQUE: Real-time scanning was performed of the retroperitoneal organs, with image documentation. COMPARISON: CT abdomen pelvis 03/19/2024. FINDINGS: Limited exam due to body habitus and limited mobility Kidneys: Kidneys are normal in size. Right kidney measures 9.9 cm long. Right renal cortical thick ness is 1.2 cm. Probable nonobstructing superior pole stone measuring 9 mm. No hydronephrosis. Left k idney is not visualized. Bladder: Pre-void bladder volume is 56.6 mL. Post-void residual was not calculated. Pre-void image s demonstrate no intraluminal masses or stones. On pre-void images, left ureteral jet is visualized with color Doppler interrogation. (Of note, ureteral jets may not be detectable in up to 25% of case s due to insufficient differences in specific gravity between ureteral and bladder urine). Miscellaneous: No free abdominal fluid. IMPRESSION: Limited exam due to body habitus and limited mobility. Probable nonobstructing 9 mm right superior pole calculus. No hydronephrosis. Left kidney is not visu alized. Prevoid volume of 56.6 cc. Postvoid residual volume calculated. Left ureteral jet visualized. Right u reteral jet not visualized. Reviewed by: Daisy Walters MD, PhD on 03/24/2024 12:04 AM PDT Approved by: Daisy Walters MD, PhD on 03/24/2024 12:04 AM PDT Station ID: [id number]
[2024-03-24] MEDS: traZODone 50 MG TABLET PO STA (01:31)
[2024-03-24 06:00] LABS: BASOPHILS % (AUTO) 0.4 %; EOSINOPHILS % (AUTO) 2.1 %; HCT - HEMATOCRIT 29.7 % (42.0-52.0); HGB - HEMOGLOBIN 9.9 g/dL (14.0-18.0); LYMPHOCYTES % (AUTO) 6.1 %; MEAN CORPUSCULAR HEMOGLOBIN 33.8 pg (27.0-31.0); MEAN CORPUSCULAR HGB CONC 33.3 g/dL (32.0-36.0); MEAN CORPUSCULAR VOLUME 101.4 fL (80.0-94.0); MEAN PLATELET VOLUME 11.5 fL (7.4-11.4); MONOCYTES % (AUTO) 5.2 %; NEUTROPHILS % (AUTO) 80.9 %; PLT - PLATELET COUNT 113 10^3/uL (130-450); RED BLOOD COUNT 2.93 10^6/uL (4.70-6.10); RED CELL DISTRIBUTION WIDTH 12.8 % (12.0-15.0); WHITE BLOOD COUNT 6.8 x10^3/uL (4.8-10.8)
[2024-03-24 06:05] LABS: ABNORMAL LYMPHS % (MANUAL) 0 %
[2024-03-24 06:15] LABS: CREATININE 1.8 mg/dL (0.6-1.3); POTASSIUM 3.5 mmol/L (3.5-4.5)
[2024-03-24 06:32] LABS: BAND NEUTROPHILS % (MANUAL) 13 %; EOSINOPHILS # (MANUAL) 0.1 10^3/uL (0-0.7); LYMPHOCYTES # (MANUAL) 0.2 10^3/uL (1.5-3.5); LYMPHOCYTES % (MANUAL) 3 %; MONOCYTES # (MANUAL) 0.2 10^3/uL (0.0-1.0); NEUTROPHILS # (MANUAL) 6.3 10^3/uL (1.5-6.6)
[2024-03-24 06:33] LABS: DIFFERENTIAL COMMENT MANUAL DIFFERENTIAL; PLATELET ESTIMATE, MANUAL DECREASED (<130,000) (NORMAL); RBC MORPHOLOGY (MULTIPLE) NORMAL APPEARANCE (NORMAL)
[2024-03-24 08:17] LABS: ALBUMIN 2.2 g/dL (3.2-5.5); BILIRUBIN,DIRECT 0.5 mg/dL (0.03-0.18); TOTAL PROTEIN 4.6 g/dL (6.4-8.9)
--- NOTE | 2024-03-24 09:01 | PROVIDER PROGRESS NOTE ---
Subjective - Prog Note Date Prog Note Date: 03/24/24 Prog Note Time: 08:58 - Subjective Pt reports feeling: No change Subjective: This morning his BP is low, in the 80-90 systolic range along with occasional atrial fibrillation with RVR. He reports feeling weak but seems more alert and interactive today per previous reports. Denies chest pain, dyspnea, orthopnea, PND, nausea, vomiting. Reports that his myalgias was mostly resolved and he is eating a bit more breakfast today. Objective - Vital Signs/Intake & Output Reviewed Vital Signs: Yes Vital Signs: Vital Signs x48h Temp Pulse Resp BP BP Pulse Ox O2 Flow Rate 03/24/24 08:45 100 18 90/61 92 2 03/24/24 08:36 84/54 L 03/24/24 07:32 36.7 C 69 18 95/57 L 94 2 Intake & Output: Intake & Output 03/21/24 03/22/24 03/23/24 03/24/24 23:59 23:59 23:59 23:59 Intake Total 1944 2919 4538 1606.944 Output Total 2024 2014 1350 400 Balance -80 904 3188 1206.944 - Objective General Appearance: positive: Alert, Other (Appears chronically ill but no acute distress. Hard of hearing.) Eyes Bilateral: positive: Normal inspection, PERRL, EOMI ENT: positive: ENT inspection nml, Pharynx nml, Dry mucous membranes Neck: positive: Nml inspection, Thyroid nml, No JVD, Trachea midline Respiratory: positive: No respiratory distress, Breath sounds nml. negative: Wheezes, Rales, Rhonchi Cardiovascular: positive: Other (Tachycardic, irregular rhythm, 2/6 systolic murmur at the left lower sternal border and right upper sternal border) Peripheral Pulses: 2+ Dorsalis pedis (R), 2+ Dorsalis pedis (L) Abdomen: positive: Non-tender, No organomegaly, Nml bowel sounds, No distention Skin: positive: Color nml, No rash, Warm, Dry Extremities: positive: Nml appearance. negative: No pedal edema Neurologic/Psychiatric: positive: Other (Alert, oriented to person and location but not year. No focal neurologic weakness, subjective decrease sensation to distal lower extremities (baseline per patient), cranial nerves II through XII intact.) - Lab Results Fish Bones: 03/24/24 05:20 03/24/24 05:20 Other Labs: Lab Results x24hrs 03/24/24 03/24/24 03/24/24 Range/Units 07:29 05:20 05:20 WBC (4.8-10.8) x10^3/uL RBC (4.70-6.10) 10^6/uL Hgb (14.0-18.0) g/dL Hct (42.0-52.0) % MCV (80.0-94.0) fL MCH (27.0-31.0) pg MCHC (32.0-36.0) g/dL RDW (12.0-15.0) % Plt Count (130-450) 10^3/uL MPV (7.4-11.4) fL Neut # (Auto) Lymph # (Auto) [place] # (Auto) Eos # (Auto) Baso # (Auto) Absolute Nucleated RBC Total Counted Band Neuts % (Manual) (0 - 10) % Abnorm Lymph % (Manual) % Nucleated RBC % Neutrophils # (Manual) (1.5-6.6) 10^3/uL Lymphocytes # (Manual) (1.5-3.5) 10^3/uL Monocytes # (Manual) (0.0-1.0) 10^3/uL Eosinophils # (Manual) (0-0.7) 10^3/uL Basophils # (Manual) (0-0.1) 10^3/uL Differential Comment Platelet Estimate (NORMAL) RBC Morph Micro Appear (NORMAL) Sodium 129 L (135-145) mmol/L Potassium 3.5 (3.5-4.5) mmol/L Chloride 101 (101-111) mmol/L Carbon Dioxide 21 (21-32) mmol/L Anion Gap 7.0 (6-13) BUN 48 H (6-20) mg/dL Creatinine 1.8 H (0.6-1.3) mg/dL Estimated GFR (MDRD) 36 L (>89) Glucose 123 H (74-104) mg/dL POC Whole Bld Glucose 119 H (70 - 100) mg/dL Calcium 8.0 L (8.5-10.3) mg/dL Total Bilirubin 1.0 (0.2-1.0) mg/dL Direct Bilirubin 0.50 H (0.03-0.18) mg/dL AST 70 H (10-42) IU/L ALT 59 (10-60) IU/L Alkaline Phosphatase 70 (42-121) IU/L Total Protein 4.6 L (6.4-8.9) g/dL Albumin 2.2 L (3.2-5.5) g/dL Globulin 2.4 (2.1-4.2) g/dL Cortisol AM Sample 18.8 ug/dL Blood Type 03/24/24 03/23/24 03/23/24 Range/Units 05:20 20:41 17:06 WBC 6.8 (4.8-10.8) x10^3/uL RBC 2.93 L (4.70-6.10) 10^6/uL Hgb 9.9 L (14.0-18.0) g/dL Hct 29.7 L (42.0-52.0) % MCV 101.4 H (80.0-94.0) fL MCH 33.8 H (27.0-31.0) pg MCHC 33.3 (32.0-36.0) g/dL RDW 12.8 (12.0-15.0) % Plt Count 113 L (130-450) 10^3/uL MPV 11.5 H (7.4-11.4) fL Neut # (Auto) Not Reportable Lymph # (Auto) Not Reportable [place] # (Auto) Not Reportable Eos # (Auto) Not Reportable Baso # (Auto) Not Reportable Absolute Nucleated RBC Not Reportable Total Counted 100 Band Neuts % (Manual) 13 H (0 - 10) % Abnorm Lymph % (Manual) 0 % Nucleated RBC % Not Reportable Neutrophils # (Manual) 6.3 (1.5-6.6) 10^3/uL Lymphocytes # (Manual) 0.2 L (1.5-3.5) 10^3/uL Monocytes # (Manual) 0.2 (0.0-1.0) 10^3/uL Eosinophils # (Manual) 0.1 (0-0.7) 10^3/uL Basophils # (Manual) 0.0 (0-0.1) 10^3/uL Differential Comment MANUAL DIFFERENTIAL Platelet Estimate DECREASED (<130,000) (NORMAL) RBC Morph Micro Appear NORMAL APPEARANCE (NORMAL) Sodium (135-145) mmol/L Potassium (3.5-4.5) mmol/L Chloride (101-111) mmol/L Carbon Dioxide (21-32) mmol/L Anion Gap (6-13) BUN (6-20) mg/dL Creatinine (0.6-1.3) mg/dL Estimated GFR (MDRD) (>89) Glucose (74-104) mg/dL POC Whole Bld Glucose 155 H 138 H (70 - 100) mg/dL Calcium (8.5-10.3) mg/dL Total Bilirubin (0.2-1.0) mg/dL Direct Bilirubin (0.03-0.18) mg/dL AST (10-42) IU/L ALT (10-60) IU/L Alkaline Phosphatase (42-121) IU/L Total Protein (6.4-8.9) g/dL Albumin (3.2-5.5) g/dL Globulin (2.1-4.2) g/dL Cortisol AM Sample ug/dL Blood Type 03/23/24 03/22/24 Range/Units 11:30 09:06 WBC (4.8-10.8) x10^3/uL RBC (4.70-6.10) 10^6/uL Hgb (14.0-18.0) g/dL Hct (42.0-52.0) % MCV (80.0-94.0) fL MCH (27.0-31.0) pg MCHC (32.0-36.0) g/dL RDW (12.0-15.0) % Plt Count (130-450) 10^3/uL MPV (7.4-11.4) fL Neut # (Auto) Lymph # (Auto) [place] # (Auto) Eos # (Auto) Baso # (Auto) Absolute Nucleated RBC Total Counted Band Neuts % (Manual) (0 - 10) % Abnorm Lymph % (Manual) % Nucleated RBC % Neutrophils # (Manual) (1.5-6.6) 10^3/uL Lymphocytes # (Manual) (1.5-3.5) 10^3/uL Monocytes # (Manual) (0.0-1.0) 10^3/uL Eosinophils # (Manual) (0-0.7) 10^3/uL Basophils # (Manual) (0-0.1) 10^3/uL Differential Comment Platelet Estimate (NORMAL) RBC Morph Micro Appear (NORMAL) Sodium (135-145) mmol/L Potassium (3.5-4.5) mmol/L Chloride (101-111) mmol/L Carbon Dioxide (21-32) mmol/L Anion Gap (6-13) BUN (6-20) mg/dL Creatinine (0.6-1.3) mg/dL Estimated GFR (MDRD) (>89) Glucose (74-104) mg/dL POC Whole Bld Glucose 146 H (70 - 100) mg/dL Calcium (8.5-10.3) mg/dL Total Bilirubin (0.2-1.0) mg/dL Direct Bilirubin (0.03-0.18) mg/dL AST (10-42) IU/L ALT (10-60) IU/L Alkaline Phosphatase (42-121) IU/L Total Protein (6.4-8.9) g/dL Albumin (3.2-5.5) g/dL Globulin (2.1-4.2) g/dL Cortisol AM Sample ug/dL Blood Type A POSITIVE - Diagnostic Imaging Diagnostic Imaging Comments: Renal Ultrasound: Limited exam due to body habitus and limited mobility. Probable nonobstructing 9 mm right superior pole calculus. No hydronephrosis. Left kidney is not visualized. Prevoid volume is 56.6 cc. Postvoid residual volume calculated. Left ureteral jet visualized. Right ureteral jet not visualized. Sepsis Event Note (H) - Evaluation Current Stage of Sepsis: Sepsis Possible source of Sepsis: positive: Pulmonary - Sepsis Criteria Sepsis Criteria: Recorded Temperature greater than 38.3C or Less than 36C, Recorded Heart Rate greater than 90 bpm, Recorded Respiratory Rate greater than 20, WBC count greater than 12,000 or less than 4000, Metabolic: lactate > 2 mmol/L Assessment/Plan - Problem List (1) Metabolic encephalopathy Impression: He has been confused since his presentation, which seems to be a metabolic encephalopathy due to his acute illness and infectious process (pneumonia/sepsis). Initially was treated with some Ativan for possible alcohol withdrawal but he seemed to be more sedated, dose Ativan and oxycodone were held. An ammonia level, TSH, B12 and head CT have all been unremarkable. He has been responding to antibiotics in the sense of no ongoing fevers and his white blood cell count is better, and he has no meningismus, thus a primary SALES AND MARKETING DIRECTOR infection is unlikely. -Overall mentation appears improved today compared to prior. -Continue treating his infectious issues as noted below. -No focal neurologic deficits to warrant brain MRI. (2) Severe sepsis Impression: Severe sepsis is secondary to his left-sided pneumonia. He meets criteria for severe sepsis due to acute kidney injury as well as altered mental status. -He has received IV fluids over the past several days. -Today his blood pressure is lower and he will be given another 1 L LR bolus. -Blood cultures are no growth to date thus far. -Given recurrent hypotension, will check morning cortisol today. (3) Pneumonia Impression: His admission and chest x-ray appear to be more lobar consolidation and his viral studies were negative. He has not been producing much sputum thus unable to obtain sputum cultures. He was placed on IV ceftriaxone and azithromycin though he did not seem to respond to this. A repeat chest x-ray after admission showed progression of his left lung pneumonia and ceftriaxone was exchanged for cefepime. He continued to not have a good response and a chest CT was obtained that showed progression of the left upper lobe pneumonia to a multifocal left- sided pneumonia, with some concern for aspiration. He completed 3 days of azithromycin and on 03/22 vancomycin and metronidazole were added. -Overall clinically does seem to be better with the current antimicrobial therapy. -Blood cultures are no growth to date. -Continue current antimicrobial therapy for the time being. (4) Atrial fibrillation with RVR Impression: The patient is on Plavix at home but not oral anticoagulation. His heart rate has been fluctuating during his stay here thus far, frequently having bursts of RVR but also spending time in normal rate. -Holding metoprolol this morning due to hypotension. -If we run into issues with ongoing RVR, can try digoxin or amiodarone. (5) FILIPPO (acute kidney injury) Impression: He has baseline CKD with creatinine around 1.4-1.6 normally. On admission his creatinine was 2.3 which is most likely due to decreased oral intake, prerenal causes from sepsis and dehydration. -Creatinine has improved with IV fluids. Continue IV fluids for now. -Check CK. -Renal ultrasound unremarkable. (6) Controlled type 2 diabetes mellitus without complication, without long-term current use of insulin Impression: [place] [facility] [place] to be seen by Josh Cardozo, then switched his care to our local [facility] clinics and then [place] [facility]. From what I can see in the chart his last A1c with the clinics was 6.8% in 2018. I started him on Lantus 10 units the night of admission plus sliding scale insulin. In the solar hot water installer of March 20 his glucose was in the 50s. He is not eating very much. A1c was 7.8%. For someone his age that is actually acceptable. I stopped the Lantus and now he is only on sliding scale. He is not eating very much. is at the bedside and will occasionally get him to swallow bites of fruit.
[2024-03-24 09:23] LABS: MAGNESIUM 1.8 mg/dL (1.7-2.3); PHOSPHORUS 2.5 mg/dL (2.5-5.0)
[2024-03-24] MEDS: LACTATED RINGERS 1,000 ML IV ONE (09:55)
[2024-03-24] MEDS ORDERED: PSYLLIUM PACKET PO PRN (10:32)
[2024-03-24] MEDS: LOPERAMIDE 2 MG CAPSULE PO PRN (14:25)
[2024-03-24] MEDS ORDERED: CEFEPIME 2 GM in SODIUM CHLORIDE 0.9% MINIBAG 100 ML IV SCH (15:11)
[2024-03-24] MEDS: MULTIVITAMIN W/MINERALS TABLET PO SCH (21:18)
[2024-03-24] MEDS: traZODone 50 MG TABLET PO SCH (22:46)
[2024-03-25 06:07] LABS: BASOPHILS % (AUTO) 0.5 %; EOSINOPHILS % (AUTO) 3.9 %; HCT - HEMATOCRIT 30.6 % (42.0-52.0); HGB - HEMOGLOBIN 10.4 g/dL (14.0-18.0); LYMPHOCYTES % (AUTO) 6.7 %; MEAN PLATELET VOLUME 11.3 fL (7.4-11.4); NEUTROPHILS % (AUTO) 77.6 %; PLT - PLATELET COUNT 150 10^3/uL (130-450); RED BLOOD COUNT 3.06 10^6/uL (4.70-6.10); RED CELL DISTRIBUTION WIDTH 12.9 % (12.0-15.0); WHITE BLOOD COUNT 8.6 x10^3/uL (4.8-10.8)
[2024-03-25 06:13] LABS: ABNORMAL LYMPHS % (MANUAL) 0 %
[2024-03-25 06:19] LABS: CREATININE 1.9 mg/dL (0.6-1.3); POTASSIUM 3.2 mmol/L (3.5-4.5)
[2024-03-25 06:35] LABS: BAND NEUTROPHILS % (MANUAL) 6 %; DIFFERENTIAL COMMENT MANUAL DIFFERENTIAL; EOSINOPHILS # (MANUAL) 0.2 10^3/uL (0-0.7); LYMPHOCYTES # (MANUAL) 0.7 10^3/uL (1.5-3.5); LYMPHOCYTES % (MANUAL) 8 %; MONOCYTES # (MANUAL) 0.1 10^3/uL (0.0-1.0); NEUTROPHILS # (MANUAL) 7.7 10^3/uL (1.5-6.6); PLATELET ESTIMATE, MANUAL NORMAL (130-450,000) (NORMAL); RBC MORPHOLOGY (MULTIPLE) NORMAL APPEARANCE (NORMAL)
--- NOTE | 2024-03-25 07:06 | PROVIDER PROGRESS NOTE ---
Subjective - Prog Note Date Prog Note Date: 03/25/24 Prog Note Time: 07:06 - Subjective Pt reports feeling: Improved Subjective: Over the past 36 hours the patient has continued to improve with his mentation significantly clearing. His visited yesterday and indicated she is very pleased with the improvement and that he is returning towards his normal. He still remains very fatigued, weak and deconditioned. He was still having loose bowel movement/diarrhea yesterday though that is improved today after he took some Imodium. He denies having any abdominal pain, nausea, vomiting, chest pain or shortness of breath. He does have an occasional cough that is nonproductive. He also does have some abdominal bloating however he does not feel abnormal in this regard. Objective - Vital Signs/Intake & Output Reviewed Vital Signs: Yes Vital Signs: Vital Signs x48h Temp Pulse Resp BP Pulse Ox O2 Flow Rate 03/25/24 01:10 36.6 C 108 H 20 110/68 93 2 Intake & Output: Intake & Output 03/22/24 03/23/24 03/24/24 03/25/24 23:59 23:59 23:59 23:59 Intake Total 2919 4538 4396.944 1100.00 Output Total 2014 1350 960 450 Balance 904 3188 3436.944 650.00 - Objective General Appearance: positive: No acute distress, Alert, Other (Appears weak and fatigued/ill.) Eyes Bilateral: positive: Normal inspection, PERRL, EOMI ENT: positive: ENT inspection nml, Pharynx nml Neck: positive: Nml inspection, Thyroid nml, No JVD, Trachea midline Respiratory: positive: No respiratory distress, Breath sounds nml. negative: Wheezes, Rales, Rhonchi Cardiovascular: positive: Other (Normal rate, irregular rhythm. 2/6 systolic murmur at the left lower sternal border and right upper sternal border.) Abdomen: positive: Non-tender, No organomegaly, Nml bowel sounds. negative: No distention Skin: positive: Color nml, No rash, Warm, Dry Extremities: positive: Nml appearance, No pedal edema Neurologic/Psychiatric: positive: Oriented x3, CN's nml (2-12), Motor nml, Sensation nml, Other (Global weakness noted but no focal neurologic deficit. Drowsy at times but awakens easily and is appropriately interactive.) - Lab Results Fish Bones: 03/25/24 05:18 03/25/24 05:18 Other Labs: Lab Results x24hrs 03/25/24 03/25/24 03/24/24 Range/Units 05:18 05:18 20:33 WBC 8.6 (4.8-10.8) x10^3/uL RBC 3.06 L (4.70-6.10) 10^6/uL Hgb 10.4 L (14.0-18.0) g/dL Hct 30.6 L (42.0-52.0) % MCV 100.0 H (80.0-94.0) fL MCH 34.0 H (27.0-31.0) pg MCHC 34.0 (32.0-36.0) g/dL RDW 12.9 (12.0-15.0) % Plt Count 150 (130-450) 10^3/uL MPV 11.3 (7.4-11.4) fL Neut # (Auto) Not Reportable Lymph # (Auto) Not Reportable [place] # (Auto) Not Reportable Eos # (Auto) Not Reportable Baso # (Auto) Not Reportable Absolute Nucleated RBC Not Reportable Total Counted 100 Band Neuts % (Manual) 6 (0 - 10) % Abnorm Lymph % (Manual) 0 % Nucleated RBC % Not Reportable Neutrophils # (Manual) 7.7 H (1.5-6.6) 10^3/uL Lymphocytes # (Manual) 0.7 L (1.5-3.5) 10^3/uL Monocytes # (Manual) 0.1 (0.0-1.0) 10^3/uL Eosinophils # (Manual) 0.2 (0-0.7) 10^3/uL Basophils # (Manual) 0.0 (0-0.1) 10^3/uL Differential Comment MANUAL DIFFERENTIAL Platelet Estimate NORMAL (130-450,000) (NORMAL) RBC Morph Micro Appear NORMAL APPEARANCE (NORMAL) Sodium 129 L (135-145) mmol/L Potassium 3.2 L (3.5-4.5) mmol/L Chloride 102 (101-111) mmol/L Carbon Dioxide 21 (21-32) mmol/L Anion Gap 6.0 (6-13) BUN 51 H (6-20) mg/dL Creatinine 1.9 H (0.6-1.3) mg/dL Estimated GFR (MDRD) 34 L (>89) Glucose 133 H (74-104) mg/dL POC Whole Bld Glucose 172 H (70 - 100) mg/dL Calcium 8.0 L (8.5-10.3) mg/dL Phosphorus (2.5-5.0) mg/dL Magnesium (1.7-2.3) mg/dL Total Bilirubin (0.2-1.0) mg/dL Direct Bilirubin (0.03-0.18) mg/dL AST (10-42) IU/L ALT (10-60) IU/L Alkaline Phosphatase (42-121) IU/L Total Creatine Kinase (30-223) IU/L Total Protein (6.4-8.9) g/dL Albumin (3.2-5.5) g/dL Globulin (2.1-4.2) g/dL Cortisol AM Sample ug/dL Nasal Screen MRSA (PCR) (NEGATIVE) 03/24/24 03/24/24 03/24/24 Range/Units 16:35 12:00 11:13 WBC (4.8-10.8) x10^3/uL RBC (4.70-6.10) 10^6/uL Hgb (14.0-18.0) g/dL Hct (42.0-52.0) % MCV (80.0-94.0) fL MCH (27.0-31.0) pg MCHC (32.0-36.0) g/dL RDW (12.0-15.0) % Plt Count (130-450) 10^3/uL MPV (7.4-11.4) fL Neut # (Auto) Lymph # (Auto) [place] # (Auto) Eos # (Auto) Baso # (Auto) Absolute Nucleated RBC Total Counted Band Neuts % (Manual) (0 - 10) % Abnorm Lymph % (Manual) % Nucleated RBC % Neutrophils # (Manual) (1.5-6.6) 10^3/uL Lymphocytes # (Manual) (1.5-3.5) 10^3/uL Monocytes # (Manual) (0.0-1.0) 10^3/uL Eosinophils # (Manual) (0-0.7) 10^3/uL Basophils # (Manual) (0-0.1) 10^3/uL Differential Comment Platelet Estimate (NORMAL) RBC Morph Micro Appear (NORMAL) Sodium (135-145) mmol/L Potassium (3.5-4.5) mmol/L Chloride (101-111) mmol/L Carbon Dioxide (21-32) mmol/L Anion Gap (6-13) BUN (6-20) mg/dL Creatinine (0.6-1.3) mg/dL Estimated GFR (MDRD) (>89) Glucose (74-104) mg/dL POC Whole Bld Glucose 136 H 136 H (70 - 100) mg/dL Calcium (8.5-10.3) mg/dL Phosphorus (2.5-5.0) mg/dL Magnesium (1.7-2.3) mg/dL Total Bilirubin (0.2-1.0) mg/dL Direct Bilirubin (0.03-0.18) mg/dL AST (10-42) IU/L ALT (10-60) IU/L Alkaline Phosphatase (42-121) IU/L Total Creatine Kinase (30-223) IU/L Total Protein (6.4-8.9) g/dL Albumin (3.2-5.5) g/dL Globulin (2.1-4.2) g/dL Cortisol AM Sample ug/dL Nasal Screen MRSA (PCR) NEGATIVE (NEGATIVE) 03/24/24 03/24/24 03/24/24 Range/Units 07:29 05:20 05:20 WBC (4.8-10.8) x10^3/uL RBC (4.70-6.10) 10^6/uL Hgb (14.0-18.0) g/dL Hct (42.0-52.0) % MCV (80.0-94.0) fL MCH (27.0-31.0) pg MCHC (32.0-36.0) g/dL RDW (12.0-15.0) % Plt Count (130-450) 10^3/uL MPV (7.4-11.4) fL Neut # (Auto) Lymph # (Auto) [place] # (Auto) Eos # (Auto) Baso # (Auto) Absolute Nucleated RBC Total Counted Band Neuts % (Manual) (0 - 10) % Abnorm Lymph % (Manual) % Nucleated RBC % Neutrophils # (Manual) (1.5-6.6) 10^3/uL Lymphocytes # (Manual) (1.5-3.5) 10^3/uL Monocytes # (Manual) (0.0-1.0) 10^3/uL Eosinophils # (Manual) (0-0.7) 10^3/uL Basophils # (Manual) (0-0.1) 10^3/uL Differential Comment Platelet Estimate (NORMAL) RBC Morph Micro Appear (NORMAL) Sodium (135-145) mmol/L Potassium (3.5-4.5) mmol/L Chloride (101-111) mmol/L Carbon Dioxide (21-32) mmol/L Anion Gap (6-13) BUN (6-20) mg/dL Creatinine (0.6-1.3) mg/dL Estimated GFR (MDRD) (>89) Glucose (74-104) mg/dL POC Whole Bld Glucose 119 H (70 - 100) mg/dL Calcium (8.5-10.3) mg/dL Phosphorus 2.5 (2.5-5.0) mg/dL Magnesium 1.8 (1.7-2.3) mg/dL Total Bilirubin 1.0 (0.2-1.0) mg/dL Direct Bilirubin 0.50 H (0.03-0.18) mg/dL AST 70 H (10-42) IU/L ALT 59 (10-60) IU/L Alkaline Phosphatase 70 (42-121) IU/L Total Creatine Kinase 23 L (30-223) IU/L Total Protein 4.6 L (6.4-8.9) g/dL Albumin 2.2 L (3.2-5.5) g/dL Globulin 2.4 (2.1-4.2) g/dL Cortisol AM Sample 18.8 ug/dL Nasal Screen MRSA (PCR) (NEGATIVE) Sepsis Event Note (H) - Evaluation Current Stage of Sepsis: Sepsis Possible source of Sepsis: positive: Pulmonary - Sepsis Criteria Sepsis Criteria: Recorded Temperature greater than 38.3C or Less than 36C, Recorded Heart Rate greater than 90 bpm, Recorded Respiratory Rate greater than 20, WBC count greater than 12,000 or less than 4000, Metabolic: lactate > 2 mmol/L Assessment/Plan - Problem List (1) Metabolic encephalopathy Impression: He has been confused since his presentation, which seems to be a metabolic encephalopathy due to his acute illness and infectious process (pneumonia/sepsis). Initially was treated with some Ativan for possible alcohol withdrawal but he seemed to be more sedated, dose Ativan and oxycodone were held. An ammonia level, TSH, B12 and head CT have all been unremarkable. He has been responding to antibiotics in the sense of no ongoing fevers and his white blood cell count is better, and he has no meningismus, thus a primary BOTTOM POLISHER infection is unlikely. -Mentation continues to improve. He is drowsy at times, but much more appropriate and similar to his baseline self per . -Continue treating his infectious issues as noted below. -No focal neurologic deficits to warrant brain MRI. (2) Severe sepsis Impression: Severe sepsis is secondary to his left-sided pneumonia. He meets criteria for severe sepsis due to acute kidney injury as well as altered mental status. -He has received IV fluids over the past several days. -Blood pressure has improved with IV fluids. -Blood cultures are no growth to date thus far. -Morning cortisol was normal. -Overall his severe sepsis is improving. (3) Pneumonia Impression: His admission and chest x-ray appear to be more lobar consolidation and his viral studies were negative. He has not been producing much sputum thus unable to obtain sputum cultures. He was placed on IV ceftriaxone and azithromycin though he did not seem to respond to this. A repeat chest x-ray after admission showed progression of his left lung pneumonia and ceftriaxone was exchanged for cefepime. He continued to not have a good response and a chest CT was obtained that showed progression of the left upper lobe pneumonia to a multifocal left- sided pneumonia, with some concern for aspiration. He completed 3 days of azithromycin and on 03/22 vancomycin and metronidazole were added. -He seems to be improving with the broadening of his antibiotics as noted above. -Blood cultures are no growth to date. -His MRSA nares swab was negative, thus we will discontinue vancomycin as it is unlikely that he has MRSA pneumonia. -Continue cefepime and metronidazole for the time being. (4) Atrial fibrillation with RVR Impression: The patient is on Plavix at home but not oral anticoagulation. His heart rate has been fluctuating during his stay here thus far, frequently having bursts of RVR but also spending time in normal rate. -Will resume metoprolol to tartrate at 12.5 mg twice daily. Monitor closely for hypotension. -If we run into issues with ongoing RVR, can try digoxin or amiodarone if he remains hypotensive. (5) FILIPPO (acute kidney injury) Impression: He has baseline CKD with creatinine around 1.4-1.6 normally. On admission his creatinine was 2.3 which is most likely due to decreased oral intake, prerenal causes from sepsis and dehydration.There could be a small component of contrast- induced nephropathy as well. -Creatinine has improved with IV fluids though remains elevated above his baseline. -Renal ultrasound unremarkable. -CK is unremarkable. -Repeat BMP tomorrow. (6) Physical deconditioning Impression: As a result of his dehydration, decreased oral intake and acute illness with severe sepsis he is now very deconditioned. -PT/OT consulted. Anticipate that he will likely need SNF as he is very deconditioned and his just underwent back surgery 2 weeks ago and can only lift 5 pounds herself at most. (7) Controlled type 2 diabetes mellitus without complication, without long-term current use of insulin Impression: He is followed by [facility] [place]. He used to be seen by Josh Cardozo, then switched his care to our local [facility] health clinics and then switched over his care to [facility] [place]. From what I can see in the chart his last A1c with the clinics was 6.8% in 2018. I started him on Lantus 10 units the night of admission plus sliding scale insulin. In the automotive engineer of March 20 his glucose was in the 50s. He is not eating very much. A1c was 7.8%. For someone his age that is actually acceptable. I stopped the Lantus and now he is only on sliding scale. He is not eating very much. is at the bedside and will occasionally get him to swallow bites of fruit.
[2024-03-25] MEDS: CEFEPIME 2 GM in SODIUM CHLORIDE 0.9% MINIBAG 100 ML IV SCH (08:28)
[2024-03-25] MEDS: METOPROLOL TARTRATE 25 MG TABLET PO SCH (08:32)
[2024-03-25] MEDS: POTASSIUM CHLORIDE 20 MEQ TABLET PO ONE (08:32)
[2024-03-25] MEDS: DIGOXIN 500 MCG/2 ML AMP IVP ONE (12:08)
[2024-03-25] MEDS: SODIUM CHLORIDE 0.9% 500 ML IV ONE (13:57)
[2024-03-25] MEDS: FLUDROCORTISONE 0.1 MG TABLET PO SCH (14:43)
[2024-03-25] MEDS: traZODone 50 MG TABLET PO PRN (20:14)
[2024-03-25] MEDS: DIGOXIN 500 MCG/2 ML AMP IVP SCH (21:34)
[2024-03-25] MEDS: ALBUMIN 25% 12.5 GM/50 ML VIAL IV SCH (21:51)
[2024-03-26 05:54] LABS: BASOPHILS % (AUTO) 0.4 %; EOSINOPHILS % (AUTO) 3.3 %; HCT - HEMATOCRIT 31.9 % (42.0-52.0); HGB - HEMOGLOBIN 10.5 g/dL (14.0-18.0); LYMPHOCYTES % (AUTO) 5.7 %; MEAN CORPUSCULAR HEMOGLOBIN 33.4 pg (27.0-31.0); MEAN CORPUSCULAR HGB CONC 32.9 g/dL (32.0-36.0); MEAN CORPUSCULAR VOLUME 101.6 fL (80.0-94.0); MEAN PLATELET VOLUME 10.3 fL (7.4-11.4); MONOCYTES % (AUTO) 3.7 %; NEUTROPHILS % (AUTO) 79.6 %; PLT - PLATELET COUNT 172 10^3/uL (130-450); RED BLOOD COUNT 3.14 10^6/uL (4.70-6.10); RED CELL DISTRIBUTION WIDTH 13.2 % (12.0-15.0); WHITE BLOOD COUNT 10.7 x10^3/uL (4.8-10.8)
[2024-03-26 06:01] LABS: ABNORMAL LYMPHS % (MANUAL) 0 %
[2024-03-26 06:03] LABS: CALCIUM 8.1 mg/dL (8.5-10.3); CREATININE 1.9 mg/dL (0.6-1.3); POTASSIUM 3.2 mmol/L (3.5-4.5)
[2024-03-26 06:20] LABS: BAND NEUTROPHILS % (MANUAL) 5 %; DIFFERENTIAL COMMENT MANUAL DIFFERENTIAL; EOSINOPHILS # (MANUAL) 0.4 10^3/uL (0-0.7); LYMPHOCYTES # (MANUAL) 0.5 10^3/uL (1.5-3.5); LYMPHOCYTES % (MANUAL) 5 %; METAMYELOCYTES % (MANUAL) 2 %; MONOCYTES # (MANUAL) 0.4 10^3/uL (0.0-1.0); MYELOCYTES % (MANUAL) 2 %; NEUTROPHILS # (MANUAL) 8.9 10^3/uL (1.5-6.6); PLATELET ESTIMATE, MANUAL NORMAL (130-450,000) (NORMAL); RBC MORPHOLOGY (MULTIPLE) NORMAL APPEARANCE (NORMAL)
--- NOTE | 2024-03-26 06:58 | PROVIDER PROGRESS NOTE ---
Subjective - Prog Note Date Prog Note Date: 03/26/24 Prog Note Time: 06:58 - Subjective Pt reports feeling: No change Subjective: Yesterday the patient had problems with hallucinations and had ongoing issues with atrial fibrillation with RVR. He was given 2 doses of digoxin as well as IV albumin for mild hypotension. This morning he is drowsy and oriented to year, month, location but he does appear debilitated and weak. His heart rate is overall better controlled, ranging 100-110. The patient voices no complaints and states that he feels better. Objective - Vital Signs/Intake & Output Reviewed Vital Signs: Yes Vital Signs: Vital Signs x48h Temp Pulse Resp BP Pulse Ox O2 Flow Rate 03/25/24 23:20 36.4 C L 102 H 20 105/63 96 2 Intake & Output: Intake & Output 03/23/24 03/24/24 03/25/24 03/26/24 23:59 23:59 23:59 23:59 Intake Total 4538 4396.944 3680.00 290.277 Output Total 0186 460 1573 Balance 3188 3436.944 2230.00 290.277 - Objective General Appearance: positive: Moderate distress, Lethargic Eyes Bilateral: positive: Normal inspection, PERRL, EOMI ENT: positive: ENT inspection nml, Pharynx nml, No signs of dehydration Neck: positive: Nml inspection, Thyroid nml, No JVD, Trachea midline Respiratory: positive: No respiratory distress, Breath sounds nml. negative: Wheezes, Rales, Rhonchi Cardiovascular: positive: Irregularly irregular, Tachycardia Abdomen: positive: Non-tender, No organomegaly, Nml bowel sounds Skin: positive: Color nml, No rash, Warm, Dry Extremities: positive: Pedal edema (2+ edema) Neurologic/Psychiatric: positive: Oriented x3, CN's nml (2-12), Motor nml, Other (Lethargic but awakens. Slurred speech due to drowsiness.) - Lab Results Fish Bones: 03/26/24 05:37 03/26/24 05:37 Other Labs: Lab Results x24hrs 03/26/24 03/26/24 03/25/24 Range/Units 05:37 05:37 20:33 WBC 10.7 (4.8-10.8) x10^3/uL RBC 3.14 L (4.70-6.10) 10^6/uL Hgb 10.5 L (14.0-18.0) g/dL Hct 31.9 L (42.0-52.0) % MCV 101.6 H (80.0-94.0) fL MCH 33.4 H (27.0-31.0) pg MCHC 32.9 (32.0-36.0) g/dL RDW 13.2 (12.0-15.0) % Plt Count 172 (130-450) 10^3/uL MPV 10.3 (7.4-11.4) fL Neut # (Auto) Not Reportable Lymph # (Auto) Not Reportable [place] # (Auto) Not Reportable Eos # (Auto) Not Reportable Baso # (Auto) Not Reportable Absolute Nucleated RBC Not Reportable Total Counted 100 Band Neuts % (Manual) 5 (0 - 10) % Abnorm Lymph % (Manual) 0 % Metamyelocytes % 2 H ( - 0) % Myelocytes % 2 H ( - 0) % Nucleated RBC % Not Reportable Neutrophils # (Manual) 8.9 H (1.5-6.6) 10^3/uL Lymphocytes # (Manual) 0.5 L (1.5-3.5) 10^3/uL Monocytes # (Manual) 0.4 (0.0-1.0) 10^3/uL Eosinophils # (Manual) 0.4 (0-0.7) 10^3/uL Basophils # (Manual) 0.0 (0-0.1) 10^3/uL Differential Comment MANUAL DIFFERENTIAL Platelet Estimate NORMAL (130-450,000) (NORMAL) RBC Morph Micro Appear NORMAL APPEARANCE (NORMAL) Sodium 132 L (135-145) mmol/L Potassium 3.2 L (3.5-4.5) mmol/L Chloride 103 (101-111) mmol/L Carbon Dioxide 23 (21-32) mmol/L Anion Gap 6.0 (6-13) BUN 47 H (6-20) mg/dL Creatinine 1.9 H (0.6-1.3) mg/dL Estimated GFR (MDRD) 34 L (>89) Glucose 151 H (74-104) mg/dL POC Whole Bld Glucose 174 H (70 - 100) mg/dL Calcium 8.1 L (8.5-10.3) mg/dL Magnesium 2.0 (1.7-2.3) mg/dL 03/25/24 03/25/24 03/25/24 Range/Units 16:40 13:05 13:00 WBC (4.8-10.8) x10^3/uL RBC (4.70-6.10) 10^6/uL Hgb (14.0-18.0) g/dL Hct (42.0-52.0) % MCV (80.0-94.0) fL MCH (27.0-31.0) pg MCHC (32.0-36.0) g/dL RDW (12.0-15.0) % Plt Count (130-450) 10^3/uL MPV (7.4-11.4) fL Neut # (Auto) Lymph # (Auto) [place] # (Auto) Eos # (Auto) Baso # (Auto) Absolute Nucleated RBC Total Counted Band Neuts % (Manual) (0 - 10) % Abnorm Lymph % (Manual) % Metamyelocytes % ( - 0) % Myelocytes % ( - 0) % Nucleated RBC % Neutrophils # (Manual) (1.5-6.6) 10^3/uL Lymphocytes # (Manual) (1.5-3.5) 10^3/uL Monocytes # (Manual) (0.0-1.0) 10^3/uL Eosinophils # (Manual) (0-0.7) 10^3/uL Basophils # (Manual) (0-0.1) 10^3/uL Differential Comment Platelet Estimate (NORMAL) RBC Morph Micro Appear (NORMAL) Sodium (135-145) mmol/L Potassium (3.5-4.5) mmol/L Chloride (101-111) mmol/L Carbon Dioxide (21-32) mmol/L Anion Gap (6-13) BUN (6-20) mg/dL Creatinine (0.6-1.3) mg/dL Estimated GFR (MDRD) (>89) Glucose (74-104) mg/dL POC Whole Bld Glucose 151 H 174 H 175 H (70 - 100) mg/dL Calcium (8.5-10.3) mg/dL Magnesium (1.7-2.3) mg/dL 03/25/24 03/25/24 Range/Units 11:27 07:26 WBC (4.8-10.8) x10^3/uL RBC (4.70-6.10) 10^6/uL Hgb (14.0-18.0) g/dL Hct (42.0-52.0) % MCV (80.0-94.0) fL MCH (27.0-31.0) pg MCHC (32.0-36.0) g/dL RDW (12.0-15.0) % Plt Count (130-450) 10^3/uL MPV (7.4-11.4) fL Neut # (Auto) Lymph # (Auto) [place]y # (Auto) Eos # (Auto) Baso # (Auto) Absolute Nucleated RBC Total Counted Band Neuts % (Manual) (0 - 10) % Abnorm Lymph % (Manual) % Metamyelocytes % ( - 0) % Myelocytes % ( - 0) % Nucleated RBC % Neutrophils # (Manual) (1.5-6.6) 10^3/uL Lymphocytes # (Manual) (1.5-3.5) 10^3/uL Monocytes # (Manual) (0.0-1.0) 10^3/uL Eosinophils # (Manual) (0-0.7) 10^3/uL Basophils # (Manual) (0-0.1) 10^3/uL Differential Comment Platelet Estimate (NORMAL) RBC Morph Micro Appear (NORMAL) Sodium (135-145) mmol/L Potassium (3.5-4.5) mmol/L Chloride (101-111) mmol/L Carbon Dioxide (21-32) mmol/L Anion Gap (6-13) BUN (6-20) mg/dL Creatinine (0.6-1.3) mg/dL Estimated GFR (MDRD) (>89) Glucose (74-104) mg/dL POC Whole Bld Glucose 160 H 137 H (70 - 100) mg/dL Calcium (8.5-10.3) mg/dL Magnesium (1.7-2.3) mg/dL Sepsis Event Note (H) - Evaluation Current Stage of Sepsis: Resolved Possible source of Sepsis: positive: Pulmonary - Sepsis Criteria Sepsis Criteria: Recorded Temperature greater than 38.3C or Less than 36C, Recorded Heart Rate greater than 90 bpm, Recorded Respiratory Rate greater than 20, WBC count greater than 12,000 or less than 4000, Metabolic: lactate > 2 mmol/L Assessment/Plan - Problem List (1) Metabolic encephalopathy Impression: He has been confused since his presentation, which seems to be a metabolic ence phalopathy due to his acute illness and infectious process (pneumonia/sepsis). Initially was treated with some Ativan for possible alcohol withdrawal but he seemed to be more sedated, dose Ativan and oxycodone were held. An ammonia level, TSH, B12 and head CT have all been unremarkable. 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 -Mentation fluctuates - at times he is improved, other times he has hallucinations. -Continue treating his infectious issues as noted below. -No focal neurologic deficits, but consider MRI if not improved shortly. (2) Severe sepsis Impression: Severe sepsis is secondary to his left-sided pneumonia. He met criteria for severe sepsis due to acute kidney injury as well as altered mental status. -Blood cultures are no growth to date thus far. -Morning cortisol was normal. -Overall his severe sepsis is improving. -He remains borderline hypotensive, but does not appear septic currently. Checking TTE to evaluate further. (3) Pneumonia Impression: His admission chest x-ray appear to be more lobar consolidation and his viral studies were negative. He has not been producing much sputum thus unable to obtain sputum cultures. He was placed on IV ceftriaxone and azithromycin though he did not seem to respond to this. A repeat chest x-ray after admission showed progression of his left lung pneumonia and ceftriaxone was exchanged for cefep dina. He continued to not have a good response and a chest CT was obtained that showed progression of the left upper lobe pneumonia to a multifocal left-sided pneumonia, with some concern for aspiration. He completed 3 days of azithromycin and on 03/22 vancomycin and metronidazole were added. -He seems to be improving with the broadening of his antibiotics as noted above. -Blood cultures are no growth to date. -His MRSA nares swab was negative, thus vancomycin was discontinued as it is unlikely that he has MRSA pneumonia. -Continue cefepime and metronidazole for the time being. -Hypoxia has resolved this morning. (4) Atrial fibrillation with RVR Impression: The patient is on Plavix at home but not oral anticoagulation. His heart rate has been fluctuating during his stay here thus far, frequently having bursts of RVR but also spending time in normal rate. -Resumed metoprolol tartrate at 12.5 mg twice daily. Monitor closely for hypotension. -Received IV Digoxin 250 mcg and 125 mcg pushes yesterday. Not on scheduled digoxin due to underlying renal function. -Keep K > 4 and Mg > 2. -Obtain TTE to evaluate for structural change in heart to account for hypotension, difficulty to control atrial fibrillation. (5) FILIPPO (acute kidney injury) Impression: He has baseline CKD with creatinine around 1.4-1.6 normally. On admission his creatinine was 2.3 which is most likely due to decreased oral intake, prerenal causes from sepsis and dehydration. There could be a small component of contrast-induced nephropathy as well. -Creatinine has improved with IV fluids though remains elevated above his baseline. Might be a new baseline. -Renal ultrasound unremarkable. -CK is unremarkable. -Avoid unnecessary nephrotoxins and renally dose medications as appropriate. -Daily BMP. (6) Physical deconditioning Impression: As a result of his dehydration, decreased oral intake and acute illness with severe sepsis he is now very deconditioned. -PT/OT consulted. -Anticipate SNF placement as he is very deconditioned and his just underwent back surgery 2 weeks ago and can only lift 5 pounds herself at most. (7) Controlled type 2 diabetes mellitus without complication, without long-term current use of insulin Impression: He is [place] by [facility] [place] He used to be seen by Josh Cardozo, then switched his care to our local [facility] and then switched over his care to [facility] [place]. From what I can see in the chart his last A1c with the clinics was 6.8% in 2018. I started him on Lantus 10 units the night of admission plus sliding scale insulin. In the parole board member of March 20 his glucose was in the 50s. He is not eating very much. A1c was 7.8%. For someone his age that is actually acceptable. I stopped the Lantus and now he is only on sliding scale. He is not eating very much. is at the bedside and will occasionally get him to swallow bites of fruit.
[2024-03-26] MEDS: POTASSIUM CHLORIDE 20 MEQ TABLET PO ONE (09:15)
[2024-03-26] MEDS: ALBUMIN 25% 12.5 GM/50 ML VIAL IV STA (10:34)
[2024-03-26] MEDS: POTASSIUM CHLORIDE 20 MEQ/15 ML UDC PO SCH (11:49)
[2024-03-26] MEDS: PSYLLIUM PACKET PO SCH (12:04)
[2024-03-26] MEDS ORDERED: MELATONIN 3 MG TABLET PO PRN (12:33)
[2024-03-26 14:01] LABS: ABG BASE EXCESS -4.4 mmol/L (-2.0-3.0); ABG HCO3 20.2 mmol/L (22.0-26.0); ABG PCO2 36 mmHg (34-45); ABG PH 7.37 (7.35-7.45); ABG TCO2 21.3 MMOL/L (21.0-29.0); ALLEN TEST POSITIVE
[2024-03-26 14:03] LABS: ABG OXYGEN SATURATION 72 % (94-98); ABG PO2 40 mmHg (80-100)
[2024-03-26] MEDS: ALBUMIN 25% 12.5 GM/50 ML VIAL IV ONE (15:55)
[2024-03-26] MEDS ORDERED: GADOTERATE MEGLUMINE 10 MMOL/20 ML VIAL ONE (17:43)
--- NOTE | 2024-03-26 19:21 | MRI Report ---
PROCEDURE: Brain WO INDICATIONS: AMS, evaluate for stroke or inflammatory pathology TECHNIQUE: Noncontrast sagittal FLAIR and axial gradient echo. COMPARISON: CT head 03/22/2024. FINDINGS: Significantly limited exam which was terminated after sagittal FLAIR and gradient echo sequences. Sig nificant motion artifact. Age-related global volume loss and chronic microvascular ischemic changes a re present. No diffusion-weighted imaging was obtained, acute infarct cannot be excluded. No suscepti bility artifact is seen. IMPRESSION: Significantly limited exam as above, terminated early. Diffusion imaging was not obtained, acute infa rct cannot be excluded. Reviewed by: Raffi Brush MD on 03/26/2024 7:19 PM PDT Approved by: Raffi Brush MD on 03/26/2024 7:19 PM PDT Station ID: [id number]
[2024-03-26] MEDS ORDERED: MIRTAZAPINE 15 MG TABLET PO SCH (21:00)
[2024-03-27] MEDS: ACETAMINOPHEN 325 MG TABLET PO PRN (02:12)
[2024-03-27] MEDS: oxyCODONE 5 MG TABLET PO ONE (02:12)
[2024-03-27 06:09] LABS: BASOPHILS % (AUTO) 0.5 %; EOSINOPHILS % (AUTO) 2.9 %; HCT - HEMATOCRIT 30.7 % (42.0-52.0); HGB - HEMOGLOBIN 10.1 g/dL (14.0-18.0); LYMPHOCYTES % (AUTO) 4.4 %; MEAN CORPUSCULAR HEMOGLOBIN 33.6 pg (27.0-31.0); MEAN CORPUSCULAR HGB CONC 32.9 g/dL (32.0-36.0); MEAN PLATELET VOLUME 10.2 fL (7.4-11.4); MONOCYTES % (AUTO) 3.6 %; NEUTROPHILS % (AUTO) 82.7 %; PLT - PLATELET COUNT 184 10^3/uL (130-450); RED BLOOD COUNT 3.01 10^6/uL (4.70-6.10); RED CELL DISTRIBUTION WIDTH 13.4 % (12.0-15.0); WHITE BLOOD COUNT 11.8 x10^3/uL (4.8-10.8)
[2024-03-27 06:19] LABS: ABNORMAL LYMPHS % (MANUAL) 0 %
[2024-03-27 06:21] LABS: CALCIUM 8.2 mg/dL (8.5-10.3); CREATININE 1.8 mg/dL (0.6-1.3); PHOSPHORUS 2.9 mg/dL (2.5-5.0); POTASSIUM 3.7 mmol/L (3.5-4.5)
[2024-03-27 06:46] LABS: BAND NEUTROPHILS % (MANUAL) 5 %; DIFFERENTIAL COMMENT MANUAL DIFFERENTIAL; EOSINOPHILS # (MANUAL) 0.4 10^3/uL (0-0.7); LYMPHOCYTES # (MANUAL) 0.6 10^3/uL (1.5-3.5); LYMPHOCYTES % (MANUAL) 5 %; METAMYELOCYTES % (MANUAL) 1 %; MONOCYTES # (MANUAL) 0.1 10^3/uL (0.0-1.0); MYELOCYTES % (MANUAL) 1 %; NEUTROPHILS # (MANUAL) 10.5 10^3/uL (1.5-6.6); PLATELET ESTIMATE, MANUAL NORMAL (130-450,000) (NORMAL); RBC MORPHOLOGY (MULTIPLE) NORMAL APPEARANCE (NORMAL)
--- NOTE | 2024-03-27 07:26 | PROVIDER PROGRESS NOTE ---
Subjective - Prog Note Date Prog Note Date: 03/27/24 Prog Note Time: 07:25 - Subjective Pt reports feeling: Worse Subjective: Overnight the patient was noted to have irregular periods of breathing and occasional apneic spells. His blood pressure continues to be soft and his heart rate has been fluctuating between 100-120. He has been on 5 L of oxygen which was decreased down to 4 L. A chest x-ray obtained today shows continued pneumonia in the left lung. Overall the patient's clinical status is worsening and at best not improving despite maximal medical therapy. His disorientation is fluctuating however he has not been eating or drinking and is in no shape to do so. The patient's is considering transitioning to more comfort care given his current status but is waiting for other family members to arrive. Objective - Vital Signs/Intake & Output Reviewed Vital Signs: Yes Vital Signs: Vital Signs x48h Temp Pulse Resp BP Pulse Ox O2 Flow Rate 03/27/24 05:30 36.4 C L 111 H 18 95/58 L 95 5 03/27/24 01:05 36.4 C L 101 H 20 117/65 96 5 Intake & Output: Intake & Output 03/24/24 03/25/24 03/26/24 03/27/24 23:59 23:59 23:59 23:59 Intake Total 4396.944 3680.00 2120.000 Output Total 960 1450 2975 725 Balance 3436.944 2230.00 -855.000 -725 - Objective General Appearance: positive: Other (Lethargic, disoriented and appears acutely and chronically ill. He is in moderate distress.) Eyes Bilateral: positive: Normal inspection, PERRL, EOMI ENT: positive: ENT inspection nml, Pharynx nml, Dry mucous membranes Neck: positive: Nml inspection, Thyroid nml, Trachea midline Respiratory: positive: Other (Tachypneic, fair air movement bilaterally, crackles and rhonchi noted in the left lung.) Cardiovascular: positive: Irregularly irregular, Tachycardia, Systolic murmur Abdomen: positive: Non-tender, No organomegaly, Nml bowel sounds Skin: positive: No rash, Dry, Pallor Extremities: positive: Pedal edema (2-3+ edema) Neurologic/Psychiatric: positive: Other (Lethargic and oriented to name and location. No obvious focal neurologic deficit.) - Lab Results Fish Bones: 03/27/24 05:23 03/27/24 05:23 Other Labs: Lab Results x24hrs 03/27/24 03/27/24 03/26/24 Range/Units 05:23 05:23 20:34 WBC 11.8 H (4.8-10.8) x10^3/uL RBC 3.01 L (4.70-6.10) 10^6/uL Hgb 10.1 L (14.0-18.0) g/dL Hct 30.7 L (42.0-52.0) % MCV 102.0 H (80.0-94.0) fL MCH 33.6 H (27.0-31.0) pg MCHC 32.9 (32.0-36.0) g/dL RDW 13.4 (12.0-15.0) % Plt Count 184 (130-450) 10^3/uL MPV 10.2 (7.4-11.4) fL Neut # (Auto) Not Reportable Lymph # (Auto) Not Reportable [place] # (Auto) Not Reportable Eos # (Auto) Not Reportable Baso # (Auto) Not Reportable Absolute Nucleated RBC Not Reportable Total Counted 100 Band Neuts % (Manual) 5 (0 - 10) % Abnorm Lymph % (Manual) 0 % Metamyelocytes % 1 H ( - 0) % Myelocytes % 1 H ( - 0) % Nucleated RBC % Not Reportable Neutrophils # (Manual) 10.5 H (1.5-6.6) 10^3/uL Lymphocytes # (Manual) 0.6 L (1.5-3.5) 10^3/uL Monocytes # (Manual) 0.1 (0.0-1.0) 10^3/uL Eosinophils # (Manual) 0.4 (0-0.7) 10^3/uL Basophils # (Manual) 0.0 (0-0.1) 10^3/uL Differential Comment MANUAL DIFFERENTIAL Platelet Estimate NORMAL (130-450,000) (NORMAL) RBC Morph Micro Appear NORMAL APPEARANCE (NORMAL) Bld Gas Analysis Time Sample Site ABG pH (7.35-7.45) ABG pCO2 (34-45) mmHg ABG pO2 (80-100) mmHg ABG HCO3 (22.0-26.0) mmol/L ABG Total CO2 (21.0-29.0) MMOL/L ABG O2 Saturation (94-98) % ABG Base Excess (-2.0-3.0) mmol/L Gwyn Test Sodium 135 (135-145) mmol/L Potassium 3.7 (3.5-4.5) mmol/L Chloride 106 (101-111) mmol/L Carbon Dioxide 23 (21-32) mmol/L Anion Gap 6.0 (6-13) BUN 44 H (6-20) mg/dL Creatinine 1.8 H (0.6-1.3) mg/dL Estimated GFR (MDRD) 36 L (>89) Glucose 133 H (74-104) mg/dL POC Whole Bld Glucose 138 H (70 - 100) mg/dL Calcium 8.2 L (8.5-10.3) mg/dL Phosphorus 2.9 (2.5-5.0) mg/dL Magnesium 2.0 (1.7-2.3) mg/dL 03/26/24 03/26/24 03/26/24 Range/Units 16:36 13:48 11:23 WBC (4.8-10.8) x10^3/uL RBC (4.70-6.10) 10^6/uL Hgb (14.0-18.0) g/dL Hct (42.0-52.0) % MCV (80.0-94.0) fL MCH (27.0-31.0) pg MCHC (32.0-36.0) g/dL RDW (12.0-15.0) % Plt Count (130-450) 10^3/uL MPV (7.4-11.4) fL Neut # (Auto) Lymph # (Auto) [place] # (Auto) Eos # (Auto) Baso # (Auto) Absolute Nucleated RBC Total Counted Band Neuts % (Manual) (0 - 10) % Abnorm Lymph % (Manual) % Metamyelocytes % ( - 0) % Myelocytes % ( - 0) % Nucleated RBC % Neutrophils # (Manual) (1.5-6.6) 10^3/uL Lymphocytes # (Manual) (1.5-3.5) 10^3/uL Monocytes # (Manual) (0.0-1.0) 10^3/uL Eosinophils # (Manual) (0-0.7) 10^3/uL Basophils # (Manual) (0-0.1) 10^3/uL Differential Comment Platelet Estimate (NORMAL) RBC Morph Micro Appear (NORMAL) Bld Gas Analysis Time 1348 Sample Site RIGHT RADIAL ABG pH 7.37 (7.35-7.45) ABG pCO2 36 (34-45) mmHg ABG pO2 40 L* (80-100) mmHg ABG HCO3 20.2 L (22.0-26.0) mmol/L ABG Total CO2 21.3 (21.0-29.0) MMOL/L ABG O2 Saturation 72 L* (94-98) % ABG Base Excess -4.4 L (-2.0-3.0) mmol/L Gwyn Test POSITIVE Sodium (135-145) mmol/L Potassium (3.5-4.5) mmol/L Chloride (101-111) mmol/L Carbon Dioxide (21-32) mmol/L Anion Gap (6-13) BUN (6-20) mg/dL Creatinine (0.6-1.3) mg/dL Estimated GFR (MDRD) (>89) Glucose (74-104) mg/dL POC Whole Bld Glucose 143 H 146 H (70 - 100) mg/dL Calcium (8.5-10.3) mg/dL Phosphorus (2.5-5.0) mg/dL Magnesium (1.7-2.3) mg/dL 03/26/24 Range/Units 07:55 WBC (4.8-10.8) x10^3/uL RBC (4.70-6.10) 10^6/uL Hgb (14.0-18.0) g/dL Hct (42.0-52.0) % MCV (80.0-94.0) fL MCH (27.0-31.0) pg MCHC (32.0-36.0) g/dL RDW (12.0-15.0) % Plt Count (130-450) 10^3/uL MPV (7.4-11.4) fL Neut # (Auto) Lymph # (Auto) [place] # (Auto) Eos # (Auto) Baso # (Auto) Absolute Nucleated RBC Total Counted Band Neuts % (Manual) (0 - 10) % Abnorm Lymph % (Manual) % Metamyelocytes % ( - 0) % Myelocytes % ( - 0) % Nucleated RBC % Neutrophils # (Manual) (1.5-6.6) 10^3/uL Lymphocytes # (Manual) (1.5-3.5) 10^3/uL Monocytes # (Manual) (0.0-1.0) 10^3/uL Eosinophils # (Manual) (0-0.7) 10^3/uL Basophils # (Manual) (0-0.1) 10^3/uL Differential Comment Platelet Estimate (NORMAL) RBC Morph Micro Appear (NORMAL) Bld Gas Analysis Time Sample Site ABG pH (7.35-7.45) ABG pCO2 (34-45) mmHg ABG pO2 (80-100) mmHg ABG HCO3 (22.0-26.0) mmol/L ABG Total CO2 (21.0-29.0) MMOL/L ABG O2 Saturation (94-98) % ABG Base Excess (-2.0-3.0) mmol/L Gwyn Test Sodium (135-145) mmol/L Potassium (3.5-4.5) mmol/L Chloride (101-111) mmol/L Carbon Dioxide (21-32) mmol/L Anion Gap (6-13) BUN (6-20) mg/dL Creatinine (0.6-1.3) mg/dL Estimated GFR (MDRD) (>89) Glucose (74-104) mg/dL POC Whole Bld Glucose 143 H (70 - 100) mg/dL Calcium (8.5-10.3) mg/dL Phosphorus (2.5-5.0) mg/dL Magnesium (1.7-2.3) mg/dL - Diagnostic Imaging Diagnostic Imaging Comments: Chest X-ray (03/27/24): Persistent dense consolidation of the left lung, with a parapneumonic effusion. Sepsis Event Note (H) - Evaluation Current Stage of Sepsis: Resolved Possible source of Sepsis: positive: Pulmonary - Sepsis Criteria Sepsis Criteria: Recorded Temperature greater than 38.3C or Less than 36C, Recorded Heart Rate greater than 90 bpm, Recorded Respiratory Rate greater than 20, WBC count greater than 12,000 or less than 4000, Metabolic: lactate > 2 mmol/L Assessment/Plan - Problem List (1) Metabolic encephalopathy Impression: He has been confused since his presentation, which seems to be a metabolic encephalopathy due to his acute illness and infectious process (pneumonia/sepsis). Initially was treated with some Ativan for possible alcohol withdrawal but he seemed to be more sedated, dose Ativan and oxycodone were held. An ammonia level, TSH, B12 and head CT have all been unremarkable. 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 -Mentation fluctuates - at times he is improved, other times he has hallucinations. -Continue treating his infectious issues as noted below. -No focal neurologic deficits have been noted. Brain MRI was attempted yesterday, but was non-diagnostic due to motion artifacts. -Overall his mentation and clinical status appears to be progressively wors ening. Family is considering transitioning to Comfort Care Only status. (2) Pneumonia Impression: His admission chest x-ray appear to be more lobar consolidation and his viral studies were negative. He has not been producing much sputum thus unable to obtain sputum cultures. He was placed on IV ceftriaxone and azithromycin though he did not seem to respond to this. A repeat chest x-ray after admission showed progression of his left lung pneumonia and ceftriaxone was exchanged for cefepime. He continued to not have a good response and a chest CT was obtained that showed progression of the left upper lobe pneumonia to a multifocal left- sided pneumonia, with some concern for aspiration. He completed 3 days of azithromycin and on 03/22 vancomycin and metronidazole were added. -He initially seemed to be improving with the antibiotic changes as noted above, but over the past two days he has progressively worsened. -Blood cultures are no growth to date. -Continue cefepime and metronidazole for the time being. -More hypoxic currently than previous. Chest x-ray today shows ongoing dense left sided pneumonia. -As noted above, family is considering transitioning to comfort measures given his poor prognosis. (3) Severe sepsis Impression: Severe sepsis is secondary to his left-sided pneumonia. He met criteria for severe sepsis due to acute kidney injury as well as altered mental status. -Blood cultures are no growth to date thus far. -Morning cortisol was normal. -He remains borderline hypotensive. Starting Midodrine 5 mg TID. (4) Atrial fibrillation with RVR Impression: The patient is on Plavix at home but not oral anticoagulation. His heart rate has been fluctuating during his stay here thus far, frequently having bursts of RVR but also spending time in normal rate. -Resumed metoprolol tartrate at 12.5 mg twice daily. Monitor closely for hypotension. -Received IV Digoxin 250 mcg and 125 mcg pushes 03/25/24. Not on scheduled digoxin due to underlying renal function. -Keep K > 4 and Mg > 2. -TTE earlier this hospitalization was unremarkable. (5) FILIPPO (acute kidney injury) Impression: He has baseline CKD with creatinine around 1.4-1.6 normally. On admission his creatinine was 2.3 which is most likely due to decreased oral intake, prerenal causes from sepsis and dehydration. There could be a small component of contrast-induced nephropathy as well. -Creatinine has improved with IV fluids though remains elevated above his baseline. Might be a new baseline. -Renal ultrasound unremarkable. -CK is unremarkable. -Avoid unnecessary nephrotoxins and renally dose medications as appropriate. -Daily BMP. (6) Physical deconditioning Impression: As a result of his dehydration, decreased oral intake and acute illness with severe sepsis he is now very deconditioned. -PT/OT consulted. -If he improves and survives the hospitalization, he will require SNF placement. (7) Controlled type 2 diabetes mellitus without complication, without long-term current use of insulin Impression: He is followed by [facility] [place]. He used to be seen by Josh Cardozo, then switched his care to our local [facility] and then switched over his care to [facility] [place]. From what I can see in the chart his last A1c with the clinics was 6.8% in 2018. I started him on Lantus 10 units the night of admission plus sliding scale insulin. In the instructor of education of March 20 his glucose was in the 50s. He is not eating very much. A1c was 7.8%. For someone his age that is actually acceptable. I stopped the Lantus and now he is only on sliding scale. He is not eating very much. is at the bedside and will occasionally get him to swallow bites of fruit.
[2024-03-27 07:49] LABS: INR 1.8 (0.8-1.2); PT - PROTHROMBIN TIME 18.8 secs (9.9-12.6)
[2024-03-27 07:57] LABS: PARTIAL THROMBOPLASTIN TIME 37.7 secs (24.9-33.3)
[2024-03-27 08:03] LABS: D-DIMER > 1050.0 ng/mL (200.0-255.0)
[2024-03-27 08:06] LABS: PROCALCITONIN 1.87 ng/mL (<0.5)
[2024-03-27] MEDS: MIDODRINE 2.5 MG TABLET PO SCH (08:16)
--- NOTE | 2024-03-27 08:16 | XRAY Report ---
PROCEDURE: Chest 1V INDICATIONS: Hypoxia TECHNIQUE: One view of the chest was acquired. COMPARISON: None. FINDINGS: Surgical changes and devices: None. Lungs and pleura: Low lung volumes. Diffuse, hazy left-sided airspace opacity. Small left pleural ef fusion. Mediastinum: Mediastinal contours appear normal. Heart size is normal. Bones and chest wall: No suspicious bony lesions. Overlying soft tissues appear unremarkable. IMPRESSION: Persistent dense consolidation of the left lung, with a parapneumonic effusion. Reviewed by: Ellis Moser MD on 03/27/2024 8:15 AM PDT Approved by: Ellis Moser MD on 03/27/2024 8:15 AM PDT Station ID: [id number]
[2024-03-27] MEDS ORDERED: ACETAMINOPHEN 1,000 MG/100 ML 1,000 MG/100 ML BAG IV ONE (13:13)
[2024-03-27] MEDS: ACETAMINOPHEN 1,000 MG/100 ML 1,000 MG/100 ML BAG IV PRN (13:36)
[2024-03-27] MEDS: fentaNYL 100 MCG/2 ML VIAL IVP PRN (16:18)
[2024-03-28 05:45] LABS: BASOPHILS % (AUTO) 0.4 %; EOSINOPHILS % (AUTO) 1.9 %; HCT - HEMATOCRIT 31.9 % (42.0-52.0); HGB - HEMOGLOBIN 10.3 g/dL (14.0-18.0); LYMPHOCYTES % (AUTO) 3.6 %; MEAN CORPUSCULAR HEMOGLOBIN 33.1 pg (27.0-31.0); MEAN CORPUSCULAR HGB CONC 32.3 g/dL (32.0-36.0); MEAN CORPUSCULAR VOLUME 102.6 fL (80.0-94.0); MEAN PLATELET VOLUME 9.9 fL (7.4-11.4); MONOCYTES % (AUTO) 3.9 %; NEUTROPHILS % (AUTO) 84.9 %; PLT - PLATELET COUNT 200 10^3/uL (130-450); RED BLOOD COUNT 3.11 10^6/uL (4.70-6.10); RED CELL DISTRIBUTION WIDTH 13.8 % (12.0-15.0); WHITE BLOOD COUNT 10.9 x10^3/uL (4.8-10.8)
[2024-03-28 05:57] LABS: CALCIUM 8.1 mg/dL (8.5-10.3); CREATININE 1.8 mg/dL (0.6-1.3); MAGNESIUM 1.9 mg/dL (1.7-2.3); POTASSIUM 3.6 mmol/L (3.5-4.5)
[2024-03-28 06:14] LABS: SLIDE REVIEW? Indicated
[2024-03-28 06:15] LABS: ABNORMAL LYMPHS % (MANUAL) 0 %
[2024-03-28 06:20] LABS: BAND NEUTROPHILS % (MANUAL) 6 %; EOSINOPHILS # (MANUAL) 0.2 10^3/uL (0-0.7); LYMPHOCYTES # (MANUAL) 0.4 10^3/uL (1.5-3.5); LYMPHOCYTES % (MANUAL) 4 %; METAMYELOCYTES % (MANUAL) 5 %; MONOCYTES # (MANUAL) 0.3 10^3/uL (0.0-1.0); NEUTROPHILS # (MANUAL) 9.4 10^3/uL (1.5-6.6); RBC MORPHOLOGY (MULTIPLE) NORMAL APPEARANCE (NORMAL)
[2024-03-28 06:21] LABS: PLATELET MORPHOLOGY NORMAL APPEARANCE (NORMAL)
[2024-03-28 06:22] LABS: DIFFERENTIAL COMMENT MANUAL DIFFERENTIAL; PLATELET ESTIMATE, MANUAL NORMAL (130-450,000) (NORMAL); WBC MORPHOLOGY (MULTIPLE) 1+ TOXIC GRANULATION (NORMAL)
--- NOTE | 2024-03-28 07:06 | PROVIDER PROGRESS NOTE ---
Subjective - Prog Note Date Prog Note Date: 03/28/24 Prog Note Time: 07:06 - Subjective Pt reports feeling: Improved Subjective: Overnight the patient did have a brief episode of a heart rate up to 160 but this lasted only 2 seconds. He mostly has been ranging in the 100-115 range. This morning the patient is more alert and coherent compared to yesterday and is asking for food so that he can eat as he reports he is hungry. He also coughed up a large amount of sputum last night and indicates that he feels better after this. He is also asking to have his antibiotics stronger because he is concerned the pneumonia is not improving. This is a more appropriate conversation that he has had for the past several days or maybe for most of the hospitalization. Objective - Vital Signs/Intake & Output Reviewed Vital Signs: Yes Vital Signs: Vital Signs x48h Temp Pulse Resp BP Pulse Ox O2 Flow Rate 03/28/24 04:58 36.4 C L 111 H 30 H 109/64 96 4 03/28/24 00:09 98 26 H 115/77 95 4 Intake & Output: Intake & Output 03/25/24 03/26/24 03/27/24 03/28/24 23:59 23:59 23:59 23:59 Intake Total 3680.00 2120.000 1500 550 Output Total 1450 2975 1750 800 Balance 2230.00 -855.000 -250 -250 - Objective General Appearance: positive: Alert, Mild distress Eyes Bilateral: positive: Normal inspection, PERRL, EOMI ENT: positive: ENT inspection nml, Pharynx nml, Dry mucous membranes Neck: positive: Nml inspection, Thyroid nml, No JVD, Trachea midline Respiratory: positive: No respiratory distress, Rales, Rhonchi. negative: Wheezes Cardiovascular: positive: Irregularly irregular, Tachycardia Abdomen: positive: Non-tender, No organomegaly, Nml bowel sounds. negative: No distention Skin: positive: Dry, Pallor Extremities: positive: Pedal edema Neurologic/Psychiatric: positive: CN's nml (2-12), Motor nml, Sensation nml, Disoriented to time - Lab Results Fish Bones: 03/28/24 05:36 03/28/24 05:36 Other Labs: Lab Results x24hrs 03/28/24 03/28/24 03/27/24 Range/Units 05:36 05:36 20:33 WBC 10.9 H (4.8-10.8) x10^3/uL RBC 3.11 L (4.70-6.10) 10^6/uL Hgb 10.3 L (14.0-18.0) g/dL Hct 31.9 L (42.0-52.0) % MCV 102.6 H (80.0-94.0) fL MCH 33.1 H (27.0-31.0) pg MCHC 32.3 (32.0-36.0) g/dL RDW 13.8 (12.0-15.0) % Plt Count 200 (130-450) 10^3/uL MPV 9.9 (7.4-11.4) fL Neut # (Auto) Not Reportable Lymph # (Auto) Not Reportable Centre # (Auto) Not Reportable Eos # (Auto) Not Reportable Baso # (Auto) Not Reportable Absolute Nucleated RBC Not Reportable Total Counted 100 Band Neuts % (Manual) 6 (0 - 10) % Abnorm Lymph % (Manual) 0 % Metamyelocytes % 5 H ( - 0) % Nucleated RBC % Not Reportable Neutrophils # (Manual) 9.4 H (1.5-6.6) 10^3/uL Lymphocytes # (Manual) 0.4 L (1.5-3.5) 10^3/uL Monocytes # (Manual) 0.3 (0.0-1.0) 10^3/uL Eosinophils # (Manual) 0.2 (0-0.7) 10^3/uL Basophils # (Manual) 0.0 (0-0.1) 10^3/uL Differential Comment MANUAL DIFFERENTIAL Manual Slide Review Indicated WBC Morphology 1+ TOXIC GRANULATION (NORMAL) Platelet Estimate NORMAL (130-450,000) (NORMAL) Platelet Morphology NORMAL APPEARANCE (NORMAL) RBC Morph Micro Appear NORMAL APPEARANCE (NORMAL) PT (9.9-12.6) secs INR (0.8-1.2) APTT (24.9-33.3) secs D-Dimer (200.0-255.0) ng/mL Sodium 137 (135-145) mmol/L Potassium 3.6 (3.5-4.5) mmol/L Chloride 107 (101-111) mmol/L Carbon Dioxide 23 (21-32) mmol/L Anion Gap 7.0 (6-13) BUN 45 H (6-20) mg/dL Creatinine 1.8 H (0.6-1.3) mg/dL Estimated GFR (MDRD) 36 L (>89) Glucose 125 H (74-104) mg/dL POC Whole Bld Glucose 117 H (70 - 100) mg/dL Calcium 8.1 L (8.5-10.3) mg/dL Magnesium 1.9 (1.7-2.3) mg/dL C-Reactive Protein (<0.5) mg/dL B-Natriuretic Peptide (5-100) pg/mL Procalcitonin Immunoas (<0.5) ng/mL 03/27/24 03/27/24 03/27/24 Range/Units 16:33 11:28 07:59 WBC (4.8-10.8) x10^3/uL RBC (4.70-6.10) 10^6/uL Hgb (14.0-18.0) g/dL Hct (42.0-52.0) % MCV (80.0-94.0) fL MCH (27.0-31.0) pg MCHC (32.0-36.0) g/dL RDW (12.0-15.0) % Plt Count (130-450) 10^3/uL MPV (7.4-11.4) fL Neut # (Auto) Lymph # (Auto) Centre # (Auto) Eos # (Auto) Baso # (Auto) Absolute Nucleated RBC Total Counted Band Neuts % (Manual) (0 - 10) % Abnorm Lymph % (Manual) % Metamyelocytes % ( - 0) % Nucleated RBC % Neutrophils # (Manual) (1.5-6.6) 10^3/uL Lymphocytes # (Manual) (1.5-3.5) 10^3/uL Monocytes # (Manual) (0.0-1.0) 10^3/uL Eosinophils # (Manual) (0-0.7) 10^3/uL Basophils # (Manual) (0-0.1) 10^3/uL Differential Comment Manual Slide Review WBC Morphology (NORMAL) Platelet Estimate (NORMAL) Platelet Morphology (NORMAL) RBC Morph Micro Appear (NORMAL) PT (9.9-12.6) secs INR (0.8-1.2) APTT (24.9-33.3) secs D-Dimer (200.0-255.0) ng/mL Sodium (135-145) mmol/L Potassium (3.5-4.5) mmol/L Chloride (101-111) mmol/L Carbon Dioxide (21-32) mmol/L Anion Gap (6-13) BUN (6-20) mg/dL Creatinine (0.6-1.3) mg/dL Estimated GFR (MDRD) (>89) Glucose (74-104) mg/dL POC Whole Bld Glucose 118 H 125 H 126 H (70 - 100) mg/dL Calcium (8.5-10.3) mg/dL Magnesium (1.7-2.3) mg/dL C-Reactive Protein (<0.5) mg/dL B-Natriuretic Peptide (5-100) pg/mL Procalcitonin Immunoas (<0.5) ng/mL 03/27/24 03/27/24 03/27/24 Range/Units 07:40 07:37 07:37 WBC (4.8-10.8) x10^3/uL RBC (4.70-6.10) 10^6/uL Hgb (14.0-18.0) g/dL Hct (42.0-52.0) % MCV (80.0-94.0) fL MCH (27.0-31.0) pg MCHC (32.0-36.0) g/dL RDW (12.0-15.0) % Plt Count (130-450) 10^3/uL MPV (7.4-11.4) fL Neut # (Auto) Lymph # (Auto) Centre # (Auto) Eos # (Auto) Baso # (Auto) Absolute Nucleated RBC Total Counted Band Neuts % (Manual) (0 - 10) % Abnorm Lymph % (Manual) % Metamyelocytes % ( - 0) % Nucleated RBC % Neutrophils # (Manual) (1.5-6.6) 10^3/uL Lymphocytes # (Manual) (1.5-3.5) 10^3/uL Monocytes # (Manual) (0.0-1.0) 10^3/uL Eosinophils # (Manual) (0-0.7) 10^3/uL Basophils # (Manual) (0-0.1) 10^3/uL Differential Comment Manual Slide Review WBC Morphology (NORMAL) Platelet Estimate (NORMAL) Platelet Morphology (NORMAL) RBC Morph Micro Appear (NORMAL) PT 18.8 H (9.9-12.6) secs INR 1.8 H (0.8-1.2) APTT 37.7 H (24.9-33.3) secs D-Dimer > 1050.0 H (200.0-255.0) ng/mL Sodium (135-145) mmol/L Potassium (3.5-4.5) mmol/L Chloride (101-111) mmol/L Carbon Dioxide (21-32) mmol/L Anion Gap (6-13) BUN (6-20) mg/dL Creatinine (0.6-1.3) mg/dL Estimated GFR (MDRD) (>89) Glucose (74-104) mg/dL POC Whole Bld Glucose (70 - 100) mg/dL Calcium (8.5-10.3) mg/dL Magnesium (1.7-2.3) mg/dL C-Reactive Protein 7.0 H (<0.5) mg/dL B-Natriuretic Peptide 815 H (5-100) pg/mL Procalcitonin Immunoas 1.87 H (<0.5) ng/mL - Diagnostic Imaging Diagnostic Imaging Comments: Chest X-ray (03/27/24): Persistent dense consolidation of the left lung, with a parapneumonic effusion. Sepsis Event Note (H) - Evaluation Current Stage of Sepsis: Resolved Possible source of Sepsis: positive: Pulmonary - Sepsis Criteria Sepsis Criteria: Recorded Temperature greater than 38.3C or Less than 36C, Recorded Heart Rate greater than 90 bpm, Recorded Respiratory Rate greater than 20, WBC count greater than 12,000 or less than 4000, Metabolic: lactate > 2 mmol/L Assessment/Plan - Problem List (1) Metabolic encephalopathy Impression: He has been confused since his presentation, which seems to be a metabolic encephalopathy due to his acute illness and infectious process (pneumonia/sepsi s). Initially was treated with some Ativan for possible alcohol withdrawal but he seemed to be more sedated, dose Ativan and oxycodone were held. An ammonia level, TSH, B12 and head CT have all been unremarkable. He has been responding to antibiotics in the sense of no ongoing fevers and his white blood cell count is better, and he has no meningismus, thus a primary [employer] infection is unlikely. -Mentation fluctuates - at times he is improved, other times he has hallucinations. -Continue treating his infectious issues as noted below. -No focal neurologic deficits have been noted. Brain MRI was attempted, but was non-diagnostic due to motion artifacts. -Today he is much more alert and appropriate in his conversations. Yesterday family wanted to give another 24-48 hours of therapy to assess response prior to considering comfort care. (2) Pneumonia Impression: His admission chest x-ray appear to be more lobar consolidation and his viral studies were negative. He has not been producing much sputum thus unable to obtain sputum cultures. He was placed on IV ceftriaxone and azithromycin though he did not seem to respond to this. A repeat chest x-ray after admission showed progression of his left lung pneumonia and ceftriaxone was exchanged for cefepime. He continued to not have a good response and a chest CT was obtained that showed progression of the left upper lobe pneumonia to a multifocal left- sided pneumonia, with some concern for aspiration noted on CT (not original presentation). He completed 3 days of azithromycin and on 03/22 vancomycin and metronidazole were added. Vancomycin was subsequently discontinued when MRSA swab was negative. Despite several days of Cefepime and Metronidazole, his WBC is still elevated, his BP is low and chest x-ray showed continued left sided pneumonia. -He continues to not respond to current antimicrobial therapy as noted above. -Blood cultures are no growth to date. -Will change antibiotics to Linezolid and Meropenem to cover resistant organisms. -Attempt to get a sputum culture now that he is producing some sputum. -If no improvement in 24-48 hours, would consider palliative care/comfort care. (3) Acute respiratory failure with hypoxia Impression: Secondary to his pneumonia. On 03/26 an ABG was checked off oxygen, which confirmed hypoxia and he required 4-5 liters [place] oxygen since then. -Continue treating pneumonia as noted above. -D-Dimer was checked and significantly elevated. Would not be inclined to obtain CTA Chest given borderline renal function. Will place on empiric therapeutic Lovenox. -His BNP is also elevated, with increased peripheral edema and scrotal edema. Will start 20 mg IV lasix today. (4) Severe sepsis Impression: Severe sepsis is secondary to his left-sided pneumonia. He met criteria for severe sepsis due to acute kidney injury as well as altered mental status. -Blood cultures are no growth to date thus far. -Morning cortisol was normal. -He remains borderline hypotensive. Started Midodrine 5 mg TID on 03/27. (5) Atrial fibrillation with RVR Impression: The patient is on Plavix at home but not oral anticoagulation. His heart rate has been fluctuating during his stay here thus far, frequently having bursts of RVR but also spending time in normal rate. -Received IV Digoxin 250 mcg and 125 mcg pushes 03/25/24. Not on scheduled digoxin due to underlying renal function. -Keep K > 4 and Mg > 2. -TTE earlier this hospitalization was unremarkable. -Resumed metoprolol tartrate at 12.5 mg twice daily (had been held due to hypotension). If BP increases with Midodrine, can increase Metoprolol to help with the heart rate. (6) FILIPPO (acute kidney injury) Impression: He has baseline CKD with creatinine around 1.4-1.6 normally. On admission his creatinine was 2.3 which is most likely due to decreased oral intake, prerenal causes from sepsis and dehydration. There could be a small component of contrast-induced nephropathy as well. -Creatinine improved though remains elevated above his baseline. Might be a new baseline. -Renal ultrasound unremarkable. -CK is unremarkable. -Avoid unnecessary nephrotoxins and renally dose medications as appropriate. -Daily BMP. (7) Physical deconditioning Impression: As a result of his dehydration, decreased oral intake and acute illness with severe sepsis he is now very deconditioned. -PT/OT consulted. -If he improves and survives the hospitalization, he will require SNF placement. (8) Controlled type 2 diabetes mellitus without complication, without long-term current use of insulin Impression: He is followed by [facility]. His hemoglobin A1c is 7.8%. He initially was on Lantus during the start of the hospitalization but due to his poor diet and poor oral intake this has been discontinued. -Continue sliding scale insulin for the time being.
[2024-03-28] MEDS ORDERED: SODIUM CHLORIDE 0.9% IV SCH (08:00)
[2024-03-28] MEDS ORDERED: MEROPENEM IV SCH (08:00)
[2024-03-28] MEDS ORDERED: MEROPENEM 2 GM in SODIUM CHLORIDE 0.9% MINIBAG 100 ML IV SCH (09:00)
[2024-03-28] MEDS: LINEZOLID 600 MG/300 ML 600 MG/300 ML BAG IV SCH (10:32)
[2024-03-28] MEDS: ENOXAPARIN 100 MG/ML SYRINGE SUBQ SCH (10:43)
[2024-03-28] MEDS: FUROSEMIDE 20 MG/2 ML VIAL IVP SCH (10:44)
[2024-03-28] MEDS: POTASSIUM CHLOR 10 MEQ/100 ML 10 MEQ/100 ML BAG IV SCH (11:10)
[2024-03-28] MEDS: MEROPENEM 2 GM in SODIUM CHLORIDE 0.9% MINIBAG 100 ML IV SCH (11:45)
[2024-03-28] MEDS: LIDOCAINE 2% URO-JET 5 ML SYRINGE UR PRN (14:01)
--- NOTE | 2024-03-28 21:44 | Ultrasound Report ---
PROCEDURE: Abdomen Limited INDICATIONS: Evaluate for ascites TECHNIQUE: Real-time focused scanning was performed of the abdomen, with image documentation. COMPARISONS: None. FINDINGS: Abdominal ascites is seen within all 4 quadrants. IMPRESSION: Abdominal ascites. Reviewed by: Daisy Walters MD, PhD on 03/28/2024 9:42 PM PDT Approved by: Daisy Walters MD, PhD on 03/28/2024 9:42 PM PDT Station ID: [id number]
[2024-03-29] MEDS: ZINC OXIDE 20% OINT 30 GM TUBE TOP PRN (01:56)
[2024-03-29 06:12] LABS: BASOPHILS % (AUTO) 0.4 %; EOSINOPHILS % (AUTO) 2.4 %; HCT - HEMATOCRIT 31.9 % (42.0-52.0); HGB - HEMOGLOBIN 10.6 g/dL (14.0-18.0); LYMPHOCYTES % (AUTO) 4.7 %; MEAN CORPUSCULAR HEMOGLOBIN 34.1 pg (27.0-31.0); MEAN CORPUSCULAR HGB CONC 33.2 g/dL (32.0-36.0); MEAN CORPUSCULAR VOLUME 102.6 fL (80.0-94.0); MEAN PLATELET VOLUME 9.7 fL (7.4-11.4); MONOCYTES % (AUTO) 5.3 %; NEUTROPHILS % (AUTO) 81.1 %; PLT - PLATELET COUNT 216 10^3/uL (130-450); RED BLOOD COUNT 3.11 10^6/uL (4.70-6.10); WHITE BLOOD COUNT 9.6 x10^3/uL (4.8-10.8)
[2024-03-29 06:17] LABS: ABNORMAL LYMPHS % (MANUAL) 0 %; BAND NEUTROPHILS % (MANUAL) 0 %
[2024-03-29 06:24] LABS: ALBUMIN 2.5 g/dL (3.2-5.5); BILIRUBIN,DIRECT 0.38 mg/dL (0.03-0.18); BILIRUBIN,TOTAL 0.8 mg/dL (0.2-1.0); CREATININE 1.9 mg/dL (0.6-1.3); MAGNESIUM 1.9 mg/dL (1.7-2.3); POTASSIUM 3.3 mmol/L (3.5-4.5); TOTAL PROTEIN 5.3 g/dL (6.4-8.9)
[2024-03-29 06:51] LABS: EOSINOPHILS # (MANUAL) 0.4 10^3/uL (0-0.7); LYMPHOCYTES # (MANUAL) 0.5 10^3/uL (1.5-3.5); LYMPHOCYTES % (MANUAL) 5 %; METAMYELOCYTES % (MANUAL) 1 %; MONOCYTES # (MANUAL) 0.5 10^3/uL (0.0-1.0); MYELOCYTES % (MANUAL) 1 %; NEUTROPHILS # (MANUAL) 8.1 10^3/uL (1.5-6.6); PLATELET MORPHOLOGY NORMAL APPEARANCE (NORMAL); RBC MORPHOLOGY (MULTIPLE) 2+ MACROCYTOSIS (NORMAL)
[2024-03-29 06:52] LABS: DIFFERENTIAL COMMENT MANUAL DIFFERENTIAL; PLATELET ESTIMATE, MANUAL NORMAL (130-450,000) (NORMAL); WBC MORPHOLOGY (MULTIPLE) NORMAL APPEARANCE (NORMAL)
--- NOTE | 2024-03-29 07:09 | PROVIDER PROGRESS NOTE ---
Subjective - Prog Note Date Prog Note Date: 03/29/24 Prog Note Time: 07:09 - Subjective Pt reports feeling: No change Subjective: No significant events occurred overnight. This morning he was drowsy but did awake and interact appropriately. He indicates that he feels weak in general and still having pain in his lower abdomen and scrotum. When advised that we need to get some nutrition into him, possibly via an NG tube, he indicates he does not want an NG tube. He would be open to TPN however he would have to get better access prior to that. His blood pressure and heart rate overall have improved and his white blood cell count is improving after changing his antibiotics. His abdominal ultrasound did show ascites. Objective - Vital Signs/Intake & Output Reviewed Vital Signs: Yes Vital Signs: Vital Signs x48h Temp Pulse Resp BP Pulse Ox O2 Flow Rate 03/29/24 05:52 36.6 C 100 22 111/71 93 3 03/29/24 01:45 36.4 C L 121 H 22 91/67 96 3 Intake & Output: Intake & Output 03/26/24 03/27/24 03/28/24 03/29/24 23:59 23:59 23:59 23:59 Intake Total 2120.000 1500 2443.333 Output Total 2975 1750 2500 700 Balance -855.000 -250 -56.667 -700 - Objective General Appearance: positive: Other (He is drowsy/lethargic but awakens to voice stimulation and is appropriate. He appears acutely and chronically ill but is not in any active distress at the time of my evaluation) Eyes Bilateral: positive: Normal inspection, PERRL, EOMI ENT: positive: ENT inspection nml, Pharynx nml, Dry mucous membranes Neck: positive: Nml inspection, Thyroid nml, No JVD, Trachea midline Respiratory: positive: Other (He is in no respiratory distress and has good air movement on the right aside from decreased air movement in the right base. His left lung does have crackles and coarse breath sounds.) Cardiovascular: positive: Irregularly irregular, Tachycardia, Systolic murmur Abdomen: positive: Non-tender, Nml bowel sounds, Other (Distended with fluid wave.) Skin: positive: Warm, Dry, Pallor Extremities: positive: Pedal edema Neurologic/Psychiatric: positive: Other (He is lethargic but when awoken he is oriented to year, place, situation. He has no focal neurologic deficit but is diffusely weak in all extremities to the point that he can hardly do any movements. Downgoing Babinski bilaterally. Cranial nerves II through XII grossly intact.) - Lab Results Fish Bones: 03/29/24 05:57 03/29/24 05:57 Other Labs: Lab Results x24hrs 03/29/24 03/29/24 03/29/24 Range/Units 05:57 05:57 05:57 WBC 9.6 (4.8-10.8) x10^3/uL RBC 3.11 L (4.70-6.10) 10^6/uL Hgb 10.6 L (14.0-18.0) g/dL Hct 31.9 L (42.0-52.0) % MCV 102.6 H (80.0-94.0) fL MCH 34.1 H (27.0-31.0) pg MCHC 33.2 (32.0-36.0) g/dL RDW 14.0 (12.0-15.0) % Plt Count 216 (130-450) 10^3/uL MPV 9.7 (7.4-11.4) fL Neut # (Auto) Not Reportable Lymph # (Auto) Not Reportable Dickens # (Auto) Not Reportable Eos # (Auto) Not Reportable Baso # (Auto) Not Reportable Absolute Nucleated RBC Not Reportable Total Counted 100 Band Neuts % (Manual) 0 (0 - 10) % Abnorm Lymph % (Manual) 0 % Metamyelocytes % 1 H ( - 0) % Myelocytes % 1 H ( - 0) % Nucleated RBC % Not Reportable Neutrophils # (Manual) 8.1 H (1.5-6.6) 10^3/uL Lymphocytes # (Manual) 0.5 L (1.5-3.5) 10^3/uL Monocytes # (Manual) 0.5 (0.0-1.0) 10^3/uL Eosinophils # (Manual) 0.4 (0-0.7) 10^3/uL Basophils # (Manual) 0.0 (0-0.1) 10^3/uL Differential Comment MANUAL DIFFERENTIAL WBC Morphology NORMAL APPEARANCE (NORMAL) Platelet Estimate NORMAL (130-450,000) (NORMAL) Platelet Morphology NORMAL APPEARANCE (NORMAL) RBC Morph Micro Appear 2+ MACROCYTOSIS (NORMAL) Sodium 137 (135-145) mmol/L Potassium 3.3 L (3.5-4.5) mmol/L Chloride 106 (101-111) mmol/L Carbon Dioxide 26 (21-32) mmol/L Anion Gap 5.0 L (6-13) BUN 44 H (6-20) mg/dL Creatinine 1.9 H (0.6-1.3) mg/dL Estimated GFR (MDRD) 34 L (>89) Glucose 176 H (74-104) mg/dL POC Whole Bld Glucose (70 - 100) mg/dL Calcium 8.0 L (8.5-10.3) mg/dL Magnesium 1.9 (1.7-2.3) mg/dL Total Bilirubin 0.8 (0.2-1.0) mg/dL Direct Bilirubin 0.38 H (0.03-0.18) mg/dL AST 39 (10-42) IU/L ALT 27 (10-60) IU/L Alkaline Phosphatase 183 H (42-121) IU/L Ammonia 26.2 (18-72) umol/L Total Protein 5.3 L (6.4-8.9) g/dL Albumin 2.5 L (3.2-5.5) g/dL Globulin 2.8 (2.1-4.2) g/dL 03/28/24 03/28/24 03/28/24 Range/Units 20:46 16:48 11:12 WBC (4.8-10.8) x10^3/uL RBC (4.70-6.10) 10^6/uL Hgb (14.0-18.0) g/dL Hct (42.0-52.0) % MCV (80.0-94.0) fL MCH (27.0-31.0) pg MCHC (32.0-36.0) g/dL RDW (12.0-15.0) % Plt Count (130-450) 10^3/uL MPV (7.4-11.4) fL Neut # (Auto) Lymph # (Auto) Dickens # (Auto) Eos # (Auto) Baso # (Auto) Absolute Nucleated RBC Total Counted Band Neuts % (Manual) (0 - 10) % Abnorm Lymph % (Manual) % Metamyelocytes % ( - 0) % Myelocytes % ( - 0) % Nucleated RBC % Neutrophils # (Manual) (1.5-6.6) 10^3/uL Lymphocytes # (Manual) (1.5-3.5) 10^3/uL Monocytes # (Manual) (0.0-1.0) 10^3/uL Eosinophils # (Manual) (0-0.7) 10^3/uL Basophils # (Manual) (0-0.1) 10^3/uL Differential Comment WBC Morphology (NORMAL) Platelet Estimate (NORMAL) Platelet Morphology (NORMAL) RBC Morph Micro Appear (NORMAL) Sodium (135-145) mmol/L Potassium (3.5-4.5) mmol/L Chloride (101-111) mmol/L Carbon Dioxide (21-32) mmol/L Anion Gap (6-13) BUN (6-20) mg/dL Creatinine (0.6-1.3) mg/dL Estimated GFR (MDRD) (>89) Glucose (74-104) mg/dL POC Whole Bld Glucose 232 H 151 H 163 H (70 - 100) mg/dL Calcium (8.5-10.3) mg/dL Magnesium (1.7-2.3) mg/dL Total Bilirubin (0.2-1.0) mg/dL Direct Bilirubin (0.03-0.18) mg/dL AST (10-42) IU/L ALT (10-60) IU/L Alkaline Phosphatase (42-121) IU/L Ammonia (18-72) umol/L Total Protein (6.4-8.9) g/dL Albumin (3.2-5.5) g/dL Globulin (2.1-4.2) g/dL 03/28/24 Range/Units 07:35 WBC (4.8-10.8) x10^3/uL RBC (4.70-6.10) 10^6/uL Hgb (14.0-18.0) g/dL Hct (42.0-52.0) % MCV (80.0-94.0) fL MCH (27.0-31.0) pg MCHC (32.0-36.0) g/dL RDW (12.0-15.0) % Plt Count (130-450) 10^3/uL MPV (7.4-11.4) fL Neut # (Auto) Lymph # (Auto) Dickens # (Auto) Eos # (Auto) Baso # (Auto) Absolute Nucleated RBC Total Counted Band Neuts % (Manual) (0 - 10) % Abnorm Lymph % (Manual) % Metamyelocytes % ( - 0) % Myelocytes % ( - 0) % Nucleated RBC % Neutrophils # (Manual) (1.5-6.6) 10^3/uL Lymphocytes # (Manual) (1.5-3.5) 10^3/uL Monocytes # (Manual) (0.0-1.0) 10^3/uL Eosinophils # (Manual) (0-0.7) 10^3/uL Basophils # (Manual) (0-0.1) 10^3/uL Differential Comment WBC Morphology (NORMAL) Platelet Estimate (NORMAL) Platelet Morphology (NORMAL) RBC Morph Micro Appear (NORMAL) Sodium (135-145) mmol/L Potassium (3.5-4.5) mmol/L Chloride (101-111) mmol/L Carbon Dioxide (21-32) mmol/L Anion Gap (6-13) BUN (6-20) mg/dL Creatinine (0.6-1.3) mg/dL Estimated GFR (MDRD) (>89) Glucose (74-104) mg/dL POC Whole Bld Glucose 120 H (70 - 100) mg/dL Calcium (8.5-10.3) mg/dL Magnesium (1.7-2.3) mg/dL Total Bilirubin (0.2-1.0) mg/dL Direct Bilirubin (0.03-0.18) mg/dL AST (10-42) IU/L ALT (10-60) IU/L Alkaline Phosphatase (42-121) IU/L Ammonia (18-72) umol/L Total Protein (6.4-8.9) g/dL Albumin (3.2-5.5) g/dL Globulin (2.1-4.2) g/dL - Diagnostic Imaging Diagnostic Imaging Comments: Chest X-ray (03/27/24): Persistent dense consolidation of the left lung, with a parapneumonic effusion. Sepsis Event Note (H) - Evaluation Current Stage of Sepsis: Resolved Possible source of Sepsis: positive: Pulmonary - Sepsis Criteria Sepsis Criteria: Recorded Temperature greater than 38.3C or Less than 36C, Recorded Heart Rate greater than 90 bpm, Recorded Respiratory Rate greater than 20, WBC count greater than 12,000 or less than 4000, Metabolic: lactate > 2 mmol/L Assessment/Plan - Problem List (1) Metabolic encephalopathy Impression: He has been confused since his presentation, which seems to be a metabolic encephalopathy due to his acute illness and infectious process (pneumonia/sepsis). Initially was treated with some Ativan for possible alcohol withdrawal but he seemed to be more sedated, dose Ativan and oxycodone were held. An ammonia level, TSH, B12 and head CT have all been unremarkable. He has been responding to antibiotics in the sense of no ongoing fevers and his white blood cell count is better, and he has no meningismus, thus a primary BRAKE RIDER infection is unlikely. -Mentation fluctuates - at times he is improved, other times he has hallucinations. -Continue treating his infectious issues as noted below. -No focal neurologic deficits have been noted. Brain MRI was attempted, but was non-diagnostic due to motion artifacts. -Repeat ammonia level was normal. -Will need to work on nutritional aspects of his care as this may be limiting his clinical improvement. He does not want an NG tube and he is not a candidate for PEG due to ascites in addition to the fact his decreased PO intake should be temporary. May need to consider PICC placement tomorrow for TPN. (2) Pneumonia Impression: His admission chest x-ray appear to be more lobar consolidation and his viral studies were negative. He has not been producing much sputum thus unable to obtain sputum cultures. He was placed on IV ceftriaxone and azithromycin though he did not seem to respond to this. A repeat chest x-ray after admission showed progression of his left lung pneumonia and ceftriaxone was exchanged for cefe pime. He continued to not have a good response and a chest CT was obtained that showed progression of the left upper lobe pneumonia to a multifocal left-sided pneumonia, with some concern for aspiration noted on CT (not original presentation). He completed 3 days of azithromycin and on 03/22 vancomycin and metronidazole were added. Vancomycin was subsequently discontinued when MRSA swab was negative. Despite several days of Cefepime and Metronidazole, his WBC is still elevated, his BP is low and chest x-ray showed continued left sided pneumonia. -He continues to not respond to current antimicrobial therapy as noted above. -Blood cultures are no growth to date. -Changed antibiotics to Linezolid and Meropenem on 03/28 to cover resistant organisms. -Attempt to get a sputum culture now that he is producing some sputum. -Clinically seems improved to a small extent. Will continue ongoing care. (3) Acute respiratory failure with hypoxia Impression: Secondary to his pneumonia. On 03/26 an ABG was checked off oxygen, which confirmed hypoxia and he required 4-5 liters [place] oxygen since then. -Continue treating pneumonia as noted above. -D-Dimer was checked and significantly elevated. Would not be inclined to obtain CTA Chest given borderline renal function. Started on empiric therapeutic Lovenox. -His BNP is also elevated, with increased peripheral edema, ascites and scrotal edema. Will increase IV lasix to 40 mg daily today (started 20 mg on 03/28). (4) Severe sepsis Impression: Severe sepsis is secondary to his left-sided pneumonia. He met criteria for severe sepsis due to acute kidney injury as well as altered mental status. -Blood cultures are no growth to date thus far. -Morning cortisol was normal. -Started Midodrine 5 mg TID on 03/27, currently with some improvement in his BP. Will increase Midodrine to 10 mg TID. (5) Cirrhosis of liver with ascites Impression: Noted to have a cirrhotic morphology of his liver on imaging from admission. Since admission he has had development of increased abdominal distention in the setting of receiving significant IV fluids due to his ongoing hypotension and sepsis. -Abdominal ultrasound performed yesterday confirms that he has ascites, which is evident on exam. -Continue IV Lasix as noted above. -Will need to try a diagnostic and possibly therapeutic paracentesis to rule out SBP, however the antibiotic regimen he is on currently would cover organisms appropriately. -Once he stabilizes further, could consider adding spironolactone but this would have to be monitored closely given his renal function. Qualifiers: Hepatic cirrhosis type: unspecified hepatic cirrhosis Qualified Code(s): K74.60 - Unspecified cirrhosis of liver; R18.8 - Other ascites (6) Atrial fibrillation with RVR Impression: The patient is on Plavix at home but not oral anticoagulation. His heart rate has been fluctuating during his stay here thus far, frequently having bursts of RVR but also spending time in normal rate. -Received IV Digoxin 250 mcg and 125 mcg pushes 03/25/24. Not on scheduled digoxin due to underlying renal function. -Keep K > 4 and Mg > 2. Receiving IV potassium chloride today. -TTE earlier this hospitalization was unremarkable. -Continue metoprolol tartrate at 12.5 mg twice daily (had been held due to hypotension, but resumed on 03/27). Unable to increase dose further yet, but hopefully with increased dose of Midodrine we can increase Metoprolol to help with the heart rate. Could consider amiodarone, but he had not been on long- term anticoagulation previously. -On therapeutic lovenox as noted above. (7) FILIPPO (acute kidney injury) Impression: He has baseline CKD with creatinine around 1.4-1.6 normally. On admission his creatinine was 2.3 which is most likely due to decreased oral intake, prerenal causes from sepsis and dehydration. There could be a small component of contrast-induced nephropathy as well. -Creatinine improved though remains elevated above his baseline. Likely at a new baseline. -Renal ultrasound unremarkable. -CK is unremarkable. -Avoid unnecessary nephrotoxins and renally dose medications as appropriate. -Daily BMP. (8) Physical deconditioning Impression: As a result of his dehydration, decreased oral intake and acute illness with severe sepsis he is now very deconditioned. -PT/OT consulted. -If he improves and survives the hospitalization, he will require SNF placement. -As noted above we will need to initiate alternative modes of nutrition as he is unable to take adequate oral caloric intake. Once he gets nutrition this should hopefully help his physical deconditioning. (9) Controlled type 2 diabetes mellitus without complication, without long-term current use of insulin Impression: He is followed by [facility]. His hemoglobin A1c is 7.8%. He initially was on Lantus during the start of the hospitalization but due to his poor diet and poor oral intake this has been discontinued. -Continue sliding scale insulin for the time being.
[2024-03-29] MEDS: POTASSIUM CHLOR 10 MEQ/100 ML 10 MEQ/100 ML BAG IV SCH (08:32)
[2024-03-29] MEDS: MIDODRINE 2.5 MG TABLET PO SCH (08:35)
[2024-03-29] MEDS: FUROSEMIDE 20 MG/2 ML VIAL IVP SCH (09:48)
[2024-03-29] MEDS: fentaNYL 100 MCG/2 ML VIAL IVP ONE (23:36)
[2024-03-30] MEDS: PANTOPRAZOLE 40 MG VIAL IV SCH (00:03)
[2024-03-30 00:04] LABS: HGB - HEMOGLOBIN 9.3 g/dL (14.0-18.0)
[2024-03-30] MEDS: SODIUM CHLORIDE 0.9% 1,000 ML IV ONE (02:03)
[2024-03-30] MEDS: BACLOFEN 10 MG TABLET PO PRN (04:22)
[2024-03-30 05:35] LABS: BASOPHILS % (AUTO) 0.4 %; EOSINOPHILS # (AUTO) 0.2 10^3/uL (0.0-0.7); EOSINOPHILS % (AUTO) 1.6 %; HCT - HEMATOCRIT 27.6 % (42.0-52.0); HGB - HEMOGLOBIN 8.7 g/dL (14.0-18.0); LYMPHOCYTES # (AUTO) 0.8 10^3/uL (1.5-3.5); LYMPHOCYTES % (AUTO) 7.8 %; MEAN CORPUSCULAR HEMOGLOBIN 32.8 pg (27.0-31.0); MEAN CORPUSCULAR HGB CONC 31.5 g/dL (32.0-36.0); MEAN CORPUSCULAR VOLUME 104.2 fL (80.0-94.0); MEAN PLATELET VOLUME 9.7 fL (7.4-11.4); MONOCYTES # (AUTO) 0.5 10^3/uL (0.0-1.0); MONOCYTES % (AUTO) 4.8 %; NEUTROPHILS # (AUTO) 8.5 10^3/uL (1.5-6.6); NEUTROPHILS % (AUTO) 80.7 %; PLT - PLATELET COUNT 251 10^3/uL (130-450); RED BLOOD COUNT 2.65 10^6/uL (4.70-6.10); RED CELL DISTRIBUTION WIDTH 14.3 % (12.0-15.0); WHITE BLOOD COUNT 10.6 x10^3/uL (4.8-10.8)
[2024-03-30 05:52] LABS: CALCIUM 7.6 mg/dL (8.5-10.3); CREATININE 2.1 mg/dL (0.6-1.3); MAGNESIUM 1.7 mg/dL (1.7-2.3); POTASSIUM 3.7 mmol/L (3.5-4.5)
--- NOTE | 2024-03-30 07:09 | PROVIDER PROGRESS NOTE ---
Subjective - Prog Note Date Prog Note Date: 03/30/24 Prog Note Time: 10:20 - Subjective Subjective: Overnight the patient developed bloody bowel movements and this morning is more hypotensive. His lovenox was discontinued (last dose was 03/29 at 9am) and he was placed on IV protonix 40 mg daily. Since then, his hemoglobin has dropped from 10.6 --> 8.7, though we have not witnessed ongoing GI bleeding. He denies any abdominal pain. He has also developed hiccups and is receiving Baclofen PRN for those without much effect. Overall he reports feeling worse in general. He is drowsy, which is his typical baseline most days, but was oriented to year, location, month and situation (knows he was originally admitted for pneumonia). Objective - Vital Signs/Intake & Output Reviewed Vital Signs: Yes Vital Signs: Vital Signs x48h Temp Pulse Resp BP BP Pulse Ox O2 Flow Rate 03/30/24 05:08 37.1 C 71 20 95/68 97 2 03/30/24 04:04 36.5 C 109 H 21 100/59 L 97 2 03/30/24 01:00 111 H 22 83/55 L 95 2 03/29/24 23:17 37.0 C 103 H 23 93/53 L 95 2 03/29/24 23:15 2 Intake & Output: Intake & Output 03/27/24 03/28/24 03/29/24 03/30/24 23:59 23:59 23:59 23:59 Intake Total 1500 2443.333 2145 200 Output Total 1750 2500 4300 400 Balance -250 -56.667 -2155 -200 - Objective General Appearance: positive: Other (He is drowsy/lethargic but awakens to voice stimulation and is appropriate. He appears acutely and chronically ill, hiccuping frequently. No active distress.) Eyes Bilateral: positive: Normal inspection, PERRL, EOMI ENT: positive: ENT inspection nml, Pharynx nml, Dry mucous membranes Neck: positive: Nml inspection, Thyroid nml, No JVD, Trachea midline Respiratory: positive: Other (He is in no respiratory distress and has good air movement on the right aside from decreased air movement in the right base. His left lung does have crackles and coarse breath sounds.) Cardiovascular: positive: Irregularly irregular, Tachycardia, Systolic murmur Abdomen: positive: Other (Distended with fluid wave, somewhat firm. Overall non- tender, no guarding/rebound. Positive bowel sounds.) Skin: positive: Warm, Dry, Pallor Extremities: positive: Other (Has 2-3+ peripheral edema and mild scrotal edema.) Neurologic/Psychiatric: positive: Other (He is lethargic but when awoken he is oriented to year, place, situation. He has no focal neurologic deficit but is diffusely weak in all extremities to the point that he can hardly do any movements. Downgoing Babinski bilaterally. Cranial nerves II through XII grossly intact.) - Lab Results Fish Bones: 03/30/24 05:11 03/30/24 05:11 Other Labs: Lab Results x24hrs 03/30/24 03/30/24 03/30/24 Range/Units 05:11 05:11 00:00 WBC 10.6 (4.8-10.8) x10^3/uL RBC 2.65 L (4.70-6.10) 10^6/uL Hgb 8.7 L 9.3 L (14.0-18.0) g/dL Hct 27.6 L 29.0 L (42.0-52.0) % MCV 104.2 H (80.0-94.0) fL MCH 32.8 H (27.0-31.0) pg MCHC 31.5 L (32.0-36.0) g/dL RDW 14.3 (12.0-15.0) % Plt Count 251 (130-450) 10^3/uL MPV 9.7 (7.4-11.4) fL Neut # (Auto) 8.5 H (1.5-6.6) 10^3/uL Lymph # (Auto) 0.8 L (1.5-3.5) 10^3/uL [place] # (Auto) 0.5 (0.0-1.0) 10^3/uL Eos # (Auto) 0.2 (0.0-0.7) 10^3/uL Baso # (Auto) 0.0 (0.0-0.1) 10^3/uL Absolute Nucleated RBC 0.00 x10^3/uL Nucleated RBC % 0.0 /100WBC Sodium 135 (135-145) mmol/L Potassium 3.7 (3.5-4.5) mmol/L Chloride 104 (101-111) mmol/L Carbon Dioxide 26 (21-32) mmol/L Anion Gap 5.0 L (6-13) BUN 46 H (6-20) mg/dL Creatinine 2.1 H (0.6-1.3) mg/dL Estimated GFR (MDRD) 30 L (>89) Glucose 169 H (74-104) mg/dL POC Whole Bld Glucose (70 - 100) mg/dL Calcium 7.6 L (8.5-10.3) mg/dL Magnesium 1.7 (1.7-2.3) mg/dL 03/29/24 03/29/24 03/29/24 Range/Units 21:00 16:28 11:36 WBC (4.8-10.8) x10^3/uL RBC (4.70-6.10) 10^6/uL Hgb (14.0-18.0) g/dL Hct (42.0-52.0) % MCV (80.0-94.0) fL MCH (27.0-31.0) pg MCHC (32.0-36.0) g/dL RDW (12.0-15.0) % Plt Count (130-450) 10^3/uL MPV (7.4-11.4) fL Neut # (Auto) (1.5-6.6) 10^3/uL Lymph # (Auto) (1.5-3.5) 10^3/uL [place] # (Auto) (0.0-1.0) 10^3/uL Eos # (Auto) (0.0-0.7) 10^3/uL Baso # (Auto) (0.0-0.1) 10^3/uL Absolute Nucleated RBC x10^3/uL Nucleated RBC % /100WBC Sodium (135-145) mmol/L Potassium (3.5-4.5) mmol/L Chloride (101-111) mmol/L Carbon Dioxide (21-32) mmol/L Anion Gap (6-13) BUN (6-20) mg/dL Creatinine (0.6-1.3) mg/dL Estimated GFR (MDRD) (>89) Glucose (74-104) mg/dL POC Whole Bld Glucose 203 H 208 H 183 H (70 - 100) mg/dL Calcium (8.5-10.3) mg/dL Magnesium (1.7-2.3) mg/dL 03/29/24 Range/Units 07:14 WBC (4.8-10.8) x10^3/uL RBC (4.70-6.10) 10^6/uL Hgb (14.0-18.0) g/dL Hct (42.0-52.0) % MCV (80.0-94.0) fL MCH (27.0-31.0) pg MCHC (32.0-36.0) g/dL RDW (12.0-15.0) % Plt Count (130-450) 10^3/uL MPV (7.4-11.4) fL Neut # (Auto) (1.5-6.6) 10^3/uL Lymph # (Auto) (1.5-3.5) 10^3/uL [place] # (Auto) (0.0-1.0) 10^3/uL Eos # (Auto) (0.0-0.7) 10^3/uL Baso # (Auto) (0.0-0.1) 10^3/uL Absolute Nucleated RBC x10^3/uL Nucleated RBC % /100WBC Sodium (135-145) mmol/L Potassium (3.5-4.5) mmol/L Chloride (101-111) mmol/L Carbon Dioxide (21-32) mmol/L Anion Gap (6-13) BUN (6-20) mg/dL Creatinine (0.6-1.3) mg/dL Estimated GFR (MDRD) (>89) Glucose (74-104) mg/dL POC Whole Bld Glucose 157 H (70 - 100) mg/dL Calcium (8.5-10.3) mg/dL Magnesium (1.7-2.3) mg/dL - Diagnostic Imaging Diagnostic Imaging Comments: Chest X-ray (03/27/24): Persistent dense consolidation of the left lung, with a parapneumonic effusion. Sepsis Event Note (H) - Evaluation Current Stage of Sepsis: Resolved Possible source of Sepsis: positive: Pulmonary - Sepsis Criteria Sepsis Criteria: Recorded Temperature greater than 38.3C or Less than 36C, Recorded Heart Rate greater than 90 bpm, Recorded Respiratory Rate greater than 20, WBC count greater than 12,000 or less than 4000, Metabolic: lactate > 2 mmol/L Assessment/Plan - Problem List (1) Acute upper GI bleed Impression: Developed bloody and melenic bowel movements, but not bright red blood per rectum. Most likely this is upper GI bleeding in nature in the setting of starting full anticoagulation for atrial fibrillation and elevated D-Dimer. Source is likely to be PUD but given his cirrhosis it is unclear if he has varices. -Lovenox discontinued. Place on IV Protonix and Octreotide infusions. -Check PT/INR, may need Vitamin K or FFP given poor nutritional status. -Follow H/H q6hr. -Transfuse for hemoglobin < 7 or < 8 and hemodynamic instability. - is coming to the hospital shortly, will discuss goals of care and possibility of transfer for higher level of care. (2) Acute blood loss anemia Impression: Due to his GI bleeding as noted above. -Follow H/H q6hr and transfuse as indicated as noted above. (3) Metabolic encephalopathy Impression: He has been confused since his presentation, which seems to be a metabolic encephalopathy due to his acute illness and infectious process (pneu monia/sepsis). Initially was treated with some Ativan for possible alcohol withdrawal but he seemed to be more sedated, dose Ativan and oxycodone were held. An ammonia level, TSH, B12 and head CT have all been unremarkable. He has been responding to antibiotics in the sense of no ongoing fevers and his white blood cell count is better, and he has no meningismus, thus a primary [employer] infection is unlikely. -Mentation fluctuates - at times he is improved, other times he has hallucinations. -Continue treating his infectious issues as noted below. -No focal neurologic deficits have been noted. Brain MRI was attempted, but was non-diagnostic due to motion artifacts. -Repeat ammonia level was normal. -He needs nutritional support due to poor oral intake. Were planning for NG tube and tube feeds today, but given GI bleed may need to consider PICC for TPN. Goals of care discussions to be held with when she arrives. (4) Pneumonia Impression: His admission chest x-ray appear to be more lobar consolidation and his viral studies were negative. He has not been producing much sputum thus unable to obtain sputum cultures. He was placed on IV ceftriaxone and azithromycin though he did not seem to respond to this. A repeat chest x-ray after admission showed progression of his left lung pneumonia and ceftriaxone was exchanged for cefepime. He continued to not have a good response and a chest CT was obtained that showed progression of the left upper lobe pneumonia to a multifocal left- sided pneumonia, with some concern for aspiration noted on CT (not original presentation). He completed 3 days of azithromycin and on 03/22 vancomycin and m etronidazole were added. Vancomycin was subsequently discontinued when MRSA swab was negative. Despite several days of Cefepime and Metronidazole, his WBC is still elevated, his BP is low and chest x-ray showed continued left sided pneumonia. -He was not responding antimicrobial therapy as noted above. -Blood cultures are no growth to date. -Changed antibiotics to Linezolid and Meropenem on 03/28 to cover resistant organisms given his unresolving pneumonia. -Sputum culture pending at this time. -Infectious issues seemed slightly improved once his antibiotics were changed to Linezolid and Meropenem. (5) Acute respiratory failure with hypoxia Impression: Secondary to his pneumonia. On 03/26 an ABG was checked off oxygen, which confirmed hypoxia and he required 4-5 liters [place] oxygen since then. -Continue treating pneumonia as noted above. -D-Dimer was checked and significantly elevated. Would not be inclined to obtain CTA Chest given borderline renal function. Started on empiric therapeutic Lovenox several days ago, but discontinued today due to GI bleed. -Had been diuresing as well given peripheral edema and elevated BNP (TTE with normal LVEF this hospitalization). Holding diuretics now due to GI bleed and hypotension. -Overall his hypoxia has improved and is on 1-2 liters NC. (6) Severe sepsis Impression: Severe sepsis is secondary to his left-sided pneumonia. He met criteria for severe sepsis due to acute kidney injury as well as altered mental status. -Blood cultures are no growth to date thus far. -Morning cortisol was normal. -Started Midodrine 5 mg TID on 03/27, currently with some improvement in his BP. Midodrine increased to 10 mg TID on 03/29. (7) Cirrhosis of liver with ascites Impression: Noted to have a cirrhotic morphology of his liver on imaging from admission. Since admission he has had development of increased abdominal distention in the setting of receiving significant IV fluids due to his ongoing hypotension and sepsis. -Abdominal ultrasound performed 03/28 confirms that he has ascites, which is evident on exam. -Was on IV lasix, holding for now due to GI bleed/hypotension. -Will need to try a diagnostic and possibly therapeutic paracentesis to rule out SBP, however the antibiotic regimen he is on currently would cover organisms appropriately. -Once he stabilizes further, could consider adding spironolactone but this would have to be monitored closely given his renal function. Qualifiers: Hepatic cirrhosis type: unspecified hepatic cirrhosis Qualified Code(s): K74.60 - Unspecified cirrhosis of liver; R18.8 - Other ascites (8) Atrial fibrillation with RVR Impression: The patient is on Plavix at home but not oral anticoagulation. His heart rate has been fluctuating during his stay here thus far, frequently having bursts of RVR but also spending time in normal rate. -Received IV Digoxin 250 mcg and 125 mcg pushes 03/25/24. Not on scheduled digoxin due to underlying renal function. -Keep K > 4 and Mg > 2. Receiving IV potassium chloride today. -TTE earlier this hospitalization was unremarkable. -Continue metoprolol tartrate at 12.5 mg twice daily (had been held due to hypotension, but resumed on 03/27). Unable to increase dose further yet, but hopefully with increased dose of Midodrine we can increase Metoprolol to help with the heart rate. Could consider amiodarone, but he had not been on long- term anticoagulation previously. -Holding therapeutic anticoagulation as noted above. (9) FILIPPO (acute kidney injury) Impression: He has baseline CKD with creatinine around 1.4-1.6 normally. On admission his creatinine was 2.3 which is most likely due to decreased oral intake, prerenal causes from sepsis and dehydration. There could be a small component of contrast-induced nephropathy as well. -Renal ultrasound unremarkable. -CK is unremarkable. -Avoid unnecessary nephrotoxins and renally dose medications as appropriate. -Daily BMP. -Renal function is slowly worsening over past 48 hours. (10) Physical deconditioning Impression: As a result of his dehydration, decreased oral intake and acute illness with severe sepsis he is now very deconditioned. -PT/OT consulted. -If he improves and survives the hospitalization, he will require SNF placement. -As noted above we will need to initiate alternative modes of nutrition as he is unable to take adequate oral caloric intake. Once he gets nutrition this should hopefully help his physical deconditioning. (11) Controlled type 2 diabetes mellitus without complication, without long-term current use of insulin Impression: He is followed by [facility] - [place], [place]. His hemoglobin A1c is 7.8%. He initially was on Lantus during the start of the hospitalization but due to his poor diet and poor oral intake this has been discontinued. -Continue sliding scale insulin for the time being.
[2024-03-30 07:37] LABS: INR 1.9 (0.8-1.2); PT - PROTHROMBIN TIME 19.9 secs (9.9-12.6)
[2024-03-30 07:40] LABS: FECAL OCCULT BLOOD (FIT) POSITIVE (NEGATIVE)
[2024-03-30] MEDS: MAGNESIUM SULFATE 2 GRAM 2 GM/50 ML BAG IV ONE (07:59)
[2024-03-30] MEDS: ALBUMIN 25% 12.5 GM/50 ML VIAL IV STA (08:55)
[2024-03-30] MEDS ORDERED: ENOXAPARIN 100 MG/ML SYRINGE SUBQ SCH (09:00)
[2024-03-30] MEDS ORDERED: PANTOPRAZOLE 40 MG VIAL IV SCH (09:00)
[2024-03-30] MEDS ORDERED: FUROSEMIDE 20 MG/2 ML VIAL IVP SCH (09:00)
[2024-03-30] MEDS ORDERED: PANTOPRAZOLE 40 MG VIAL ONE (09:03)
[2024-03-30] MEDS: PANTOPRAZOLE 80 MG in SODIUM CHLORIDE 0.9% 100ML 100 ML IV SCH (09:09)
[2024-03-30] MEDS: POTASSIUM CHLOR 10 MEQ/100 ML 10 MEQ/100 ML BAG IV SCH (09:57)
[2024-03-30] MEDS: OCTREOTIDE 500 MCG in SODIUM CHLORIDE 0.9% 100ML 99 ML IV SCH (11:24)
--- NOTE | 2024-03-30 11:51 | DISCHARGE SUMMARY ---
"Discharge Summary Admit Date: 03/19/24 Discharge Date: 03/30/24 Discharging Provider: King Phillips MD Primary Care Provider: Josemanuel Daigle Code Status: Do Not Attempt Resuscitation Condition at Discharge: Serious Discharge Disposition: 02 Transfer Acute Care Hosp Discharge Facility Name: [facility] - accepted by Dr. Sheila Joe (hospitalist) - DIAGNOSES Admission Diagnoses: 1. Sepsis 2. Pneumonia 3. Atrial fibrillation with RVR 4. Acute kidney injury superimposed on CKD 5. Controlled type 2 diabetes mellitus 6. Hypertension 7. Cirrhosis of the liver 8. History of radiation proctitis 9. DO NOT RESUSCITATE/DO NOT INTUBATE status Discharge Diagnoses with Status of Each Condition: 1. Acute metabolic encephalopathy 2. Acute GI bleeding with acute blood loss anemia 3. Nonresolving left-sided pneumonia 4. Acute respiratory failure with hypoxia 5. Severe sepsis 6. Cirrhosis of the liver with ascites (follows with GI provider Dr. Ngoc M[facility]quez MD at [facility]) 7. Atrial fibrillation with RVR (follows with Cardiology provider [facility] 8. Coagulopathy 9. Elevated D-dimer 10. Acute kidney injury superimposed on chronic kidney disease 11. Controlled type 2 diabetes mellitus 12. Inadequate oral intake/severe protein calorie malnutrition 13. Physical deconditioning 14. DO NOT INTUBATE/DO NOT RESUSCITATE status Other Chronic Medical Conditions: 1. History of prostate cancer s/p radiation 2004 (also with BPH) 2. Peripheral vascular disease - s/p left iliac stent 3. Gout 4. GERD 5. Hyperlipidemia 6. Renal artery stenosis 7. AAA 8. Spongiotic psoriasiform dermatitis 9. Ureteral stent removal with ureteral resection 10. Colonoscopy 2019 ([facility]) - angioectasia of cecum, radiation proctitis, hemorrhoids - HPI History of Present Illness: Per HPI by Dr. Jenn Tiwari on 03/19/24: This is an 84-year-old white male who has a past medical history of irritable bowel syndrome and intermittent diarrhea, type 2 diabetes mellitus, hypertension, peripheral vascular disease, history of prostate cancer, and a history of gout that began having fever, shortness of breath, generalized weakness/mylagias and headache on 03/17. No cough. No shortness of breath. He came to the emergency room ~00:10 March 18 and viral panel was negative for respiratory disease, white cell count was normal, and lactic acid was mildly elevated at 2.3 but came down to 1.3 with fluids. UA was negative, and CT of the abdomen was done because of the diarrhea and showed small amount of ascites which is a new diagnosis for him. His AAA was unchanged and CXR negative. Since he seemed to have resolved his acute symptomatology, he was sent home after an overnight stay in the ER. He returns at ~16:30 today the request of the ER provider. The ER provider checked up on him today via phone call. And the answered the phone to say that has been was worse today. He now had a fever to 102. He felt palpitations and tachycardia. So he was asked to come back to the emergency room. His heart rate was 120. Respirations rate were 29. White cell count was normal yesterday and now elevated today. Lactic acid was 7.8 and he had new acute kidney injury. A chest x-ray that was negative yesterday now showed lobar left upper lobe infiltrate. Repeat abdomen was done because of left lower quadrant achiness and continues to show the same ascites. This gentleman has a history of abdominal aortic aneurysm and it is unchanged in size. I discussed the case with the emergency room provider. I do feel that the patient has pneumonia. The diarrhea may or may not be a new problem considering his irritable bowel syndrome history. At times diarrhea is associated with mycoplasma pneumonia but this patient's chest x-ray looks like a simple lobar pneumonia and not mycoplasma. He has received an initial dose of Zosyn in the emergency room with azithromycin. He was given Zosyn because I thought that there may be a abdominal component to his sepsis criteria. ROS: He is usually followed by [facility]. There is no MD at that clinic so he sees whichever provider is in the clinic. In the past he is seeing Aye Acosta He has also seen Reyna vital. The fever is an acute problem. He does not have indolent fevers, weight loss, weight gain. Does have myalgias since yesterday. Intermittent rigors. describes him as an gentleman who is very sedentary. Does not really exercise. But is able to take care of himself with regards to feeding, dressing, driving, paying bills. Chronic hearing loss and chronic vision loss but no dysphagia, dysarthria Dyspnea on exertion that is getting progressively worse over the last 6 months. Usually walking to the mailbox and back but in the last few months that is getting worse. But no history of COPD or asthma or interstitial pulmonary fibrosis. No cough. No cough phlegm production. He is followed by cardiology at [facility]. He has had a recent change in providers and his cannot remember the name of the new provider. Intermittent diarrhea. Ongoing for several years. Colonoscopy was negative For colitis. He did have blood in his stool this morning for the first time. Status post seeds for prostate cancer at [place]. He is left with occasional urgency, frequency, and very rarely incontinence. With this episode urine has turned brown but no foul-smelling urine. No urgency, frequency, dysuria. Usually does not have problems with joint pain. However his back is killing him today. Lumbar area. No radiating pain down the legs or circling around. No history of depression, anxiety. Neuro history is negative for memory loss, seizures. He has been getting more unsteady on his feet. Has been ongoing for several months now. no history of syncope. - CONSULTS | PROCEDURES Consultations: None - HOSPITAL COURSE Hospital Course: The patient was admitted due to his confusion, sepsis and pneumonia. For his pneumonia, his viral studies were all negative on 03/18 and his blood cultures remained negative throughout his hospitalization even after several rechecks. He initially was placed on IV ceftriaxone and azithromycin, completing a 3-day course of 500 mg azithromycin. He did not seem to be responding clinically and a repeat chest x-ray after admission showed progression of his left-sided pneumonia. Ceftriaxone was then switched to cefepime though he continued to lack a good response. A chest CT was obtained that showed progression of the left upper lobe pneumonia to a multifocal left-sided pneumonia, with some concern for aspiration noted on the CT however there had not been any clinical concern for aspiration leading to his current presentation at the time of admission. On March 22, vancomycin and metronidazole were added to cef epime. After 2 days of vancomycin, a MRSA swab was negative and his vancomycin was discontinued. Despite ongoing therapy with cefepime and metronidazole, his white blood cell count was still elevated and clinically was not improving, even worsening. A repeat chest x-ray on the showed continued left-sided pneumonia. His antibiotics were changed to linezolid and meropenem on 03/28 to cover resistant organisms for his unresolving pneumonia. He was finally able to expectorate sputum and on 03/29 a sputum culture was obtained that showed many white blood cells however no organisms are seen with a culture that is still in process at the time of this dictation. Clinically his infectious issues seem to improve with the change of antibiotics to linezolid and meropenem. During his stay he also had significant issues with altered mental status, at some times he was nearly obtunded and other times he was able to be conversant and oriented. This confusion was felt to be secondary to his acute illness and underlying sepsis/pneumonia. The patient and family denied any alcohol use though the EMR indicated 1 to 2 glasses/day and is unclear which is accurate. He was originally given some Ativan in the event that he had some withdrawal but this made the situation worse and was discontinued. TSH, B12, ammonia and a head CT along with ABG were all unremarkable for causes of his confusion. He had no meningismus, headaches, ongoing fevers or focal neurologic dysfunction. An MRI of his brain was attempted but was nondiagnostic due to the patient movement. His mentation continued to fluctuate, at times being fairly alert and oriented though appearing exhausted and easily falling asleep. Other times he would be very lethargic and difficult to arouse. A repeat ammonia level was unremarkable and over the several days prior to transfer, his mentation had overall improved though he was still very weak. Part of this may be due to severe malnutrition as he has had horrible oral intake during his hospitalization and there were plans to start either tube feeds or parenteral nutrition prior to his acute GI bleeding issue noted below. On 03/26 the patient was more altered and lethargic than other days and ABG showed no issue with CO2 retention however at the time he was on room air and found to be hypoxic with a pO2 of 40 and oxygen saturation of 72. He was placed on 5 L of oxygen at that time. As part of his hypoxic respiratory failure, he was placed on 4 to 5 L of nasal cannula and a D-dimer was obtained that was significantly elevated at greater than 1050. He was placed on therapeutic enoxaparin as his GFR was adequate for this and IV access was limited for hepari n drip at the time. His BNP was also noted to be elevated at over 800 and given increasing abdominal ascites, scrotal edema and peripheral edema, he was placed on IV Lasix. With the IV Lasix and changing of his antibiotics for his pneumonia, his hypoxia did improve and was decreased down to 1 to 2 L at the time of transfer. A pulmonary embolism was not ruled out due to borderline renal function and we do not have a V/Q scan capability at our facility. For his atrial fibrillation with RVR and severe sepsis, treatment had been limited due to ongoing hypotension in the range of systolic blood pressures 90- 105 most of the time. He did require 2 separate doses of IV digoxin but this was not continued due to his renal function. Ultimately he was placed on midodrine 5 mg 3 times daily and this was uptitrated to 10 mg 3 times daily which allowed us to reinitiate his metoprolol 12.5 mg twice daily. This combination was not ideal, it did allow the heart rate to be controlled and increased his systolic blood pressures into the 100-120 range. Amiodarone was not used as he had not been on chronic anticoagulation prior. An echocardiogram was obtained on 03/20 which showed a normal left ventricular size and function with an EF of 55% and mildly dilated left atrium, however the rest of the echocardiogram was unremarkable. On the night of 03/29 to 03/30, the patient developed a large melenic bowel movement that also had some blood clot material. He had no clinical symptoms of this and denied having any abdominal pain, nausea or back pain. He also had no bright red blood per rectum. His enoxaparin was discontinued, with the last dose being given approximately 16 hours prior to the onset of GI bleeding. His blood pressure started to decrease into the 80-90 systolic range and his hemoglobin was dropping from 10.6 down to 8.7 and his INR had increased up to 1.9. He was placed on an IV Protonix drip and also IV octreotide drip though it is unclear if he has a history of esophageal varices. It is unclear if this is truly an acute upper GI bleed or if this is more from his cecal angioectasia, though we have not noticed any bright red blood per rectum making an upper source more likely. He was given 2 units of FFP as well as 10 mg IV vitamin K for his coagulopathy. He was ordered 1 unit PRBC at the time of transfer. Also of note, during the duration of his hospitalization he was noted to have progressively worsening abdominal distention. The CT scan that he had on admission showed that he had only minimal ascites however clinically he appeared to develop worsening ascites given the fluids he was receiving for his sepsis. An abdominal ultrasound on 03/28 did confirm that he had ascites and there were plans to perform a diagnostic and therapeutic paracentesis to rule out SBP and obtain further data, but unfortunately there was not a large enough pocket of fluid for a safe paracentesis. He has been on IV antibiotics during his entire hospitalization, thus it is unclear if he would truly have SBP as he would not of had that at the time of admission. OVERALL ISSUES NEEDING ADDRESSED: 1. Acute GI bleeding treatment and evaluation - main reason for transfer. 2. Nonresolving pneumonia - seems to be improving on linezolid and meropenem, but if this does not resolve he may need bronchoscopy with BAL to rule out other pathogens vs malignancy. 3. Ascites - may need re-evaluation to see if a diagnostic/therapeutic paracentesis would be possible. 4. Nutrition - given his very poor oral intake, which is due to his acute illness, deconditioning and continued confusion limiting his ability to eat food, he has not had good nutrition this entire hospitalization. We are trying to place a PICC line to initiate TPN. 5. Optimization of Atrial Fibrillation / Hypotension / Confusion and other conditions. HOSPITAL COURSE BY PROBLEMS (1) Acute upper GI bleed Impression: Developed bloody and melenic bowel movements, but not bright red blood per rectum. Most likely this is upper GI bleeding in nature in the setting of starting full anticoagulation for atrial fibrillation and elevated D-Dimer. though he has a history of angioectasia of the cecum and radiation proctitis. No imaging has verified if he has esophageal/gastric varices. -Lovenox discontinued. Place on IV Protonix and Octreotide infusions. -INR increased to 1.9, will give 2 units FFP and 10 mg IV Vitamin K. -Follow H/H q6hr. -Transfuse for hemoglobin < 7 or < 8 and hemodynamic instability. Receiving 1 unit PRBC prior to transfer. -Planning on transferring to another facility for higher level of care. (2) Acute blood loss anemia Impression: Due to his GI bleeding as noted above. -Follow H/H q6hr and transfuse as indicated as noted above. (3) Metabolic encephalopathy Impression: He has been confused since his presentation, which seems to be a metabolic encephalopathy due to his acute illness and infectious process (pneumonia/sepsis). Initially was treated with some Ativan for possible alcohol withdrawal but he seemed to be more sedated, dose Ativan and oxycodone were held. An ammonia level, TSH, B12 and head CT have all been unremarkable. He h as been responding to antibiotics in the sense of no ongoing fevers and his white blood cell count is better, and he has no meningismus, thus a primary DAUB [employer] MIXER infection is unlikely. -Mentation fluctuates - at times he is improved, other times he has hallucinations. -Continue treating his infectious issues as noted below. -No focal neurologic deficits have been noted. Brain MRI was attempted, but was non-diagnostic due to motion artifacts. -Repeat ammonia level was normal. -He needs nutritional support due to poor oral intake. Were planning for NG tube and tube feeds today, but given GI bleed may need to consider PICC for TPN. (4) Pneumonia Impression: His admission chest x-ray appear to be more lobar consolidation and his viral studies were negative. He has not been producing much sputum thus unable to obtain sputum cultures. He was placed on IV ceftriaxone and azithromycin though he did not seem to respond to this. A repeat chest x-ray after admission showed progression of his left lung pneumonia and ceftriaxone was exchanged for cefepime. He continued to not have a good response and a chest CT was obtained that showed progression of the left upper lobe pneumonia to a multifocal left- sided pneumonia, with some concern for aspiration noted on CT (not original presentation). He completed 3 days of azithromycin and on 03/22 vancomycin and metronidazole were added. Vancomycin was subsequently discontinued when MRSA swab was negative. Despite several days of Cefepime and Metronidazole, his WBC is still elevated, his BP is low and chest x-ray showed continued left sided pneumonia. -He was not responding antimicrobial therapy as noted above. -Blood cultures are no growth to date. -Changed antibiotics to Linezolid and Meropenem on 03/28 to cover resistant organisms given his unresolving pneumonia. -Sputum culture pending at this time. -Infectious issues seemed slightly improved once his antibiotics were changed to Linezolid and Meropenem. (5) Acute respiratory failure with hypoxia Impression: Secondary to his pneumonia. On 03/26 an ABG was checked off oxygen, which confirmed hypoxia and he required 4-5 liters NC oxygen since then. -Continue treating pneumonia as noted above. -D-Dimer was checked and significantly elevated. Would not be inclined to obtain CTA Chest given borderline renal function. Started on empiric therapeutic Lovenox several days ago, but discontinued today due to GI bleed. -Had been diuresing as well given peripheral edema and elevated BNP (TTE with normal LVEF this hospitalization). Holding diuretics now due to GI bleed and hypotension. -Overall his hypoxia has improved and is on 1-2 liters NC. (6) Severe sepsis Impression: Severe sepsis is secondary to his left-sided pneumonia. He met criteria for severe sepsis due to acute kidney injury as well as altered mental status. -Blood cultures are no growth to date thus far. -Morning cortisol was normal. -Started Midodrine 5 mg TID on 03/27, currently with some improvement in his BP. Midodrine increased to 10 mg TID on 03/29. (7) Cirrhosis of liver with ascites Impression: Noted to have a cirrhotic morphology of his liver on imaging from admission. Since admission he has had development of increased abdominal distention in the setting of receiving significant IV fluids due to his ongoing hypotension and sepsis. -Abdominal ultrasound performed 03/28 confirms that he has ascites, which is evident on exam. -Was on IV lasix, holding for now due to GI bleed/hypotension. -Will need to try a diagnostic and possibly therapeutic paracentesis to rule out SBP, however the antibiotic regimen he is on currently would cover organisms appropriately. -Once he stabilizes further, could consider adding spironolactone but this would have to be monitored closely given his renal function. Qualifiers: Hepatic cirrhosis type: unspecified hepatic cirrhosis Qualified Code(s): K74.60 - Unspecified cirrhosis of liver; R18.8 - Other ascites (8) Atrial fibrillation with RVR Impression: The patient is on Plavix at home but not oral anticoagulation. His heart rate has been fluctuating during his stay here thus far, frequently having bursts of RVR but also spending time in normal rate. -Received IV Digoxin 250 mcg and 125 mcg pushes 03/25/24. Not on scheduled digoxin due to underlying renal function. -Keep K > 4 and Mg > 2. Receiving IV potassium chloride today. -TTE earlier this hospitalization was unremarkable. -Continue metoprolol tartrate at 12.5 mg twice daily (had been held due to hypotension, but resumed on 03/27). Unable to increase dose further yet, but hopefully with increased dose of Midodrine we can increase Metoprolol to help with the heart rate. Could consider amiodarone, but he had not been on long- term anticoagulation previously. -Holding therapeutic anticoagulation as noted above. (9) FILIPPO (acute kidney injury) Impression: He has baseline CKD with creatinine around 1.4-1.6 normally. On admission his creatinine was 2.3 which is most likely due to decreased oral intake, prerenal causes from sepsis and dehydration. -Renal ultrasound unremarkable. -CK is unremarkable. -Avoid unnecessary nephrotoxins and renally dose medications as appropriate. -Daily BMP. -Renal function is slowly worsening over past 48 hours. (10) Physical deconditioning Impression: As a result of his dehydration, decreased oral intake and acute illness with severe sepsis he is now very deconditioned. -PT/OT consulted. -If he improves and survives the hospitalization, he will require SNF placement. -As noted above we will need to initiate alternative modes of nutrition as he is unable to take adequate oral caloric intake. Once he gets nutrition this should hopefully help his physical deconditioning. (11) Controlled type 2 diabetes mellitus without complication, without long-term current use of insulin Impression: He is followed by [facility]. His hemoglobin A1c is 7.8%. He initi ally was on Lantus during the start of the hospitalization but due to his poor diet and poor oral intake this has been discontinued. -Continue sliding scale insulin for the time being. - ALLERGIES Allergies/Adverse Reactions: Allergies Allergy/AdvReac Type Severity Reaction Status Date / Time morphine Allergy Unknown Verified 03/19/24 16:28 - MEDICATIONS Home Medications: Ambulatory Orders Medication Instructions Recorded Confirmed Clopidogrel [Plavix] 75 mg PO DAILY 10/04/21 03/19/24 Glimepiride 4 tab PO BID 10/04/21 03/19/24 Pioglitazone [Actos] 30 mg PO DAILY 03/18/24 03/19/24 Potassium Chloride [Klor-Con 10] 10 meq PO DAILY 03/18/24 03/19/24 Rosuvastatin Calcium 20 mg PO HS 03/18/24 03/19/24 Furosemide [Lasix] 1 tab PO DAILY 03/20/24 03/20/24 - PHYSICAL EXAM AT DISCHARGE General Appearance: positive: Other (He is drowsy and lethargic but awakens to voice stimulation and answers questions appropriately. He appears acutely and chronically ill, looking frail and without vitality. Appears in pain from his Aquino catheter.) Eyes Bilateral: positive: Normal inspection, PERRL, EOMI ENT: positive: ENT inspection nml, Pharynx nml, Dry mucous membranes Neck: positive: Nml inspection, Thyroid nml, No JVD, Trachea midline Respiratory: positive: Other (He is in no respiratory distress and has good air movement on the right side though slightly diminished air movement in the right base. His left lung has crackles and coarse breath sounds throughout but no wheezing and has globally diminished air movement.) Cardiovascular: positive: Other (Tachycardic and irregular rhythm, 2/6 systolic murmur heard at the right upper sternal border and left lower sternal border) Peripheral Pulses: positive: 1+ Abdomen: positive: Other (Distended with fluid wave, somewhat firm but only minimal tenderness and no guarding or rebound noted. Bowel sounds are hypoactive but present.) Skin: positive: No rash, Warm, Dry, Pallor Extremities: positive: Other (Has 2-3+ pitting peripheral edema in both lower extremities. Capillary refill is less than 2 seconds bilaterally.) Neurologic/Psychiatric: positive: Other (He is lethargic but when awoken he is oriented to year, place, situation. He has no focal neurologic deficit but is diffusely weak in all extremities to the point that he can hardly do any movements even in bed. Downgoing Babinski bilaterally. Cranial nerves II through XII grossly intact.) - LABS Result Diagrams: 03/30/24 11:50 03/30/24 05:11 Other Lab Results: Coagulation: PT/INR 1.6 (03/19) --> 1.8 (03/27) --> 1.9 (03/30) PTT 37.7 (03/27) D-Dimer > 1050 (03/27) Blood Gas: ABG (03/26): pH 7.37, pCO2 36, pO2 40, HCO3 20.2, O2 saturation 72% on room air Serology: Hepatitis Panel (03/20): Hepatitis A IgM negative, hepatitis Bs antigen negative, hepatitis B core IgM negative, hepatitis C antibody nonreactive Other Source: MRSA Screen (03/24): negative C Diff Tox B Gene (03/22): negative Stool Occult (03/30): positive Urinalysis (03/19): Nitrite negative, leukocyte Estrace negative, occult blood positive, ketones trace, urine protein 100, specific gravity 1.015, urine RBC 11-25, urine WBC 0-3, squamous epithelial cells few, bacteria few, urine casts 0-2 coarse granular Chemistry Tests: A1c (03/20): 7.7% CK (03/24): 23 LDH (03/20): 296 CRP (03/27): 7.0 BNP (03/27): 815 Ammonia: 29.4 (03/22) --> 26.2 (03/29) Vitamin B12 (03/22): 379 TSH (03/22): 1.08 Procalcitonin (03/27): 1.87 Cortisol 5:20 AM sample (03/24): 18.8 Iron Panel (03/20): Iron 23, TIBC 266, transferrin 190, percent saturation 9% Creatinine since admission: 2.1 --> 1.9 --> 1.8 --> 1.9 --> 1.7 --> 1.8 --> 1.9 --> 1.9 --> 1.8 --> 1.8 --> 1.9 --> 2.1 Hemoglobin baseline: 10.0 - 11.0 this admission Microbiology: Respiratory Panel multiplex PCR (03/18): negative for all pathogens (including COVID, RSV, Flu) Blood Cultures (03/18): NGTD x 4 bottles Blood Cultures (03/19): NGTD x 4 bottles Blood Cultures (03/22): NGTD x 4 bottles Respiratory Culture (03/29): culture pending, gram stain shows no organisms but many WBC's - DIAGNOSTIC IMAGING Diagnostic Imaging Results Comments: Chest X-ray (03/19): 1. New left upper lobe consolidation. Suspect pneumonia or aspiration. 2. Prominent left mediastinal contour. This could be due to to underlying adenopathy. Abdomen/Pelvis CT with IV Contrast (03/19): 1. No significant interval change. No bowel obstruction. No pneumoperitoneum. 2. Small volume of ascites is unchanged. Suspect cirrhosis. 3. Small bilateral kidney stones. No hydronephrosis. Reimplantation of the l eft ureter. 4. Iliac stent graft repair. 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 Chest CT (03/19): 1. Left upper lobe consolidation most consistent with pneumonia. 2. A few small reactive lymph nodes. Lower Extremity Venous Duplex, Bilateral (03/19): No deep venous thrombosis of the visualized lower extremities. TTE (03/19): 1. Normal left ventricular size and function, EF 55%. The left atrium is mildly dilated. 2. The right ventricle is normal in size and function. Pulmonary pressure is normal. 3. Trileaflet aortic valve with mild aortic regurgitation. 4. Mildly dilated ascending aorta, 4.1 cm. Chest X-ray (03/21): Compared to chest radiograph dated March 19, patchy consolidation in the left hemithorax is increased with a small left pleural effusion compatible with aspiration and/or pneumonia. Head CT (03/22): No acute intracranial pathology. Chest CT (03/22): 1. Compared to CT chest dated March 19, multifocal consolidation in the left hemithorax, worse within the left upper lobe, has increased, suggestive of worsening infection. Recommend radiographic follow-up to document resolution and rule out underlying malignancy. 2. Mild pulmonary edema with new small left pleural effusion. 3. Cirrhotic liver morphology with moderate volume ascites, increased compared to prior CT. Subtle hypodensity near the intrahepatic IVC is better seen on prior contrast-enhanced CT. Recommend a CT or MRI liver mass protocol for further evaluation. 4. Cardiomegaly with coronary vessel calcification/LAD stent. Renal Ultrasound (03/24): 1. Limited exam due to body habitus and limited mobility. 2. Probable nonobstructing 9 mm right superior pole calculus. No hydronephrosis. Left kidney is not visualized. 3. Prevoid volume of 56.6 cc. Postvoid residual volume calculated. Left ureteral jet visualized. Right ureteral jet not visualized. Brain MRI (03/26): Significantly limited exam which was terminated after sagittal FLAIR and gradient echo sequences. Significant motion artifact. Age-related global volume loss and chronic microvascular ischemic changes are present. No diffusion weighted imaging was obtained, acute infarction cannot be excluded. No susceptibility artifact is seen. Chest X-ray (03/27): Persistent dense consolidation of the left lung, with a parapneumonic effusion. Abdominal Ultrasound (03/28): Abdominal ascites is seen within all 4 quadrants, no safe pockets for aspiration. - SEPSIS Current Stage of Sepsis: Severe sepsis Possible source of Sepsis: Pulmonary Sepsis Criteria: Recorded Temperature greater than 38.3C or Less than 36C, Recorded Heart Rate greater than 90 bpm, Recorded Respiratory Rate greater than 20, WBC count greater than 12,000 or less than 4000, Metabolic: lactate > 2 mmol/L"
[2024-03-30 12:01] LABS: HCT - HEMATOCRIT 25.8 % (42.0-52.0); HGB - HEMOGLOBIN 8.2 g/dL (14.0-18.0)
[2024-03-30] MEDS: INSULIN REGULAR, HUMAN 300 UNIT/3 ML PEN SUBQ SCH (12:36)
[2024-03-30] MEDS: SODIUM CHLORIDE 0.9% IV SCH (12:48)
[2024-03-30] MEDS: MEROPENEM IV SCH (12:48)
[2024-03-30] MEDS ORDERED: PHYTONADIONE 10 MG/ML AMP ONE (14:09)
[2024-03-30] MEDS: PHYTONADIONE INJ (ADULT) 10 MG in SODIUM CHLORIDE 0.9% 50 ML IV ONE (14:17)
[2024-03-30] MEDS: ALBUMIN 25% 12.5 GM/50 ML VIAL IV ONE (14:49)
[2024-03-30 16:25] VITALS: BP 105/60; O2SAT 96
[2024-03-30 18:19] LABS: HCT - HEMATOCRIT 24.3 % (42.0-52.0); HGB - HEMOGLOBIN 7.5 g/dL (14.0-18.0)
[2024-03-31 05:14] LABS: ADENOVIRUS F 40/41 Not Detected (Not Detected); ASTROVIRUS Not Detected (Not Detected); C DIFFICILE TOXIN A/B Not Detected (Not Detected); CAMPYLOBACTER Not Detected (Not Detected); CRYPTOSPORIDIUM Not Detected (Not Detected); CYCLOSPORA CAYETANENSIS Not Detected (Not Detected); ENTAMOEBA HISTOLYTICA Not Detected (Not Detected); ENTEROAGGREGATIVE E COLI Not Detected (Not Detected); ENTEROPATHOGENIC E COLI Not Detected (Not Detected); ENTEROTOXIGENIC E COLI Not Detected (Not Detected); GIARDIA LAMBLIA Not Detected (Not Detected); NOROVIRUS GI/GII Not Detected (Not Detected); PLESIOMONAS SHIGELLOIDES Not Detected (Not Detected); ROTAVIRUS A Not Detected (Not Detected); SALMONELLA Not Detected (Not Detected); SAPOVIRUS Not Detected (Not Detected); SHIGA-TOXIN-PRODUCING E COLI Not Detected (Not Detected); SHIGELLA/ENTEROINVASIVE E COLI Not Detected (Not Detected); VIBRIO Not Detected (Not Detected); VIBRIO CHOLERAE Not Detected (Not Detected); YERSINIA ENTEROCOLITICA Not Detected (Not Detected)
== END 2024-03-30 19:00 | disposition short-term general hospital (02) | DRG 871 ==
LOC: EDUNIT# → ED 16:25 → MS2 17:50
PROVIDERS: ADMIT Specialist; ATTEND Hospitalist
DX: A41.9 Sepsis, unspecified organism (principal); E43 Unspecified severe protein-calorie malnutrition; G93.41 Metabolic encephalopathy; J18.9 Pneumonia, unspecified organism; R10.32 Left lower quadrant pain; I45.10 Unspecified right bundle-branch block; I25.10 Atherosclerotic heart disease of native coronary artery without angina pectoris; J96.01 Acute respiratory failure with hypoxia; N17.9 Acute kidney failure, unspecified; D62 Acute posthemorrhagic anemia; D68.9 Coagulation defect, unspecified; K92.1 Melena; K62.5 Hemorrhage of anus and rectum; R18.8 Other ascites; I48.91 Unspecified atrial fibrillation; N18.9 Chronic kidney disease, unspecified; E11.22 Type 2 diabetes mellitus with diabetic chronic kidney disease; I12.9 Hypertensive chronic kidney disease with stage 1 through stage 4 chronic kidney disease, or unspecified chronic kidney disease; K74.60 Unspecified cirrhosis of liver; R65.20 Severe sepsis without septic shock; M10.9 Gout, unspecified; K21.9 Gastro-esophageal reflux disease without esophagitis; I70.1 Atherosclerosis of renal artery; I71.40 Abdominal aortic aneurysm, without rupture, unspecified; L30.8 Other specified dermatitis; K58.0 Irritable bowel syndrome with diarrhea; E11.51 Type 2 diabetes mellitus with diabetic peripheral angiopathy without gangrene; H54.7 Unspecified visual loss; H91.90 Unspecified hearing loss, unspecified ear; E86.0 Dehydration; R63.8 Other symptoms and signs concerning food and fluid intake; E78.00 Pure hypercholesterolemia, unspecified; G47.9 Sleep disorder, unspecified; M54.9 Dorsalgia, unspecified; Z66 Do not resuscitate; Z79.4 Long term (current) use of insulin; Z79.82 Long term (current) use of aspirin; Z79.899 Other long term (current) drug therapy; Z80.3 Family history of malignant neoplasm of breast; Z82.49 Family history of ischemic heart disease and other diseases of the circulatory system; Z85.46 Personal history of malignant neoplasm of prostate; Z87.891 Personal history of nicotine dependence; Z92.3 Personal history of irradiation
CPT/HCPCS: 36415; 36600; 70450; 70551; 71045; 71250; 71260; 74177; 76705; 76770; 80048; 80053; 80074; 80076; 81001; 82140; 82274; 82533; 82550; 82607; 82803; 83036; 83540; 83605; 83615; 83735; 83880; 84100; 84145; 84443; 84466; 85014; 85018; 85025; 85045; 85379; 85610; 85730; 86140; 86850; 86900; 86901; 86920; 87040; 87070; 87205; 87493; 87507; 87640; 93005; 93307; 93970; 96365; 97162; 97166; 97530; 99291; A9270; J0131; J1650; J1815; J2020; J2060; J2185; J3370; J3490; J3590; J7040; J7120; P9017; P9047; Q9967; 81599; 84157; 87086